=== PATIENT | female | born 1950 | race Two or more races ===

== ENCOUNTER 2020-08-21 05:56 | Outpatient (REF) | payer MEDICARE, SELFPAY ==
[2020-08-21 06:57] LABS: Basophils Absolute Auto 0.1 X10*3/uL (0.0-0.2); Basophils Percent Auto 1.1 % (0-2); Eosinophils Absolute Auto 0.6 X10*3/uL (0.0-0.4); Eosinophils Percent Auto 7.8 % (0-4); Hematocrit 40.3 % (37-47); Hemoglobin 12.8 g/dl (12.0-16.0); Imm Gran Abs Auto 0.04 X10*3/uL (0.00-0.03); Imm Gran Pct Auto 0.6 % (0.0-0.4); Lymphocytes Absolute Auto 2.5 X10*3/uL (1.2-4.9); Lymphocytes Percent Auto 35.7 % (20-40); MANUAL DIFF FLAG NO; Mean Corpuscular HGB Conc 31.8 g/dl (31.0-35.0); Mean Corpuscular Hemoglobin 27.4 pg (27.0-33.0); Mean Corpuscular Volume 86.1 fL (80-98); Mean Platelet Volume 9.9 fL (9.4-12.3); Monocytes Absolute Auto 0.7 X10*3/uL (0.1-1.2); Monocytes Percent Auto 9.9 % (2-11); Neutrophils Absolute Auto 3.2 X10*3/uL (2.0-8.3); Neutrophils Percent Auto 44.9 % (45-73); Platelet Count 268 X10*3/uL (160-400); Red Blood Count 4.68 X10*6/uL (4.20-5.50); Red Cell Distribution Width 13.3 % (11.0-16.0); White Blood Count 7.1 X10*3/uL (4.8-10.8)
[2020-08-21 07:36] LABS: Alanine Aminotransferase 11 U/L (0-31); Albumin Level 4.2 g/dL (3.5-5.0); Alkaline Phosphatase 67 U/L (39-117); Anion Gap 12 (12-20); Aspartate Amino Transferase 14 U/L (5-31); Bilirubin Total 0.5 mg/dL (0.0-1.0); Blood Urea Nitrogen 14 mg/dL (9-16); Calcium 8.9 mg/dL (8.4-10.2); Carbon Dioxide 28 mmol/L (22-29); Chloride 103 mmol/L (96-108); Cholesterol 170 mg/dL; Estimated Glomerular Filt Rate > 60; Glucose Random 110 mg/dL (60-115); HDL Cholesterol 49 mg/dL; LDL Cholesterol Calculated 103 mg/dl; Potassium 4.3 mmol/L (3.3-5.1); Sodium 139 mmol/L (135-145); Total Protein 6.5 g/dL (6.5-8.0); Triglycerides 93 mg/dL
[2020-08-21 07:59] LABS: Free T4 (Free Thyroxine) 0.98 ng/dL (0.71-1.85); Thyroid Stimulating Hormone 1.73 uIU/mL (0.32-4.0); Vitamin D 25-OH Total 12.2 ng/mL (>30)
[2020-08-21 08:05] LABS: Estimated Average Glucose 128 mg/dL; Hemoglobin A1c % 6.1 %
[2020-08-21 08:49] LABS: Folate 15.1 ng/mL (> or = 4.0); Vitamin B12 863 pg/mL (200-900)
[2020-08-21 08:50] LABS: Creatinine Urine 111.84 mg/dL; Microalbum/Creatinine Ratio Ur 4.4 ug/mg cr
== END 2020-08-21 05:57 | disposition home or self-care (01) ==
LOC: HO.LAB 05:56
PROVIDERS: PCP Internal Medicine; Visit Provider Internal Medicine
DX: E78.00 Pure hypercholesterolemia, unspecified (principal); E11.65 Type 2 diabetes mellitus with hyperglycemia; M85.80 Other specified disorders of bone density and structure, unspecified site
CPT/HCPCS: 36415; 80053; 80061; 82043; 82306; 82607; 82746; 83036; 84439; 84443; 85025

== ENCOUNTER 2020-08-24 08:36 | Outpatient (REF) | payer MEDICARE, SELFPAY ==
--- NOTE | ~2020-08-24 | MM_ITS ---
EXAMINATION: MM SCREENING DIGITAL BREAST TOMOSYNTHESIS, BILATERAL CLINICAL INFORMATION: Screening. Asymptomatic. The lifetime risk of breast cancer based on the Tyrer-Cuzick Model is 3%. COMPARISON: Mammography: 06/06/2019, 05/14/2018, 04/22/2017, 03/07/2016, 08/17/2014 TECHNIQUE: Digital breast tomosynthesis is performed in both the craniocaudal and mediolateral oblique views along with computer-aided detection (CAD). Synthesized 2D images are generated from the tomosynthesis. FINDINGS: The breasts are heterogeneously dense, which may obscure small masses (ACR BI-RADS breast composition Category c). Right breast parenchymal pattern is similar to prior exams. Neither breast shows abnormal calcifications. The bilateral axilla and skin contours are unremarkable. Left CC view has nodular asymmetric density mid outer quadrant, 6.7 cm from nipple. There is no correlate on MLO view. Finding may represent incompletely compressed glandular tissue or summation artifact. Remainder of the left breast is similar to prior studies. MM/MM tomosynthesis screening BI IMPRESSION: 1. Left: Nodular asymmetric density limited to CC view mid outer quadrant, possibly summation artifact or interval breast glandular tissue. 2. Right: No mammographic evidence of malignancy. ASSESSMENT: BI-RADS 0: Incomplete - Need Additional Imaging Evaluation RECOMMENDATION: 1. Additional views of the left breast (3-D spot CC, 3-D rolled CC). 2. Targeted ultrasound if warranted after review of the additional views. 3. Radiology department staff will contact the patient for additional imaging. This patient's information was entered into a reminder system with a target due date for their next mammogram.
== END 2020-08-24 08:37 | disposition home or self-care (01) ==
LOC: HO.MAMMO 08:36
PROVIDERS: PCP Internal Medicine; Visit Provider Internal Medicine
DX: Z12.31 Encounter for screening mammogram for malignant neoplasm of breast (principal)
CPT/HCPCS: 77063; 77067

== ENCOUNTER 2020-09-16 13:00 | Outpatient (REF) | payer MEDICARE, SELFPAY ==
--- NOTE | ~2020-09-16 | MM_ITS ---
EXAMINATION: MM DIAGNOSTIC DIGITAL BREAST TOMOSYNTHESIS, LEFT US DIAGNOSTIC ULTRASOUND BREAST, LEFT CLINICAL INFORMATION: Recall from screening for nodular asymmetric density mid outer breast on CC view, possibly summation artifact or incompletely compressed glandular tissue. The lifetime risk of breast cancer based on the Tyrer-Cuzick Model is 3%. TECHNIQUE: Digital breast tomosynthesis is performed. 2D images are generated from the tomosynthesis. The following views are obtained: Rolled CC x2, spot CC x2 Ultrasound left breast is targeted to the outer quadrant. Grayscale imaging and color Doppler are performed without and with harmonics. Patient is imaged with left arm down and left arm up. FINDINGS: The breasts are heterogeneously dense, which may obscure small masses (ACR BI-RADS breast composition Category c). The additional views show scattered shifting background parenchymal densities without focal mass or developing density or architectural abnormality. Ultrasound demonstrates no cystic or solid mass or architectural abnormality. No focal duct ectasia. Results are discussed with the patient at time of visit, using an accelerator technician. MM/MM tomosynthesis added views L IMPRESSION: Additional imaging shows no persistent asymmetric density. Unremarkable targeted left breast ultrasound. ASSESSMENT: BI-RADS 2: Benign RECOMMENDATION: Routine annual mammography screening. This patient's information was entered into a reminder system with a target due date for their next mammogram.
== END 2020-09-16 13:01 | disposition home or self-care (01) ==
LOC: HO.MAMMO 13:00
PROVIDERS: Visit Provider Internal Medicine
DX: R92.2 Inconclusive mammogram (principal)
CPT/HCPCS: 76642; 77061; 77065

== ENCOUNTER 2021-06-04 05:54 | Outpatient (REF) | payer MEDICARE, SELFPAY ==
[2021-06-04 06:09] LABS: MANUAL DIFF FLAG NO
[2021-06-04 07:28] LABS: Basophils Absolute Auto 0.1 X10*3/uL (0.0-0.2); Basophils Percent Auto 1.2 % (0-2); Eosinophils Absolute Auto 0.7 X10*3/uL (0.0-0.4); Eosinophils Percent Auto 9.8 % (0-4); Hematocrit 40.3 % (37.0-47.0); Hemoglobin 12.8 g/dl (12.0-16.0); Imm Gran Abs Auto 0.02 X10*3/uL (0.00-0.03); Imm Gran Pct Auto 0.3 % (0.0-0.4); Lymphocytes Percent Auto 41.2 % (20-40); Mean Corpuscular HGB Conc 31.8 g/dl (31.0-35.0); Mean Corpuscular Hemoglobin 27.5 pg (27.0-33.0); Mean Corpuscular Volume 86.5 fL (80.0-98.0); Mean Platelet Volume 10.1 fL (9.4-12.3); Monocytes Absolute Auto 0.7 X10*3/uL (0.1-1.2); Monocytes Percent Auto 9.1 % (2-11); Neutrophils Absolute Auto 2.8 x10*3/uL (2.0-8.3); Neutrophils Percent Auto 38.4 % (45-73); Platelet Count 294 X10*3/uL (160-400); Red Blood Count 4.66 X10*6/uL (4.20-5.50); Red Cell Distribution Width 13.2 % (11.0-16.0); White Blood Count 7.4 X10*3/uL (4.8-10.8)
[2021-06-04 07:55] LABS: Alanine Aminotransferase 9 U/L (0-31); Albumin Level 4.1 g/dL (3.5-5.0); Alkaline Phosphatase 64 U/L (39-117); Anion Gap 11 (12-20); Aspartate Amino Transferase 12 U/L (5-31); Bilirubin Total 0.7 mg/dL (0.0-1.0); Blood Urea Nitrogen 13 mg/dL (9-16); Calcium 9.6 mg/dL (8.4-10.2); Carbon Dioxide 30 mmol/L (22-29); Chloride 104 mmol/L (96-108); Cholesterol 208 mg/dL; Estimated Glomerular Filt Rate > 60; Glucose Random 110 mg/dL (60-115); HDL Cholesterol 57 mg/dL; LDL Cholesterol Calculated 132 mg/dl; Potassium 4.2 mmol/L (3.3-5.1); Sodium 141 mmol/L (135-145); Total Protein 6.5 g/dL (6.5-8.0); Triglycerides 97 mg/dL
[2021-06-04 08:08] LABS: Free T4 (Free Thyroxine) 0.97 ng/dL (0.71-1.85); Vitamin D 25-OH Total 13.3 ng/mL (>30)
[2021-06-04 08:18] LABS: Folate 13.6 ng/mL (> or = 4.0); Vitamin B12 783 pg/mL (200-900)
[2021-06-04 13:37] LABS: Creatinine Urine 36.18 mg/dL
== END 2021-06-04 05:55 | disposition home or self-care (01) ==
LOC: HO.LAB 05:54
PROVIDERS: PCP Internal Medicine; Visit Provider Internal Medicine
DX: E11.65 Type 2 diabetes mellitus with hyperglycemia (principal); E78.00 Pure hypercholesterolemia, unspecified
CPT/HCPCS: 36415; 80053; 80061; 82306; 82607; 82746; 84439; 84443; 85025

== ENCOUNTER 2021-09-20 07:59 | Outpatient (REF) | payer OTHER, SELFPAY ==
--- NOTE | ~2021-09-20 | MM_ITS ---
EXAMINATION: MM SCREENING DIGITAL BREAST TOMOSYNTHESIS, BILATERAL CLINICAL INFORMATION: Screening. Asymptomatic. The lifetime risk of breast cancer based on the Tyrer-Cuzick Model is 2%. COMPARISON: Mammography: 09/16/2020, 08/24/2020, 06/06/2019, 05/14/2018 TECHNIQUE: Digital breast tomosynthesis is performed in both the craniocaudal and mediolateral oblique views along with computer-aided detection (CAD). Synthesized 2D images are generated from the tomosynthesis. FINDINGS: The breasts are heterogeneously dense, which may obscure small masses (ACR BI-RADS breast composition Category c). Parenchymal pattern is similar to prior studies. No developing density or interval architectural abnormality. There is a stable circumscribed nodule posterior upper outer right breast, now with some associated peripheral coarse calcification suggesting degenerating fibroadenoma. There are bilateral vascular calcifications. The axilla are unremarkable. No significant changes. MM/MM tomosynthesis screening BI IMPRESSION: No mammographic evidence of malignancy. ASSESSMENT: BI-RADS 2: Benign RECOMMENDATION: Routine annual mammography screening. This patient's information was entered into a reminder system with a target due date for their next mammogram.
== END 2021-09-20 08:00 | disposition home or self-care (01) ==
LOC: HO.MAMMO 07:59
PROVIDERS: PCP Internal Medicine; Visit Provider Internal Medicine
DX: Z12.31 Encounter for screening mammogram for malignant neoplasm of breast (principal)
CPT/HCPCS: 77063; 77067

== ENCOUNTER 2022-01-16 08:20 | Outpatient (REF) | payer MEDICARE, MEDICAID, SELFPAY ==
--- NOTE | ~2022-01-16 | MM_ITS ---
EXAMINATION: BONE DENSITOMETRY CLINICAL INDICATION: Age-related osteoporosis without current pathological fracture. COMPARISON: Previous BD dated 12/20/2019 and baseline BD dated 10/16/2010. TECHNIQUE: Using a [employer] DXA System (software version: 13.1) manufactured by [employer], dual-energy x-ray absorptiometry was performed of the lumbar spine and left hip. The images are of good technical quality. Summary results are attached. FINDINGS: AP SPINE L1-L4: Current: BMD 1.204 g/cm2, Z-score 2.3, T-score 0.2, normal, 7.5% decrease from previous, 9.5% decrease from baseline (<5% change is not significant). Prior: BMD 1.301 g/cm2. Baseline: BMD 1.330 g/cm2. LEFT FEMUR, NECK: Current: BMD 0.875 g/cm2, Z-score 0.9, T-score -1.2, osteopenia. Prior: BMD 0.721 g/cm2. Baseline: BMD 0.840 g/cm2. LEFT FEMUR, TOTAL: Current: BMD 0.884 g/cm2, Z-score 0.9, T-score -1.0, normal, 10.9% increase from previous, 11.0% decrease from baseline (<5% change is not significant). Prior: BMD 0.797 g/cm2. Baseline: BMD 0.993 g/cm2. IDENTIFIED RISK FACTORS: Menopause, history of fracture (adult). HISTORY OF FRACTURE: Ankle. MEDICATIONS: None listed. MM/XR DEXA axial skeleton IMPRESSION: 1. DIAGNOSIS: Osteopenia based on the lowest T-score value of -1.2 in the femoral neck applying World Health Organization criteria. 2. 10-YEAR FRACTURE RISK PREDICTION, FRAX: Major osteoporotic fracture (clinical spine, forearm, hip or shoulder) 8.0%. Hip fracture 1.1%. 3. Treatment Recommendations: NOF guidelines recommend consideration for treatment in postmenopausal women and men age 50 and older presenting with the following: -A hip or vertebral (clinical or morphometric) fracture. -T-score less than or equal to -2.5 at the femoral neck or spine after appropriate evaluation to exclude secondary causes. -Low bone mass at the hip or spine and a 10-year fracture probability by FRAX of greater than or equal to 3% for hip fracture or greater than or equal to 20% for major osteoporotic fracture based on the [place] adapted WHO algorithm. 4. Other Recommendations: All treatment decisions require clinical judgment and consideration of individual patient factors, including patient preferences, comorbidities, previous drug use, risk factors not captured in the FRAX model (e.g. frailty, falls, vitamin D deficiency, increased bone turnover, interval significant decline in bone density) and possible under or overestimation of fracture risk by FRAX. Additional medical evaluation for secondary cause of low bone mineral density may be appropriate. FUTURE SCAN RECOMMENDATION: People with diagnosed cases of osteoporosis or at high risk for fracture should have regular bone mineral density tests. For patients eligible for Medicare, routine testing is allowed once every 2 years. The testing frequency can be increased to one year for patients who have rapidly progressing disease, those who are receiving or discontinuing medical therapy to restore bone mass, or have additional risk factors.
== END 2022-01-16 08:21 | disposition home or self-care (01) ==
LOC: HO.MAMMO 08:20
PROVIDERS: PCP Internal Medicine; Visit Provider Internal Medicine
DX: Z13.820 Encounter for screening for osteoporosis (principal); M85.89 Other specified disorders of bone density and structure, multiple sites; M81.0 Age-related osteoporosis without current pathological fracture; Z78.0 Asymptomatic menopausal state
CPT/HCPCS: 77080

== ENCOUNTER 2022-07-25 07:17 | Outpatient (REF) | payer OTHER, SELFPAY ==
[2022-07-25 07:30] LABS: MANUAL DIFF FLAG NO
[2022-07-25 08:21] LABS: Basophils Absolute Auto 0.1 X10*3/uL (0.0-0.2); Basophils Percent Auto 1.2 % (0-2); Eosinophils Absolute Auto 0.3 X10*3/uL (0.0-0.4); Eosinophils Percent Auto 4.4 % (0-4); Hemoglobin 13.1 g/dl (12.0-16.0); Imm Gran Abs Auto 0.01 X10*3/uL (0.00-0.03); Imm Gran Pct Auto 0.2 % (0.0-0.4); Lymphocytes Absolute Auto 2.9 X10*3/uL (1.2-4.9); Lymphocytes Percent Auto 50.3 % (20-40); Mean Corpuscular HGB Conc 32.8 g/dl (31.0-35.0); Mean Corpuscular Hemoglobin 27.6 pg (27.0-33.0); Mean Corpuscular Volume 84.2 fL (80.0-98.0); Mean Platelet Volume 9.3 fL (9.4-12.3); Monocytes Absolute Auto 0.5 X10*3/uL (0.1-1.2); Monocytes Percent Auto 8.9 % (2-11); Platelet Count 277 X10*3/uL (160-400); Red Blood Count 4.75 X10*6/uL (4.20-5.50); White Blood Count 5.7 X10*3/uL (4.8-10.8)
[2022-07-25 08:33] LABS: Estimated Average Glucose 134 mg/dL; Hemoglobin A1c % 6.3 %
[2022-07-25 08:57] LABS: Alanine Aminotransferase 8 U/L (0-31); Albumin Level 3.9 g/dL (3.5-5.0); Alkaline Phosphatase 74 U/L (39-117); Anion Gap 12 (12-20); Aspartate Amino Transferase 14 U/L (5-31); Bilirubin Total 0.6 mg/dL (0.0-1.0); Blood Urea Nitrogen 21 mg/dL (9-16); Calcium 9.2 mg/dL (8.4-10.2); Carbon Dioxide 27 mmol/L (22-29); Chloride 103 mmol/L (96-108); Cholesterol 229 mg/dL; Estimated Glomerular Filt Rate > 60; Glucose Random 99 mg/dL (60-115); HDL Cholesterol 53 mg/dL; LDL Cholesterol Calculated 167 mg/dl; Potassium 4.7 mmol/L (3.3-5.1); Sodium 137 mmol/L (135-145); Total Protein 6.1 g/dL (6.5-8.0); Triglycerides 49 mg/dL
[2022-07-25 09:10] LABS: Creatinine Urine 27.69 mg/dL; Microalbumin Urine < 5.0 mg/L
[2022-07-25 09:25] LABS: Folate 10.3 ng/mL (> or = 4.0); Thyroid Stimulating Hormone 1.02 uIU/mL (0.32-4.0); Vitamin B12 792 pg/mL (200-900); Vitamin D 25-OH Total 11.1 ng/mL (>30)
== END 2022-07-25 07:18 | disposition home or self-care (01) ==
LOC: HO.LAB 07:17
PROVIDERS: PCP Internal Medicine; Visit Provider Internal Medicine
DX: E78.00 Pure hypercholesterolemia, unspecified (principal); M85.89 Other specified disorders of bone density and structure, multiple sites; E11.65 Type 2 diabetes mellitus with hyperglycemia
CPT/HCPCS: 36415; 80053; 80061; 82043; 82306; 82607; 82746; 83036; 84439; 84443; 85025

== ENCOUNTER 2022-10-31 08:51 | Outpatient (REF) | payer OTHER, SELFPAY ==
--- NOTE | ~2022-10-31 | MM_ITS ---
EXAMINATION: MM SCREENING DIGITAL BREAST TOMOSYNTHESIS, BILATERAL CLINICAL INFORMATION: Screening. Asymptomatic. The lifetime risk of breast cancer based on the Tyrer-Cuzick Model is 4%. COMPARISON: Mammography: 09/20/2021, 09/16/2020, 08/24/2020, 06/06/2019 TECHNIQUE: Digital breast tomosynthesis is performed in both the craniocaudal and mediolateral oblique views along with computer-aided detection (CAD). Synthesized 2D images are generated from the tomosynthesis. FINDINGS: The breasts are heterogeneously dense, which may obscure small masses (ACR BI-RADS breast composition Category c). There are no significant masses, abnormal calcifications, or other abnormalities. Parenchymal pattern is similar to prior studies. There is no developing density or architectural abnormality. There is a chronic small nodule posterior upper outer right breast with bulky calcifications suggesting degenerating fibroadenoma. Bilateral vascular calcifications are again seen. The axilla and skin contours are unremarkable. No significant changes. MM/MM tomosynthesis screening BI IMPRESSION: No mammographic evidence of malignancy. ASSESSMENT: BI-RADS 2: Benign RECOMMENDATION: Routine annual mammography screening. This patient's information was entered into a reminder system with a target due date for their next mammogram.
== END 2022-10-31 08:52 | disposition home or self-care (01) ==
LOC: HO.MAMMO 08:51
PROVIDERS: PCP Internal Medicine; Visit Provider Internal Medicine
DX: Z12.31 Encounter for screening mammogram for malignant neoplasm of breast (principal)
CPT/HCPCS: 77063; 77067

== ENCOUNTER 2023-05-14 09:54 | Outpatient (AMB) | payer OTHER, SELFPAY ==
--- NOTE | 2023-05-14 09:55 | MHC.PC.OV ---
Vital Signs 05/14/23 10:00 Height 5 ft 2 in Weight 116 lb 0.8 oz BMI 21.2 BP 152/78 H Blood Pressure Location Lt brachial Position Sitting Pulse 66 Pulse Source Pulse Oximeter Pulse Oximetry (%) 100 Oxygen Delivery Method Room Air Intake Visit Reasons: F/Up DM Intake Note: Patient is here to follow up on DM Allergies pravastatin Allergy (Unknown, Verified 05/14/23 10:03) Unknown simvastatin Allergy (Unknown, Verified 05/14/23 10:03) Unknown metformin Adverse Reaction (Intermediate, Verified 05/14/23 10:03) Abdominal Pain Tobacco use date assessed: 05/14/23 Fall risk assessment: No Falls in past year Last assessed Fall Risk: 05/14/23 Dental Screening Dental Screen Date: 05/14/23 Did you have a dental visit in the last 12 months?: No Did you have a dental problem in the last 6 months where you did not have access to dental care?: No HPI F/Up DM HPI Details 72-year-old female with controlled diabetes mellitus hypercholesterolemia generalized anxiety disorder coming in for follow-up. Last seen in October 2022 patient had some concerns about blood pressure being elevated. Patient's mammogram is up-to-date declined colonoscopy COUNTS INCLUDE 234 BEDS AT THE [facility] Medical History (Updated 05/14/23 @ 10:28 by Lucia Curry MD) Anxiety Seizure disorder Vitamin D deficiency Osteopenia Hypercholesterolemia Type 2 diabetes mellitus with hyperglycemia Surgical History History of tubal ligation Family History (Updated 11/12/22 @ 10:02 by Nilda Best CMA) Father Hypertension Mother Cancer Brother Diabetes Social History Housing: Apartment Alcohol intake: never Patient Tobacco Use Status: Former Tobacco user Tobacco use type: Cigarette e-Cigarette/Vaping Use: Never Used Second Hand Smoke Exposure: No Current occupational status: retired Cognitive needs: No Hearing needs: No Vision needs: Yes Questionnaire Thrive Questionnaire Date Thrive assessed: 07/30/22 AUDIT C Alcohol Use Questionnaire (AUDIT-C) 1. How often do you have a drink containing alcohol?: Never 3. How often do you have six or more drinks on one occasion?: Never Total Score: 0 Score Reviewed/Action Taken: No LAZARUS-7 AMB Questionnaire LAZARUS-7 Date LAZARUS - 7 assessed: 07/30/22 Source: Developed by DrsVanessa Engel, Regine Lenz, Sharan Ervin and colleagues, with an educational armando from [employer]. Physical exam (Primary Care) Vital Signs: Last Vital Signs Pulse 66 05/14/23 10:00 BP 152/78 H 05/14/23 10:00 Pulse Ox 100 05/14/23 10:00 Oxygen Delivery Method Room Air 05/14/23 10:00 BMI result Body Mass Index 21.2 Tobacco/Smoking Status: Tobacco use Status Tobacco use date assessed 05/14/23 05/14/23 10:05 Patient Tobacco Use Status Former Tobacco user 05/14/23 09:56 Tobacco use type Cigarette 05/14/23 09:56 e-Cigarette/Vaping Use Never Used 05/14/23 09:56 Thrive Assessment: Date of Thrive Assessment Date Thrive assessed 07/30/22 05/14/23 09:56 Const General: alert; No acute distress Eyes Conjunctivae: conjunctivae normal Resp Auscultation: clear to auscultation bilaterally Cardio Rate: regular rate Rhythm: regular rhythm GI Inspection: Yes normal to inspection Extrem General: Yes normal to inspection and No edema Results AMB Hemoglobin A1c AMB Hemoglobin A1c 6.1 % Last Edit by AURE Roth on 05/14/23 10:10 Results Reviewed Results Reviewed: Laboratory Last Values Hgb A1c (Clinic) 6.1 % (4.0-6.0) H 05/14/23 09:05 Assessment and Plan Assessment & Plan (1) Type 2 diabetes mellitus with hyperglycemia: Comment: EYE and lasik Code(s): E11.65 - Type 2 diabetes mellitus with hyperglycemia Qualifiers: Diabetes mellitus salvage determiner insulin use: without nursing home use Qualified Code(s): E11.65 - Type 2 diabetes mellitus with hyperglycemia Plan: Decrease the amount of carbohydrate intake, pasta, bread, rice and potatoes are all sugar and that is aside from all the sweet stuff, remember that fruits are good but they are Sweet also. Hemoglobin A1c goal of less than 7.0. Patient is at goal diet controlled (2) Hypercholesterolemia: Code(s): E78.00 - Pure hypercholesterolemia, unspecified Plan: Avoid fried foods, chicken skin, eggs, butter margarine, pastries and meat. Be it pork or beef they have a lot of cholesterol LDL goal of less than 100 and triglyceride of less than 150 statin intolerant and on Zetia 10 mg once a day (3) Hypertension: Code(s): I10 - Essential (primary) hypertension Plan: Continue with blood pressure medication. Decrease salt intake and exercise presently on lisinopril 1.25 mg once a day Orders: Orders Free T4 (Free Thyroxine) 3 Months . - Type 2 diabetes mellitus with hyperglycemia Microalbumin, Random (w Creat) 3 Months . - Type 2 diabetes mellitus with hyperglycemia Vitamin D 25-OH Total 3 Months . - Type 2 diabetes mellitus with hyperglycemia AMB Hemoglobin A1c Today . - Type 2 diabetes mellitus with hyperglycemia Complete Blood Count Auto Diff 3 Months . - Type 2 diabetes mellitus with hyperglycemia Comprehensive Met. Panel 3 Months - Type 2 diabetes mellitus with hyperglycemia Thyroid Stimulating Hormone 3 Months . - Type 2 diabetes mellitus with hyperglycemia Vitamin B12 and Folate 3 Months . - Type 2 diabetes mellitus with hyperglycemia Lipid Panel 3 Months - Type 2 diabetes mellitus with hyperglycemia, E78.00 - Pure hypercholesterolemia, unspecified Creatinine Urine 3 Months . - Type 2 diabetes mellitus with hyperglycemia Hemoglobin A1c 3 Months . - Type 2 diabetes mellitus with hyperglycemia Medications: New rosuvastatin 5 mg PO DAILY 30 tabs 4RF E78.00 - Pure hypercholesterolemia, unspecified Changed From lisinopril 1.25 mg (1/2 x 2.5 mg) PO DAILY 90 days 45 tabs 3RF . - Type 2 diabetes mellitus with hyperglycemia To lisinopril 5 mg PO DAILY 90 tabs 3RF 90 days - Type 2 diabetes mellitus with hyperglycemia Coding Level of Care Code Est Pt Level 4 (33332) Diagnoses Type 2 diabetes mellitus with hyperglycemia, without long-term current use of insulin Diabetes mellitus nursing home insulin use: without salvage determiner use Hypercholesterolemia E78.00 Hypertension I10
[2023-05-14 10:00] VITALS: BP 152/78; PULSE 66; O2SAT 100; BMI 21.2
== END 2023-05-14 10:43 | disposition home or self-care (01) ==
PROVIDERS: PCP Internal Medicine; Visit Provider Internal Medicine
DX: E11.65 Type 2 diabetes mellitus with hyperglycemia (principal); E78.00 Pure hypercholesterolemia, unspecified; I10 Essential (primary) hypertension
CPT/HCPCS: 83036; 99214

== ENCOUNTER 2023-08-07 09:11 | Outpatient (AMB) | payer OTHER, SELFPAY ==
[2023-08-07 09:18] VITALS: BP 122/72; PULSE 82; TEMP 36.7; O2SAT 98; BMI 21.2
--- NOTE | 2023-08-07 09:18 | AM.OFFWIN_ITS ---
Intake Vital Signs 08/07/23 09:18 Height 5 ft 2 in Weight 116 lb BMI 21.2 BP 122/72 Blood Pressure Location Rt brachial Position Sitting Pulse 82 Pulse Source Pulse Oximeter Temp 98.1 F Temp Source Oral Pulse Oximetry (%) 98 Intake Visit Reasons: EP Unbalanced while walking/unable to explain Intake Note: pt is here for c/o unbalanced feelng when walking since yesterday Patient Tobacco Use Status: Former Tobacco user Allergies pravastatin Allergy (Unknown, Verified 08/07/23 09:20) Unknown simvastatin Allergy (Unknown, Verified 08/07/23 09:20) Unknown metformin Adverse Reaction (Intermediate, Verified 08/07/23 09:20) Abdominal Pain Do you need a note to return to daycare/school/sports/work: No HPI HPI Comments History of Present Illness Details 73-year-old female history of hypertensi on that presents for balance instability. She feels unstable on her feet x1 day. Does not use any walking assistance or 8 at home. This has never happened before in addition she endorses a slight headache and pressure in her head. She denies any trauma not on any blood thinners denies chest pain shortness for breath abdominal pain nausea or vomiting. Denies any dizziness or room spinning or feel like she might pass out. [facility] Medical History (Updated 08/07/23 @ 09:52 by NATTY Ferreira) Anxiety Seizure disorder Vitamin D deficiency Osteopenia Hypercholesterolemia Type 2 diabetes mellitus with hyperglycemia Surgical History History of tubal ligation Family History (Updated 11/12/22 @ 10:02 by Nilda Best CMA) Father Hypertension Mother Cancer Brother Diabetes Social History Housing: Apartment Alcohol intake: never Patient Tobacco Use Status: Former Tobacco user Tobacco use type: Cigarette e-Cigarette/Vaping Use: Never Used Second Hand Smoke Exposure: No Current occupational status: retired Cognitive needs: No Hearing needs: No Vision needs: Yes Physical Exam Vital Signs: Last Vital Signs Temp 98.1 F 08/07/23 09:18 Pulse 82 08/07/23 09:18 BP 122/72 08/07/23 09:18 Pulse Ox 98 08/07/23 09:18 BMI result Body Mass Index 21.2 Const General: cooperative, no acute distress and alert Orientation/consciousness: patient oriented x3 Limitations: no limitations HEENT Head: Yes normal to inspection Ears: hearing grossly normal bilaterally and external ears normal General nose exam: Normal external nose present Eyes General: appearance normal, both eyes and all related structures Neck Neck: Yes normal visual inspection Chest Chest palpation & inspection: normal inspection of the chest Resp Effort & Inspection: normal respiratory effort, able to speak in complete sentences and no audible wheezes Auscultation: clear to auscultation bilaterally Cardio Rate: regular rate Rhythm: regular rhythm GI Inspection: Yes normal to inspection Palpation (GI): Soft to palpation and nontender Skin General skin exam: no rashes or lesions noted Neuro Other: NEURO PHYSCIAL EXAM Alert and oriented to person, place, time speech: clear, fluent CN II: visual acuity grossly intact b/l, PERRLA CN III, IV, : EOMI CN V: facial sensation grossly intact to light touch b/l CN VII: symmetric facial movement b/l, no facial droop CN VIII: hearing intact to finger rub b/l, no nystagmus CN IX, X: uvula midline CN XI: 5/5 strength with SCM and trapezius b/l CN XII: midline tongue protrusion, no atrophy or fasciculations motor: 5/5 muscle strength of UE/LE b/l, no pronator drift sensory: grossly intact b/l to light touch coordination: No dysmetria or dysdiadochokinesia with rapid alternating movement and finger to nose testing General: patient oriented x3 Psych Appearance: grossly normal Mental Status: mental status grossly normal Speech and movement: Normal speech and movement present Affect: normal affect Attitude: cooperative Thought process: Normal thought process present Thought content: Normal thought content present Assessment & Plan Assessment & Plan (1) Balance disorder: Code(s): R26.89 - Other abnormalities of gait and mobility Plan: VSS. On exam patient presents alert and oriented no acute distress exam was largely unremarkable. Neuro exam unremarkable. Gait with slight instability when ambulating. No other concerning findings on examination. Unclear etiology of patient's cause of instability. Low suspicion for infectious etiology given no urinary symptoms chest pain shortness for breath productive cough fever or chills. Exam however given the acuteness in the balance instability did explain to patient that it was somewhat limited due to lack of imaging in the walk-in setting. Recommend given patient's age and risk factors that she proceed to the emergency department for further evaluation. Coding Level of Care Code Est Pt Level 2 (27913) Diagnoses Balance disorder R26.89
== END 2023-08-07 09:54 | disposition home or self-care (01) ==
PROVIDERS: PCP Internal Medicine; Visit Provider Physician Assistant
DX: R26.89 Other abnormalities of gait and mobility (principal)
CPT/HCPCS: 99212

== ENCOUNTER 2023-08-07 10:08 | Inpatient (IN) | payer OTHER, SELFPAY ==
[2023-08-07] VITALS (7 sets, daily range): BP systolic 88–157; BP diastolic 42–68; PULSE 74–89; RESP 16–20; TEMP 36.1–36.8; O2SAT 97–100; BMI 20.1
--- NOTE | ~2023-08-07 | MR_ITS ---
EXAMINATION: MR BRAIN WITH CONTRAST CLINICAL INFORMATION: Dizziness, concern for demyelinating disease COMPARISON: MRI brain 08/07/2023 TECHNIQUE: MRI of the brain was obtained using on the postcontrast spin echo sequences following administration of intravenous contrast. A total of 5 mL of Gadavist was administered intravenously. FINDINGS: No pathologic intracranial enhancement associated with the supratentorial white matter lesions. However, there is enhancement associated with a single infratentorial lesion along the dorsal roel suggestive of active demyelination (image 9, series 4). Please refer to prior brain MRI for discussion of additional findings. MR/MR head/brain w con IMPRESSION: Enhancement associated with a single infratentorial lesion along the dorsal roel suggestive of active demyelination. No pathologic intracranial enhancement associated with the supratentorial white matter lesions. Consider contrast enhanced MRI of the cervical and thoracic spine to assess for possibility of demyelinating plaques in the cervicothoracic cord.
--- NOTE | ~2023-08-07 | MR_ITS ---
EXAMINATION: MR BRAIN WITHOUT CONTRAST CLINICAL INFORMATION: Dizziness COMPARISON: CT head from earlier same day TECHNIQUE: MRI of the brain was obtained using routine sequences without contrast. FINDINGS: There are a few (less than 5) and T2 FLAIR hyperintense lesions in the supratentorial brain parenchyma, one of which is somewhat ovoid in the left hernandez radiata demonstrating corresponding T2 shine through on diffusion weighted imaging. There is an additional lesion in the right centrum semiovale/hernandez radiata radiating from the upper margin of the right lateral ventricle and additional lesion in the right temporal lobe periventricular white matter. The lesions demonstrate corresponding T1 hypointense signal. Constellation of findings raises suspicion of underlying demyelinating disease. Consider further evaluation with postcontrast sequences there is concern for acute demyelination and correlation with CSF fluid sampling. There is a T2 FLAIR hyperintense lesion within the right paramidline dorsal roel. No acute infarct. No acute intracranial hemorrhage or extra-axial fluid collection. Mild global cerebral volume loss. No mass lesion, mass effect, or herniation pattern. Normal intracranial arterial and dural venous sinus flow voids. Borderline low-lying left cerebellar tonsil terminating above to 4 mm below the foramen magnum with crowding and partial effacement of the cervicomedullary CSF. Better appreciated on CT is focal ossification at the right posterolateral foramen magnum interposed between somewhat dysmorphic/hypertrophic appearing skull base and C1 posterior arch, presumably congenital or posttraumatic in etiology. Ossification/hypertrophic bone projects into the posterior fossa/foramen magnum and causing slight mass effect/uplifting of the inferior right cerebellum and inward displacement of the dura with encroachment upon the right aspect of the cervicomedullary junction. . Expanded partially empty sella. The orbits are grossly unremarkable. Trace ethmoid air cell mucosal thickening. No mastoid effusion. Normal marrow signal. MR/MR head/brain wo con IMPRESSION: 1. There are a few (less than 5) supratentorial and single infratentorial white matter lesions with imaging findings raising suspicion for underlying demyelinating disease. Consider further evaluation with postcontrast sequences there is concern for acute demyelination and correlation with CSF fluid sampling. 2. No acute infarct. 3. Better appreciated on CT is focal ossification at the right posterolateral foramen magnum interposed between and articulating with dysmorphic and hypertrophic appearing skull base and C1 posterior arch, presumably congenital or posttraumatic in etiology. Ossification/hypertrophic bone projects into the posterior fossa/foramen magnum, causing slight mass effect/uplifting of the inferior right cerebellum and inward displacement of the dura with encroachment upon the right aspect of the cervicomedullary junction. 4. Expanded partially empty sella.
--- NOTE | ~2023-08-07 | FL_ITS ---
FLUOROSCOPIC GUIDED LUMBAR PUNCTURE INDICATION: Demyelinating disease an MRI Risks and benefits and possible complications were discussed with the patient and the consent form was signed. Patient was placed prone on the fluoroscopy table. The back was prepped and draped in routine sterile fashion. Betadine was used as a skin antiseptic. Utilizing fluoroscopic guidance, the L4-5 interlaminar space was accessed with a 22 gauge Ruthy spinal needle and clear CSF fluid obtained. 8 cc of fluid was sent for analysis. The needle was removed without immediate complications. Total fluoroscopy time: 0.8 min FL/FL guided lumbar puncture LP IMPRESSION: Successful fluoroscopic lumbar puncture This procedure was performed by Kenneth Michael PA-C and supervised by Dr. Neal.
--- NOTE | ~2023-08-07 | CT_ITS ---
EXAMINATION: CT HEAD WITHOUT CONTRAST CLINICAL INFORMATION: Dizziness. COMPARISON: None available. TECHNIQUE: Contiguous axial imaging was performed from the skull base to vertex without intravenous administration of contrast. This CT examination was performed using dose optimization techniques as appropriate, variously including the following: *Automated exposure control *Adjustment of mA and/or kV according to patient size (this includes techniques or standardized protocols for targeted exams where dose is matched to indication/reason for exam; i.e. extremities or head) *Use of iterative reconstruction technique DLP: 590.45 mGy-cm FINDINGS: There is no evidence of acute intracranial hemorrhage or territorial infarction. No abnormal mass-effect or midline shift is seen. Cartwright to white matter differentiation is well preserved. No extra-axial fluid collections are identified. The ventricles are normal in size. There is no abnormal attenuation within the brain parenchyma. The osseous structures and soft tissues are normal. The mastoid air cells and visualized portions of the paranasal sinuses are well-aerated. CT/CT head/brain wo IV con IMPRESSION: No acute intracranial pathology.
--- NOTE | 2023-08-07 10:19 | ECG_ITS ---
Test Reason : DIZZY Blood Pressure : / mmHG Vent. Rate : 072 BPM Atrial Rate : 072 BPM P-R Int : 172 ms QRS Dur : 072 ms QT Int : 374 ms P-R-T Axes : 059 032 043 degrees QTc Int : 409 ms Normal sinus rhythm Normal ECG When compared with ECG of 25-JUN-2007 09:06, No significant change was found Referred By: Generic ED Physician Electronically Signed By:CLIFTON KAUR MD
[2023-08-07 10:36] LABS: MANUAL DIFF FLAG NO
[2023-08-07 10:38] LABS: Basophils Absolute Auto 0.1 X10*3/uL (0.0-0.2); Basophils Percent Auto 1.2 % (0-2); Eosinophils Absolute Auto 0.1 X10*3/uL (0.0-0.4); Hematocrit 40.6 % (37.0-47.0); Hemoglobin 13.7 g/dl (12.0-16.0); Imm Gran Abs Auto 0.01 X10*3/uL (0.00-0.03); Imm Gran Pct Auto 0.2 % (0.0-0.4); Lymphocytes Absolute Auto 1.6 X10*3/uL (1.2-4.9); Mean Corpuscular HGB Conc 33.7 g/dl (31.0-35.0); Mean Corpuscular Hemoglobin 28.4 pg (27.0-33.0); Mean Corpuscular Volume 84.1 fL (80.0-98.0); Mean Platelet Volume 8.7 fL (9.4-12.3); Monocytes Absolute Auto 0.4 X10*3/uL (0.1-1.2); Monocytes Percent Auto 7.3 % (2-11); Neutrophils Absolute Auto 3.7 x10*3/uL (2.0-8.3); Neutrophils Percent Auto 62.3 % (45-73); Platelet Count 268 X10*3/uL (160-400); Red Blood Count 4.83 X10*6/uL (4.20-5.50); Red Cell Distribution Width 12.9 % (11.0-16.0); White Blood Count 5.9 X10*3/uL (4.8-10.8)
[2023-08-07 10:53] LABS: Alanine Aminotransferase 10 U/L (0-31); Albumin Level 4.1 g/dL (3.5-5.0); Alkaline Phosphatase 79 U/L (39-117); Anion Gap 11 (12-20); Aspartate Amino Transferase 14 U/L (5-31); Bilirubin Total 0.6 mg/dL (0.0-1.0); Blood Urea Nitrogen 9 mg/dL (9-16); Calcium 9.5 mg/dL (8.4-10.2); Carbon Dioxide 27 mmol/L (22-29); Chloride 105 mmol/L (96-108); Creatinine Clr Calc Pharmacy 45.6; Estimated Glomerular Filt Rate > 60; Glucose Random 141 mg/dL (60-115); Potassium 4.4 mmol/L (3.3-5.1); Sodium 139 mmol/L (135-145); Total Protein 6.9 g/dL (6.5-8.0)
--- NOTE | 2023-08-07 13:27 | ED.DIZZY ---
HPI - Dizziness General Chief Complaint: Dizziness Stated Complaint: unbalanced Time Seen by Provider: 08/07/23 11:11 Source: patient, family (Daughter) and crew leader/control room operator Mode of arrival: ambulatory Limitations: no limitations History of Present Illness HPI Narrative: 73-year-old female came in with her daughter for evaluation of unbalanced gait since last night patient has to hold into things to walk straight, feels spacey and unfocused, pressure in the head, otherwise no slurred speech, no weakness, no numbness, no nausea, no vomiting, no fever, no chills Related Data Home Medications Medication Instructions Recorded Confirmed omega-3 fatty acids 1,000 mg 1,000 mg PO DAILY 05/20/20 04/20/22 capsule (Fish Oil Concentrate) Previous Rx's Medication Instructions Recorded blood-glucose meter (OneTouch #1 ea 11/20/21 Ultra2 Meter kit) blood pressure monitor (Blood #1 ea 04/20/22 Pressure Kit) ezetimibe 10 mg tablet (Zetia) 10 mg PO DAILY 30 days #30 tabs 07/30/22 lancets 33 gauge (OneTouch Delica #100 ea 07/30/22 Lancets) blood sugar diagnostic #100 ea 11/03/22 lisinopril 5 mg tablet 5 mg PO DAILY 90 days #90 tabs 05/14/23 rosuvastatin 5 mg tablet 5 mg PO DAILY #30 tabs 05/14/23 Allergies Allergy/AdvReac Type Severity Reaction Status Date / Time pravastatin Allergy Unknown Unknown Verified 08/07/23 09:20 simvastatin Allergy Unknown Unknown Verified 08/07/23 09:20 metformin AdvReac Intermediate Abdominal Verified 08/07/23 09:20 Pain Penicillins AdvReac Weakness Verified 08/07/23 10:19 Review of Systems Review of Systems: All other systems are reviewed and are negative Constitutional: Reports as per HPI and Reports no additional constitutional complaints Eyes: Reports as per HPI and Reports no additional eye complaints Reports system reviewed and no additional complaints, except as documented Cardiovascular: Reports as per HPI and Reports no additional cardiovascular complaints Respiratory: Reports as per HPI and Reports no additional respiratory complaints Gastrointestinal: Reports as per HPI and Reports no additional gastrointestinal complaints Genitourinary: Reports no additional female genitourinary complaints Musculoskeletal: Reports no additional musculoskeletal complaints Skin/Breast: Reports system reviewed and no additional complaints, except as docu Psychiatric: Reports no additional psychiatric complaints Endocrine: Reports no additional endocrine complaints Hematologic/Lymphatic: Reports no additional hematologic/lymphatic complaints Allergic/Immunologic: Reports no additional allergic/immunologic complaints Reports system reviewed and no additional complaints, except as documented and Reports Abnormal speech present [facility] Past Medical History Medical History Anxiety Seizure disorder Vitamin D deficiency Osteopenia Hypercholesterolemia Type 2 diabetes mellitus with hyperglycemia Surgical History History of tubal ligation Family History Family History Father Hypertension Mother Cancer Brother Diabetes Social History Social History Housing: Apartment Alcohol intake: never Patient Tobacco Use Status: Former Tobacco user Tobacco use type: Cigarette Smoked in Last 30 Days: No e-Cigarette/Vaping Use: Never Used Second Hand Smoke Exposure: No Use of substances other than those prescribed or required for medical reasons: No Advance Directives: No Advance Directives Information Provided: No Current occupational status: retired Cognitive needs: No Hearing needs: No Vision needs: Yes Physical Exam Vital Signs: Vital Signs: Last Vital Signs Temp 97.6 F 08/07/23 15:05 Pulse 83 08/07/23 15:05 Resp 18 08/07/23 15:05 BP 130/63 08/07/23 15:05 Pulse Ox 97 08/07/23 15:05 O2 Del Method Room Air 08/07/23 15:05 BMI result Body Mass Index 20.1 Vital signs have been reviewed and appear to be correct. Blood pressure elevated. Heart rate normal. Respiratory rate normal. Temperature normal. Oxygen saturation normal. Appearance: Alert. Oriented X3. No acute distress. Head: Normal external exam. Normocephalic. Atraumatic. No Wiggins signs noted. No raccoon eyes noted Eyes: PERRLA. EOMI. Conjunctiva and sclera normal. Eyelids normal. ENT: TM's Normal. Pharynx normal. Uvula midline. Moist mucous membranes. No trismus noted. No drooling noted. No muffled voice noted. Neck: Normal inspection. Neck supple. FROM. No adenopathy. Thyroid Normal. No meningeal signs. No neck mass noted. CVS: Normal heart rate and rhythm. Heart sound normal. No murmurs noted. Pulses normal throughout. Respiratory: No respiratory distress. Painless inspiration. Breath sounds normal. No wheezes/rales/rhonchi noted. Chest nontender. No accessory muscle usage noted or decreased air movement noted. Abdomen: Soft and nontender. Bowel sounds normal in all 4 quadrants. No distention noted. No organomegaly noted. No visible injury noted. Back: No CVA tenderness. Full range of motion noted. Skin: Skin warm and dry. Normal skin color. Normal skin turgor. No rashes/lesions/lacerations noted. Extremities: No lower extremity edema. Extremities exhibit normal range of motion. Extremities nontender. Neuro: Oriented X 3. Cranial nerve exam: II-XII are grossly intact No motor deficit. No sensory deficit. Reflexes normal. NIH Stroke Scale Internal: Initial- Upon Arrival Level of Consciousness: Alert Level of Consciousness Questions: Answers both questions correctly Level of Consciousness Commands: Performs both tasks correctly Best Gaze: Normal Visual: No visual loss Facial Palsy: Normal Motor Arm (Right): No drift Motor Arm (Left): No drift Motor Leg (Right): No drift Motor Leg (Left): No drift Limb Ataxia: Absent Sensory: Normal Best Language: No aphasia Dysarthia: Normal Extinction and Inattention: No abnormality Score: 0 Course Reevaluation(s) Reevaluation #1: Patient is AAO x4, complaining of unsteadiness and lightheadedness with head pressure, head CT/MRI of the brain was order patient adamantly refuse to get the MRI, I explained to the patient at length 3 using the crew leader/control room operator service in the presence of her daughter in the room that her symptoms can be due to stroke and MRI is an important test to get done today, patient fully understood my instruction and still adamantly refusing the MRI and wanted to go home, patient did not want to wait for the official head CT reading, patient understands that she could have brain stroke that can lead to or major deficit in her body and patient still wanted to leave against medical advice, patient was instructed to return if need medical attention. Time: 13:31 Reevaluation #2: After another conversation at lengthy with the patient and daughter in the waiting room using the crew leader/control room operator service patient agreed to do the MRI after given her a sedative medication, will reschedule MRI. Time: 14:07 Reevaluation #3: Fortunately the MRI was done after sedating the patient, result was discussed with the patient and family, will admit the patient for further neurological consultation. Patient now agreed on the plan. Time: 15:29 Medications Administered Discontinued Medications Generic Name Dose Route Start Last Admin Trade Name Brandonq PRN Reason Stop Dose Admin Lorazepam 2 mg 08/07/23 13:52 08/07/23 14:07 Lorazepam 1 Mg Tablet PO 08/07/23 13:53 2 mg ONCE ONE Administration Medical Decision Making Differential Diagnosis Differential Diagnoses: The differential diagnosis associated with the presentation includes (Ischemic CVA, hemorrhagic CVA, demyelinating disease, electrolyte derangement, severe anemia, UTI.) Admission/Observation Consideration of admission/observation: Escalation of care including admission/observation considered Consult Healthcare Provider Management of the patient was discussed with: Hospitalist (Magda Drake) Lab Data MDM Lab Attestation statement: I reviewed the patient's lab results. 08/07/23 10:31 08/07/23 10:31 Labs: Lab Results 08/07/23 08/07/23 Range/Units 10:31 15:19 WBC 5.9 (4.8-10.8) X10*3/uL RBC 4.83 (4.20-5.50) X10*6/uL Hgb 13.7 (12.0-16.0) g/dl Hct 40.6 (37.0-47.0) % MCV 84.1 (80.0-98.0) fL MCH 28.4 (27.0-33.0) pg MCHC 33.7 (31.0-35.0) g/dl RDW 12.9 (11.0-16.0) % Plt Count 268 (160-400) X10*3/uL MPV 8.7 L (9.4-12.3) fL Immature Gran % (Auto) 0.2 (0.0-0.4) % Neut % (Auto) 62.3 (45-73) % Lymph % (Auto) 27.0 (20-40) % [place] % (Auto) 7.3 (2-11) % Eos % (Auto) 2.0 (0-4) % Baso % (Auto) 1.2 (0-2) % Lymph # (Auto) 1.6 (1.2-4.9) X10*3/uL [place] # (Auto) 0.4 (0.1-1.2) X10*3/uL Eos # (Auto) 0.1 (0.0-0.4) X10*3/uL Baso # (Auto) 0.1 (0.0-0.2) X10*3/uL Abs Immat Gran (auto) 0.01 (0.00-0.03) X10*3/uL Absolute Neuts (auto) 3.7 (2.0-8.3) x10*3/uL Absolute Nucleated RBC 0.000 (0.0-0.012) X10*3/uL Nucleated RBC % (auto) 0.0 (0.0-0.2) /100WBC Sodium 139 (135-145) mmol/L Potassium 4.4 (3.3-5.1) mmol/L Chloride 105 (96-108) mmol/L Carbon Dioxide 27 (22-29) mmol/L Anion Gap 11 L (12-20) BUN 9 (9-16) mg/dL Creatinine 0.85 (0.5-1.4) mg/dL Estim Creat Clear Calc 45.6 Estimated GFR > 60 POC Glucose 108 (60-115) mg/dL Random Glucose 141 H (60-115) mg/dL Calcium 9.5 (8.4-10.2) mg/dL Magnesium 2.0 (1.6-2.6) mg/dL Total Bilirubin 0.6 (0.0-1.0) mg/dL AST 14 (5-31) U/L ALT 10 (0-31) U/L Alkaline Phosphatase 79 (39-117) U/L Total Protein 6.9 (6.5-8.0) g/dL Albumin 4.1 (3.5-5.0) g/dL Independent Interpretation I performed an independent interpretation of an: CT Scan (Head CT: No acute intracranial pathology.) Radiology Impression Discussion of test interpretation with radiology: I have reviewed the radiologist's reading. (No acute intracranial pathology.) Radiologist Impression: MRI of the brain:1. There are a few (less than 5) supratentorial and single infratentorial white matter lesions with imaging findings raising suspicion for underlying demyelinating disease. Consider further evaluation with postcontrast sequences there is concern for acute demyelination and correlation with CSF fluid sampling. 2. No acute infarct. 3. Better appreciated on CT is focal ossification at the right posterolateral foramen magnum interposed between and articulating with dysmorphic and hypertrophic appearing skull base and C1 posterior arch, presumably congenital or posttraumatic in etiology. Ossification/hypertrophic bone projects into the posterior fossa/foramen magnum, causing slight mass effect/uplifting of the inferior right cerebellum and inward displacement of the dura with encroachment upon the right aspect of the cervicomedullary junction. 4. Expanded partially empty sella. 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 Patient Disposition: Admitted As Inpatient Instructions: Dizziness (ED) Prescriptions: No Action (DME) blood-glucose meter [OneecoATMuch Ultra2 Meter] Kit See Rx Instructions .ROUTE .MEDSUPPLY Qty: 1 0RF Rx Instructions: As directed check the blood sugar once a day (DME) blood sugar diagnostic Strip See Rx Instructions .ROUTE .MEDSUPPLY Qty: 100 3RF Rx Instructions: As directed check the blood sugar once a day ONE TOUCH omega-3 fatty acids [Fish Oil Concentrate] 1,000 mg capsule 1,000 mg PO DAILY (DME) lancets [OneTouch Delica Lancets] 33 gauge misc See Rx Instructions .ROUTE .MEDSUPPLY Qty: 100 3RF Rx Instructions: As directed check the blood sugar q.day ezetimibe [Zetia] 10 mg tablet 10 mg PO DAILY 30 Days Qty: 30 3RF (DME) blood pressure monitor [Blood Pressure Kit] Kit See Rx Instructions .ROUTE .MEDSUPPLY Qty: 1 0RF Rx Instructions: As directed lisinopril 5 mg tablet 5 mg PO DAILY 90 Days Qty: 90 3RF rosuvastatin 5 mg tablet 5 mg PO DAILY Qty: 30 4RF Referrals: Po,Lucia Frausto MD [Primary Care Provider] - Stand Alone Forms: Against Medical Advice
[2023-08-07] MEDS: LORazepam 1 MG TABLET 2 MG PO (14:07)
--- NOTE | 2023-08-07 14:11 | PC.NURSE ---
pt seen here earlier today, left due to not wanting to get MRI. pt decided to come back and get MRI. pt medicated with ativan per mar for MRI. pt calm and cooperative, a&o x4. resting quietly on stretcher in no apparent distress. rr even/unlabored. call peguero within reach. plan of care ongoing.
--- NOTE | 2023-08-07 14:19 | PC.NURSE ---
pt to MRI
[2023-08-07 15:26] LABS: Glucose, Whole Blood 108 mg/dL (60-115)
--- NOTE | 2023-08-07 16:19 | PHA.MEDREC ---
Addendum entered by [facility] 08/07/23 18:35: Spoke to daughter Monik, she said that pt hasn't not taken rosuvastatin 5 mg at all due to side effects of upset stomach and weight loss. Information was communicated to Dr. Tavares. Original Note: Pharmacy Consult ? Medication Reconciliation Pharmacy has completed the medication reconciliation. Spoke with patient's family member at bedside to confirm medications. She reports that patient is not very compliant with rosuvastatin.
--- NOTE | 2023-08-07 16:37 | P.HPHOSP_ITS ---
History of Present Illness Date of Service: 08/07/23 Attending physician on admission: [facility] Chief Complaint: dizziness 73-year-old female with history of diet-controlled type 2 diabetes, hyperlipidemia, hx of unspecified seizure disorder not on antiepileptics (seizure free since age 37), anxiety, hypertension, glaucoma, osteopenia presented to the ED earlier today for evaluation of dizziness that started this morning. She reports she woke up and felt unbalanced. Went to pressure teeth and wash her face and still felt dizzy and not quite right. Reports feeling generally unwell. Dizziness persisted so she requested to come to the ED. Her granddaughter, Korina is at bedside who is also an RN. States she noticed her grandmother right pupil was dilated with lateral palsy. The patient denies any vision changes or ocular pain. No fevers, chills, recent illness. Denies any focal weakness, paresthesias. Denies any pain. No urinary or bladder changes. On arrival, VSS. Hematology studies unremarkable. Renal function baseline, electrolyte levels normal. Hepatic function normal. Head CT negative for any acute intracranial abnormality. Patient was administered 2 mg Ativan and underwent MRI of the brain without contrast which showed few supra tentorial and a single infratentorial white matter lesions with imaging findings raising suspicion for underlying demyelinating disease, MRI with contrast in correlation with CSF sampling recommended. No acute infarction. There is also focal ossification at the right posterolateral foramen magnum interposed between and articulating with dysmorphic and hypertrophic appearing skull base and C1 posterior arch, presumably congenital or posttraumatic. There is also ossification/hypertrophic bone projecting into the posterior fossa/foramen magnum causing slight mass effect/uplifting of the right inferior cerebellum and inward displacement of the dura with encroachment upon the right aspect of the cervicomedullary junction. Expanded partially empty sella also noted. Pt to be admitted for further management of active demyelinating disease. Review of Systems 2 Review of Systems: General: No fevers, unintentional weight loss. +malaise HEENT: No blurred vision, diplopia. No sore throat, nasal congestion, rhinorrhea, sinus pain, ear pain Cardiovascular: No chest pain, palpitations, or leg edema Respiratory: No shortness of breath, wheezing, cough GI: No abdominal pain, nausea, vomiting, diarrhea, constipation, melena, hematochezia : No dysuria, hematuria, increased urinary frequency, decreased urinary output, incontinence MSK: No myalgia, back pain Neuro: No headaches, weakness, paresthesias. +dizziness Skin: No rashes or lesions [facility] Medical History Anxiety Seizure disorder Vitamin D deficiency Osteopenia Hypercholesterolemia Type 2 diabetes mellitus with hyperglycemia Family History Father Hypertension Mother Cancer Brother Diabetes Surgical History History of tubal ligation Social History Household Members: Children Household Members Other:: Daughter: Monik Housing: Apartment Do you presently have visiting nurse or other home services: No Alcohol intake: never Patient Tobacco Use Status: Former Tobacco user Tobacco use type: Cigarette Cigarettes Per Day: 1 Years Smoked: 5 Smoked in Last 30 Days: No e-Cigarette/Vaping Use: Never Used Patient Interested in Nicotine Replacement: No Patient Given Instructions on How to Stop Smoking: No Second Hand Smoke Exposure: No Use of substances other than those prescribed or required for medical reasons: No Currently Displaying Signs/Symptoms of Drug Intoxication Withdrawal: No Any prior treatment program specific to substance use: No Have you been hit, kicked, punched, or otherwise hurt by someone within the past year? If so, by whom?: No Do you feel safe in your current relationship?: No Is there a partner from a previous relationship who is making you feel unsafe now?: No Are you made to feel afraid or neglected: No Advance Directives: No Advance Directives Information Provided: No Do you have thoughts of harming others: None Do you have a plan to hurt others: No Plan Recently lost weight without trying: Yes How much weight loss: 2-13 pounds Eating poorly because of decreased appetite: No Nutrition screen score: 3 Nutrition Risks: No Nutritional Risk Patient : No : No Poor oral hygiene: No service: No Current occupational status: retired Cognitive needs: No Hearing needs: No Vision needs: Yes Meds Allergies Allergy/AdvReac Type Severity Reaction Status Date / Time pravastatin Allergy Unknown Unknown Verified 08/07/23 09:20 simvastatin Allergy Unknown Unknown Verified 08/07/23 09:20 metformin AdvReac Intermediate Abdominal Verified 08/07/23 09:20 Pain Penicillins AdvReac Weakness Verified 08/07/23 10:19 Home Medications Medication Instructions Recorded Confirmed Last Taken Type omega-3 fatty acids 1,000 mg 1,000 mg PO DAILY 05/20/20 08/07/23 Unknown History capsule (Fish Oil Concentrate) Physical Exam 2 Vital Signs and Narrative: Vital Signs: Last Vital Signs Temp 97.6 F 08/07/23 15:05 Pulse 83 08/07/23 15:05 Resp 18 08/07/23 15:05 BP 130/63 08/07/23 15:05 Pulse Ox 97 08/07/23 15:05 O2 Del Method Room Air 08/07/23 15:05 BMI result Body Mass Index 20.1 Results Labs 08/08/23 06:26 08/08/23 06:26 Labs: Laboratory Results - last 24 hr 08/07/23 08/07/23 10:31 15:19 MCV 84.1 MCH 28.4 MCHC 33.7 RDW 12.9 Plt Count 268 MPV 8.7 L Immature Gran % (Auto) 0.2 Neut % (Auto) 62.3 Lymph % (Auto) 27.0 [place] % (Auto) 7.3 Eos % (Auto) 2.0 Baso % (Auto) 1.2 Lymph # (Auto) 1.6 [place] # (Auto) 0.4 Eos # (Auto) 0.1 Baso # (Auto) 0.1 Abs Immat Gran (auto) 0.01 Absolute Neuts (auto) 3.7 Absolute Nucleated RBC 0.000 Nucleated RBC % (auto) 0.0 Anion Gap 11 L Estim Creat Clear Calc 45.6 Estimated GFR > 60 POC Glucose 108 Random Glucose 141 H Calcium 9.5 Magnesium 2.0 Total Bilirubin 0.6 AST 14 ALT 10 Alkaline Phosphatase 79 Total Protein 6.9 Albumin 4.1 Imaging Radiologist's Impressions: Impressions Head CT 08/07/23 12:25 IMPRESSION: No acute intracranial pathology. Brain MRI 08/07/23 14:47 IMPRESSION: 1. There are a few (less than 5) supratentorial and single infratentorial white matter lesions with imaging findings raising suspicion for underlying demyelinating disease. Consider further evaluation with postcontrast sequences there is concern for acute demyelination and correlation with CSF fluid sampling. 2. No acute infarct. 3. Better appreciated on CT is focal ossification at the right posterolateral foramen magnum interposed between and articulating with dysmorphic and hypertrophic appearing skull base and C1 posterior arch, presumably congenital or posttraumatic in etiology. Ossification/hypertrophic bone projects into the posterior fossa/foramen magnum, causing slight mass effect/uplifting of the inferior right cerebellum and inward displacement of the dura with encroachment upon the right aspect of the cervicomedullary junction. 4. Expanded partially empty sella. 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 #Active demyelinating disease -MRI of the brain without contrast which showed few supra tentorial and a single infratentorial white matter lesions with imaging findings raising suspicion for underlying demyelinating disease -MR brain w/ contrast ordered for further characterization -LP ordered- should be added on 08/08. Hold heparin night before and keep NPO prior -Check CSF glucose, total protein, oligocloncal bands -1g IV Solu-Medrol x3 days -neurology consult #Ossification/hypertrophy skull base- unclear significance -focal ossification at the right posterolateral foramen magnum interposed between and articulating with dysmorphic and hypertrophic appearing skull base and C1 posterior arch, presumably congenital or posttraumatic. There is also ossification/hypertrophic bone projecting into the posterior fossa/foramen magnum causing slight mass effect/uplifting of the right inferior cerebellum and inward displacement of the dura with encroachment upon the right aspect of the cervicomedullary junction. Expanded partially empty sella also noted -neurology consult # [id number] type 2 diabetes without hyperglycemia -POC glucose, diabetic diet -Humalog on sliding scale # HLD -statin # history of seizure disorder, unspecified -last seizure H 37, no longer on antiepileptics DVT prophylaxis-heparin DNR/DNI Patient requires inpatient stay at least 2 midnights for management of active demyelinating disease on pulse dose steroids requiring further investigation with MRI and lumbar puncture as well as expert consultation Quality Stroke Does the patient have a stroke diagnosis?: No VTE Prior VTE?: No VTE Risk Level:: Medical - moderate - high VTE Device Contraindication: Treatment Not Indicated VTE Drug Contraindication: N/A - Med Ordered
[2023-08-07] MEDS: Heparin Sodium,Porcine 5,000 UNIT/ML VIAL 5000 UNIT SUBCUT (18:05)
[2023-08-07] MEDS: methylPREDNISolone Sod Succ 1,000 MG in 0.9 % Sodium Chloride 50 ML 66 MG IV (18:43)
--- NOTE | 2023-08-07 18:51 | PC.NURSE ---
20G IV placed to RAC. pt medicated per jul. rr even/unlabored. inpatient report complete. awaiting transport to room.
[2023-08-07 20:45] LABS: Glucose, Whole Blood 278 mg/dL (60-115)
[2023-08-07] MEDS: Insulin Lispro 100 UNIT/ML 3 ML VIAL SUBCUT (22:01)
[2023-08-07] MEDS: 0.9 % Sodium Chloride Flush 3 ML SYRINGE IVFLUSH (22:02)
[2023-08-08 02:29] VITALS: BMI 20.6
[2023-08-08 04:00] VITALS: BP 97/55; PULSE 74; RESP 20; TEMP 36.4; O2SAT 96
[2023-08-08] MEDS: Heparin Sodium,Porcine 5,000 UNIT/ML VIAL 5000 UNIT SUBCUT (04:32)
[2023-08-08 06:47] LABS: MANUAL DIFF FLAG NO
[2023-08-08 07:04] LABS: Basophils Percent Auto 0.2 % (0-2); Hematocrit 39.9 % (37.0-47.0); Hemoglobin 13.4 g/dl (12.0-16.0); Imm Gran Abs Auto 0.03 X10*3/uL (0.00-0.03); Imm Gran Pct Auto 0.5 % (0.0-0.4); Lymphocytes Absolute Auto 0.7 X10*3/uL (1.2-4.9); Lymphocytes Percent Auto 12.1 % (20-40); Mean Corpuscular HGB Conc 33.6 g/dl (31.0-35.0); Mean Corpuscular Hemoglobin 28.2 pg (27.0-33.0); Mean Corpuscular Volume 83.8 fL (80.0-98.0); Mean Platelet Volume 9.7 fL (9.4-12.3); Monocytes Absolute Auto 0.1 X10*3/uL (0.1-1.2); Neutrophils Absolute Auto 5.3 x10*3/uL (2.0-8.3); Neutrophils Percent Auto 86.2 % (45-73); Platelet Count 271 X10*3/uL (160-400); Red Blood Count 4.76 X10*6/uL (4.20-5.50); Red Cell Distribution Width 12.8 % (11.0-16.0); White Blood Count 6.1 X10*3/uL (4.8-10.8)
[2023-08-08 07:12] LABS: Anion Gap 11 (12-20); Blood Urea Nitrogen 18 mg/dL (9-16); Carbon Dioxide 23 mmol/L (22-29); Chloride 106 mmol/L (96-108); Creatinine Clr Calc Pharmacy 34.9; Estimated Glomerular Filt Rate 48; Glucose Random 332 mg/dL (60-115); Potassium 4.3 mmol/L (3.3-5.1); Sodium 136 mmol/L (135-145)
[2023-08-08 07:30] VITALS: BP 112/58; PULSE 70; RESP 20; TEMP 36.4; O2SAT 99
[2023-08-08 07:32] LABS: Glucose, Whole Blood 259 mg/dL (60-115)
[2023-08-08 08:15] LABS: Estimated Average Glucose 126 mg/dL
[2023-08-08 08:33] LABS: INTERNATIONAL NORM RATIO 0.9 (0.9-1.1); Prothrombin Time 10.8 SEC (11.1-13.3)
--- NOTE | 2023-08-08 08:56 | MHC.CM.PN ---
IMM 08/08/23, CM MET W/PT AND DTR JESSE AT BEDSIDE, PT REPORTS SHE LIVES W/JESSE, IS FULLY INDEP W/ALL CARE, DENIES USE OF DME OTHER THAN DIABETIC SUPPLIES AND HAS A [facility] NURSE CM THAT VISITS Q6MOS OR Q12MOS, PT AND DTR NOT SURE WHICH, PT IS OPEN TO [facility] SERVICES AND GOAL FOR DC IS HOME. PT VERIFIES PCP IS LIAM EDWARDS AND PT EDUCTAED ON AND COMPLETED A HCP NAMING HER DTR JESSE MARTIN [phone] AND HER GDTR ANGUS PRIMO [phone] HER ALTERNATE, PT PROVIDED W/EDUCATIONAL HANDOUT IN IRISH, ORIGINAL AND 2 COPIES, COPY UPLOADED TO [facility] AND PLACED IN PHYSICAL CHART.
[2023-08-08] MEDS: Insulin Lispro 100 UNIT/ML 3 ML VIAL SUBCUT ×4 (09:03→21:12)
[2023-08-08] MEDS: lisinopriL 5 MG TABLET PO (09:03)
[2023-08-08] MEDS: methylPREDNISolone Sod Succ 1,000 MG in 0.9 % Sodium Chloride 50 ML 66 MG IV (09:04)
[2023-08-08] MEDS: 0.9 % Sodium Chloride Flush 3 ML SYRINGE IVFLUSH ×2 (09:09→21:13)
[2023-08-08] MEDS: LORazepam 1 MG TABLET PO (09:41)
--- NOTE | 2023-08-08 09:59 | P.DS_ITS ---
DS: Providers Provider Date of Service: 08/09/23 Date of admission: 08/07/23 16:24 Primary care physician: Lucia Curry MD Consults: 08/07/23 16:29 Consult to Neurology Routine Consulting Provider: [facility] Reason for consultation: acute demyelinating disease DS: Diagnosis Discharge Diagnosis (1) GUARD CAPTAIN demyelination: Status: Acute (2) Dizziness: Status: Acute DS: Summary Hospital Course Hospital Course: admission hpi Chief Complaint: dizziness 73-year-old female with history of diet-controlled type 2 diabetes, hyperlipidemia, hx of unspecified seizure disorder not on antiepileptics (seizure free since age 37), anxiety, hypertension, glaucoma, osteopenia presented to the ED earlier today for evaluation of dizziness that started this morning. She reports she woke up and felt unbalanced. Went to pressure teeth and wash her face and still felt dizzy and not quite right. Reports feeling generally unwell. Dizziness persisted so she requested to come to the ED. Her granddaughter, Korina is at bedside who is also an RN. States she noticed her grandmother right pupil was dilated with lateral palsy. The patient denies any vision changes or ocular pain. No fevers, chills, recent illness. Denies any focal weakness, paresthesias. Denies any pain. No urinary or bladder changes. On arrival, VSS. Hematology studies unremarkable. Renal function baseline, electrolyte levels normal. Hepatic function normal. Head CT negative for any acute intracranial abnormality. Patient was administered 2 mg Ativan and un derwent MRI of the brain without contrast which showed few supra tentorial and a single infratentorial white matter lesions with imaging findings raising suspicion for underlying demyelinating disease, MRI with contrast in correlation with CSF sampling recommended. No acute infarction. There is also focal ossification at the right posterolateral foramen magnum interposed between and articulating with dysmorphic and hypertrophic appearing skull base and C1 posterior arch, presumably congenital or posttraumatic. There is also ossification/hypertrophic bone projecting into the posterior fossa/foramen magnum causing slight mass effect/uplifting of the right inferior cerebellum and inward displacement of the dura with encroachment upon the right aspect of the cervicomedullary junction. Expanded partially empty sella also noted. Pt to be admitted for further management of active demyelinating disease. Hospital course: 73-year-old female with history of diet-controlled type 2 diabetes, hyperlipidemia, hx of unspecified seizure disorder not on antiepileptics (seizure free since age 37), anxiety, hypertension, glaucoma, osteopenia who presented with Dizziness and CT showing no acute finding, MRI raising concern for demylinating diseas. MRI with contrast ....Her symptoms are better after IV solumedrol per neurology recommendation. She is ambulating without assistance. Neurology saw her and recommended LP which is done. Neurology further recommends Cervical spine MRI..MRI may not get to it today and daughter prefers getting it done on outpatient basis and to follow up with Neurologist # [id number]-[id number] type 2 diabetes without hyperglycemia -resume home medicaon # HLD -statin # history of seizure disorder, unspecified -last seizure H 37, no longer on antiepileptics Time Attestation Discharge Coordination Time (in mins): 35 Quality: Safe Use of Opioids Does Pt have an Active Cancer Diagnosis on the Problem List?: No Quality: Stroke Does the patient have a stroke diagnosis?: No Physical Exam Vital Signs: Vital Signs: Selected Entries 08/09/23 12:00 Temperature 98.0 F Pulse Rate 70 Respiratory Rate 20 Blood Pressure 116/53 L Pulse Oximetry 98 Oxygen Delivery Me thod Room Air General: AO X 3, no acute distress Resp: CTA bilateral CVS: S1,S2,RRR GI: +BS, NT, no distention Skin: No rash Neuro: motor grossly intact Psych: appropriate affect DS: Data Data Completed and Pending Labs on day of discharge: Laboratory Results - last 24 hr 08/07/23 08/07/23 08/07/23 10:31 15:19 20:39 WBC 5.9 RBC 4.83 Hgb 13.7 Hct 40.6 MCV 84.1 MCH 28.4 MCHC 33.7 RDW 12.9 Plt Count 268 MPV 8.7 L Immature Gran % (Auto) 0.2 Neut % (Auto) 62.3 Lymph % (Auto) 27.0 Rutherford % (Auto) 7.3 Eos % (Auto) 2.0 Baso % (Auto) 1.2 Lymph # (Auto) 1.6 Rutherford # (Auto) 0.4 Eos # (Auto) 0.1 Baso # (Auto) 0.1 Abs Immat Gran (auto) 0.01 Absolute Neuts (auto) 3.7 Absolute Nucleated RBC 0.000 Nucleated RBC % (auto) 0.0 PT INR Sodium 139 Potassium 4.4 Chloride 105 Carbon Dioxide 27 Anion Gap 11 L BUN 9 Creatinine 0.85 Estim Creat Clear Calc 45.6 Estimated GFR > 60 POC Glucose 108 278 H Random Glucose 141 H Estimat Average Glucose Hemoglobin A1c % Calcium 9.5 Magnesium 2.0 Total Bilirubin 0.6 AST 14 ALT 10 Alkaline Phosphatase 79 Total Protein 6.9 Albumin 4.1 08/08/23 08/08/23 08/08/23 06:26 07:25 08:00 WBC 6.1 RBC 4.76 Hgb 13.4 Hct 39.9 MCV 83.8 MCH 28.2 MCHC 33.6 RDW 12.8 Plt Count 271 MPV 9.7 Immature Gran % (Auto) 0.5 H Neut % (Auto) 86.2 H Lymph % (Auto) 12.1 L Rutherford % (Auto) 1.0 L Eos % (Auto) 0.0 Baso % (Auto) 0.2 Lymph # (Auto) 0.7 L Rutherford # (Auto) 0.1 Eos # (Auto) 0.0 Baso # (Auto) 0.0 Abs Immat Gran (auto) 0.03 Absolute Neuts (auto) 5.3 Absolute Nucleated RBC 0.000 Nucleated RBC % (auto) 0.0 PT 10.8 L INR 0.9 Sodium 136 Potassium 4.3 Chloride 106 Carbon Dioxide 23 Anion Gap 11 L BUN 18 H Creatinine 1.12 Estim Creat Clear Calc 34.9 Estimated GFR 48 POC Glucose 259 H Random Glucose 332 H Estimat Average Glucose 126 Hemoglobin A1c % 6.0 Calcium 9.0 Magnesium Total Bilirubin AST ALT Alkaline Phosphatase Total Protein Albumin Discharge Plan Discharge Anticipated Discharge Date/Time: 08/09/23 12:52 Patient Disposition: Home, Self-Care Discharge Diagnosis: Dizziness, dimyelenation on CT Referrals: Monica Varghese MD [Physician] - 1 Week Po,Lucia Frausto MD [Primary Care Provider] - Discharge Medications: Continued (DME) blood-glucose meter [OneTouch Ultra2 Meter] Kit See Rx Instructions .ROUTE .MEDSUPPLY Qty: 1 0RF Rx Instructions: As directed check the blood sugar once a day (DME) blood sugar diagnostic Strip See Rx Instructions .ROUTE .MEDSUPPLY Qty: 100 3RF Rx Instructions: As directed check the blood sugar once a day ONE TOUCH omega-3 fatty acids [Fish Oil Concentrate] 1,000 mg capsule 1,000 mg PO DAILY (DME) lancets [OneTouch Delica Lancets] 33 gauge misc See Rx Instructions .ROUTE .MEDSUPPLY Qty: 100 3RF Rx Instructions: As directed check the blood sugar q.day (DME) blood pressure monitor [Blood Pressure Kit] Kit See Rx Instructions .ROUTE .MEDSUPPLY Qty: 1 0RF Rx Instructions: As directed lisinopril 5 mg tablet 5 mg PO DAILY 90 Days Qty: 90 3RF rosuvastatin 5 mg tablet 5 mg PO DAILY Qty: 30 4RF Discharge Orders: Discharge Order (Routine); Ordered 08/09/23 Ordered By: Narayan Tavares Diet: Advance to usual diet Activity on Discharge: As tolerated Stand Alone Forms: Patient Portal Discharge page, Against Medical Advice Other Ambulatory Orders: MR cervical spine w con (Routine) Timeframe: 1 Week Facility: [facility] - Location: MRI Ordered By: Narayan Tavares Care Plan Goals: Full work up for demyelination disease, dizziness Health Concerns: Demyelination disease Plan of Treatment: You will have an outpatient MRI done for your cervical spine, and then he will follow-up with Dr. Varghese, the neurologist for resolved and further treatment plan.. Also follow up with your primary care doctor within a week call for appointment. Assessment: see above Patient Instructions: Dizziness (ED)
[2023-08-08] MEDS: gadobutroL 7.5 ML VIAL IVPUSH (10:56)
[2023-08-08 11:15] LABS: Glucose, Whole Blood 277 mg/dL (60-115)
[2023-08-08 11:20] VITALS: BP 123/62; PULSE 91; RESP 20; TEMP 36.6; O2SAT 99
--- NOTE | 2023-08-08 13:04 | PM.NEUROCN ---
History of Present Illness Data of Consult Service Date: 08/08/23 Primary Care Provider: Lucia Curry MD [facility] Reason for consult: Dizziness 73 years old woman with underlying history of diabetes remote history of seizure disorder and anxiety disorder came to hospital with dizziness. When I saw her she was asymptomatic reporting that there was no complaint. Her imaging has revealed abnormalities prompting this consultation. There was no history of any recent cold or flu-like illness or trauma. Other than remote history of seizure disorder, she was not known to have any neurological problem. There was no pertinent family history. Review of Systems Review of Systems: No recent cold or flu-like illness PMFSH Past Medical History Medical History Anxiety Seizure disorder Vitamin D deficiency Osteopenia Hypercholesterolemia Type 2 diabetes mellitus with hyperglycemia Family History Family History Father Hypertension Mother Cancer Brother Diabetes Surgical History Surgical History History of tubal ligation Social History Social History Household Members: Children Household Members Other:: Daughter: Monik Housing: Apartment Do you presently have visiting nurse or other home services: No Alcohol intake: never Patient Tobacco Use Status: Former Tobacco user Tobacco use type: Cigarette Cigarettes Per Day: 1 Years Smoked: 5 Smoked in Last 30 Days: No e-Cigarette/Vaping Use: Never Used Patient Interested in Nicotine Replacement: No Patient Given Instructions on How to Stop Smoking: No Second Hand Smoke Exposure: No Use of substances other than those prescribed or required for medical reasons: No Currently Displaying Signs/Symptoms of Drug Intoxication Withdrawal: No Any prior treatment program specific to substance use: No Have you been hit, kicked, punched, or otherwise hurt by someone within the past year? If so, by whom?: No Do you feel safe in your current relationship?: No Is there a partner from a previous relationship who is making you feel unsafe now?: No Are you made to feel afraid or neglected: No Advance Directives: No Advance Directives Information Provided: No Do you have thoughts of harming others: None Do you have a plan to hurt others: No Plan Recently lost weight without trying: Yes How much weight loss: 2-13 pounds Eating poorly because of decreased appetite: No Nutrition screen score: 3 Nutrition Risks: No Nutritional Risk Patient : No : No Poor oral hygiene: No service: No Current occupational status: retired Cognitive needs: No Hearing needs: No Vision needs: Yes Meds Allergies Allergy/AdvReac Type Severity Reaction Status Date / Time pravastatin Allergy Unknown Unknown Verified 08/07/23 09:20 simvastatin Allergy Unknown Unknown Verified 08/07/23 09:20 metformin AdvReac Intermediate Abdominal Verified 08/07/23 09:20 Pain Penicillins AdvReac Weakness Verified 08/07/23 10:19 Active Medications: Current Medications Acetaminophen (Acetaminophen 325 Mg Tablet) 650 mg PO Q6H PRN PRN Reason: Pain, Mild (Pain Scale 1-3) Dextrose (Dextrose 50 % 25 Gm/50 Ml Syringe) 25 gm IVPUSH Q15M PRN; Protocol PRN Reason: per Hypoglycemia Standing Ord. Glucose (Glucose Gel 15 Gm Gel..Gram.) 15 gm PO Q15M PRN; Protocol PRN Reason: per Hypoglycemia Standing Ord. Heparin Sodium (Porcine) (Heparin Sodium,Porcine 5,000 Unit/Ml Vial) 5,000 unit SUBCUT Q12H [facility] Last Admin: 08/08/23 04:32 Dose: 5,000 unit Methylprednisolone Sodium Succinate 1,000 mg/ Sodium Chloride 66 mls @ 66 mls/hr IV DAILY [facility] Stop: 08/09/23 09:59 Last Infusion: 08/08/23 10:14 Dose: Infused Insulin Human Lispro (Insulin Lispro 100 Unit/Ml 3 Ml Vial) 0 unit SUBCUT QIDACHS [facility]; Protocol Last Admin: 08/08/23 12:27 Dose: 6 unit Lisinopril (Lisinopril 5 Mg Tablet) 5 mg PO DAILY [facility]; Protocol Last Admin: 08/08/23 09:03 Dose: 5 mg Ondansetron HCl (Ondansetron Hcl 4 Mg/2 Ml Vial) 4 mg IVPUSH Q8H PRN PRN Reason: Nausea and Vomiting Senna (Sennosides 8.6 Mg Tablet) 17.2 mg PO BEDTIME PRN PRN Reason: Constipation Sodium Chloride (0.9 % Sodium Chloride Flush 3 Ml Syringe) 3 ml IVFLUSH QSHIFT [facility] Last Admin: 08/08/23 09:09 Dose: 3 ml Home Medications Medication Instructions Recorded Confirmed Last Taken Type omega-3 fatty acids 1,000 mg 1,000 mg PO DAILY 05/20/20 08/07/23 Unknown History capsule (Fish Oil Concentrate) Physical Exam Vital Signs: Vital Signs: Last Vital Signs Temp 97.9 F 08/08/23 11:20 Pulse 91 08/08/23 11:20 Resp 20 08/08/23 11:20 BP 123/62 08/08/23 11:20 Pulse Ox 99 08/08/23 11:20 O2 Del Method Room Air 08/08/23 11:20 BMI result Body Mass Index 20.6 Neuro: Other: She is alert and awake with normal spontaneity of speech fluency comprehension and affect. Face is symmetrical. Visual [place] are full. Pupils are round reactive. Itmjnr-[id number] testing is normal. Deep tendon reflexes are trace to 1+ with flexor plantars. There is slight limitation of gaze with rightward gaze. Results Labs 08/08/23 06:26 08/08/23 06:26 Labs: Short CBC 08/08/23 Range/Units 06:26 WBC 6.1 (4.8-10.8) X10*3/uL Hgb 13.4 (12.0-16.0) g/dl Hct 39.9 (37.0-47.0) % Plt Count 271 (160-400) X10*3/uL BMP 08/08/23 06:26 Sodium 136 Potassium 4.3 Chloride 106 Carbon Dioxide 23 BUN 18 H Creatinine 1.12 Calcium 9.0 Her CTA of brain MRI of brain with and without contrast were reviewed. There were couple of chronic lesions and then a tiny area of pontine hyperintensity on FLAIR and with contrast suggestive of possible demyelinating lesion. 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 My recommendation at this time is to treat her with Solu-Medrol for 3 days, obtain MRI of cervical and thoracic spine, obtain lumbar puncture to check for CSF glucose protein cells differential and oligoclonal bands, and also complete routine cancer screening. Procedures Date of Service Date of Service: 08/08/23
--- NOTE | 2023-08-08 14:07 | HO.PM.IMPN ---
Subjective Subjective Date of Service: 08/09/23 Interval History: Patient symptoms are better with IV steroid, less dizziness and balance is better Physical Exam Vital Signs: Vital Signs: Last Vital Signs Temp 97.9 F 08/08/23 11:20 Pulse 91 08/08/23 11:20 Resp 20 08/08/23 11:20 BP 123/62 08/08/23 11:20 Pulse Ox 99 08/08/23 11:20 O2 Del Method Room Air 08/08/23 11:20 BMI result Body Mass Index 20.6 General: AO X 3, no acute distress Resp: CTA bilateral CVS: S1,S2,RRR GI: +BS, NT, no distention Skin: No rash Neuro: motor grossly intact Psych: appropriate affect Objective Data Active Medications Acetaminophen (Acetaminophen 325 Mg Tablet) 650 mg PO Q6H PRN PRN Reason: Pain, Mild (Pain Scale 1-3) Dextrose (Dextrose 50 % 25 Gm/50 Ml Syringe) 25 gm IVPUSH Q15M PRN; Protocol PRN Reason: per Hypoglycemia Standing Ord. Glucose (Glucose Gel 15 Gm Gel..Gram.) 15 gm PO Q15M PRN; Protocol PRN Reason: per Hypoglycemia Standing Ord. Heparin Sodium (Porcine) (Heparin Sodium,Porcine 5,000 Unit/Ml Vial) 5,000 unit SUBCUT Q12H [facility] Last Admin: 08/08/23 04:32 Dose: 5,000 unit Documented By: JANINE Methylprednisolone Sodium Succinate 1,000 mg/ Sodium Chloride 66 mls @ 66 mls/hr IV DAILY [facility] Stop: 08/09/23 09:59 Last Infusion: 08/08/23 10:14 Dose: Infused Documented By: ADAM Insulin Human Lispro (Insulin Lispro 100 Unit/Ml 3 Ml Vial) 0 unit SUBCUT QIDACHS [facility]; Protocol Last Admin: 08/08/23 12:27 Dose: 6 unit Documented By: ADAM Lisinopril (Lisinopril 5 Mg Tablet) 5 mg PO DAILY [facility]; Protocol Last Admin: 08/08/23 09:03 Dose: 5 mg Documented By: ADAM Ondansetron HCl (Ondansetron Hcl 4 Mg/2 Ml Vial) 4 mg IVPUSH Q8H PRN PRN Reason: Nausea and Vomiting Senna (Sennosides 8.6 Mg Tablet) 17.2 mg PO BEDTIME PRN PRN Reason: Constipation Sodium Chloride (0.9 % Sodium Chloride Flush 3 Ml Syringe) 3 ml IVFLUSH QSHIFT [facility] Last Admin: 08/08/23 09:09 Dose: 3 ml Documented By: ADAM Labs 08/08/23 06:26 08/08/23 06:26 Labs: Laboratory Results - last 24 hr 08/07/23 08/07/23 08/08/23 15:19 20:39 06:26 MCV 83.8 MCH 28.2 MCHC 33.6 RDW 12.8 Plt Count 271 MPV 9.7 Immature Gran % (Auto) 0.5 H Neut % (Auto) 86.2 H Lymph % (Auto) 12.1 L Call[place] % (Auto) 1.0 L Eos % (Auto) 0.0 Baso % (Auto) 0.2 Lymph # (Auto) 0.7 L [place] # (Auto) 0.1 Eos # (Auto) 0.0 Baso # (Auto) 0.0 Abs Immat Gran (auto) 0.03 Absolute Neuts (auto) 5.3 Absolute Nucleated RBC 0.000 Nucleated RBC % (auto) 0.0 PT INR Anion Gap 11 L Estim Creat Clear Calc 34.9 Estimated GFR 48 POC Glucose 108 278 H Random Glucose 332 H Estimat Average Glucose 126 Hemoglobin A1c % 6.0 Calcium 9.0 08/08/23 08/08/23 08/08/23 07:25 08:00 11:12 MCV MCH MCHC RDW Plt Count MPV Immature Gran % (Auto) Neut % (Auto) Lymph % (Auto) Call[place] % (Auto) Eos % (Auto) Baso % (Auto) Lymph # (Auto) [place] # (Auto) Eos # (Auto) Baso # (Auto) Abs Immat Gran (auto) Absolute Neuts (auto) Absolute Nucleated RBC Nucleated RBC % (auto) PT 10.8 L INR 0.9 Anion Gap Estim Creat Clear Calc Estimated GFR POC Glucose 259 H 277 H Random Glucose Estimat Average Glucose Hemoglobin A1c % Calcium Assessment and Plan (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 #Active demyelinating disease -MRI of the brain without contrast which showed few supra tentorial and a single infratentorial white matter lesions with imaging findings raising suspicion for underlying demyelinating disease -MR brain w/ confirms finding -Neuro recommends IV solumedrol 1gm daily x 3 days, -LP ordered- for further diagnois -Check CSF glucose, total protein, oligocloncal bands -Neurology recommend additional MRI #Ossification/hypertrophy skull base- unclear significance -focal ossification at the right posterolateral foramen magnum interposed between and articulating with dysmorphic and hypertrophic appearing skull base and C1 posterior arch, presumably congenital or posttraumatic. There is also ossification/hypertrophic bone projecting into the posterior fossa/foramen magnum causing slight mass effect/uplifting of the right inferior cerebellum and inward displacement of the dura with encroachment upon the right aspect of the cervicomedullary junction. Expanded partially empty sella also noted-neurology consult # [id number] type 2 diabetes with hyperglycemia d/t steroid -close monitoring of sugar if not controlled, add Lantus -POC glucose, diabetic diet -Humalog on sliding scale # HLD -statin # history of seizure disorder, unspecified -last seizure H 37, no longer on antiepileptics DVT prophylaxis-heparin DNR/DNI Patient requires inpatient stay at least 2 midnights for management of active demyelinating disease on pulse dose steroids requiring further investigation with MRI and lumbar puncture as well as expert consultation Quality Stroke Does the patient have a stroke diagnosis?: No VTE Prior VTE?: No VTE Risk Level:: Medical - moderate - high VTE Device Contraindication: Treatment Not Indicated VTE Drug Contraindication: N/A - Med Ordered
[2023-08-08 15:59] VITALS: BP 117/54; PULSE 90; RESP 20; TEMP 36.7; O2SAT 98
[2023-08-08 16:24] LABS: Glucose, Whole Blood 282 mg/dL (60-115)
[2023-08-08 19:08] VITALS: BP 118/59; PULSE 88; RESP 20; TEMP 36.5; O2SAT 97
[2023-08-08 19:58] LABS: Glucose, Whole Blood 231 mg/dL (60-115)
[2023-08-08 23:45] VITALS: BP 108/55; PULSE 86; RESP 18; TEMP 36.8; O2SAT 96
[2023-08-09 03:54] VITALS: BP 111/56; PULSE 70; RESP 18; TEMP 36.6; O2SAT 96
[2023-08-09 06:56] LABS: Glucose, Whole Blood 147 mg/dL (60-115)
[2023-08-09 07:04] VITALS: BP 106/57; PULSE 75; RESP 18; TEMP 36.6; O2SAT 99
[2023-08-09] MEDS: methylPREDNISolone Sod Succ 1,000 MG in 0.9 % Sodium Chloride 50 ML 66 MG IV (08:15)
[2023-08-09] MEDS: lisinopriL 5 MG TABLET PO (08:15)
[2023-08-09] MEDS: 0.9 % Sodium Chloride Flush 3 ML SYRINGE IVFLUSH (08:16)
--- NOTE | 2023-08-09 11:41 | PM.EVENT ---
Event Note Date of Service: 08/09/23 Event Note: Procedure Note: Lumbar puncture Indication: demyelenating disease L4-5, 8 cc clear csf removed and sent for requested studies. No immediate comlications Kenneth LUZ Interventional Radiology Time Spent With Patient Time: Total time managing care of this patient today ____ minutes.
[2023-08-09 12:00] VITALS: BP 116/53; PULSE 70; RESP 20; TEMP 36.7; O2SAT 98
[2023-08-09 12:10] LABS: Glucose, Whole Blood 201 mg/dL (60-115)
[2023-08-09 12:16] LABS: CSF Appearance Clear, Colorless; CSF Tube # 1
[2023-08-09 12:19] LABS: Glucose CSF 102 mg/dL; Total Protein CSF 39.6 mg/dL (15-45)
[2023-08-09] MEDS: Insulin Lispro 100 UNIT/ML 3 ML VIAL SUBCUT (13:21)
[2023-08-09 15:12] LABS: Oligoclonal Serum Yes
[2023-08-09 15:41] VITALS: BP 124/98; PULSE 97; RESP 20; TEMP 37.1; O2SAT 97
[2023-08-09 16:18] LABS: Glucose, Whole Blood 316 mg/dL (60-115)
[2023-08-14 17:53] LABS: Oligoclonal Banding Absent (Absent)
== END 2023-08-09 16:41 | disposition home or self-care (01) | DRG 60 ==
LOC: HO.ED 15:34 → HO.EDOVER 16:58 → HO.IMC 17:59
PROVIDERS: Admitting Provider Physician Assistant; Emergency Provider Emergency Medicine; PCP Internal Medicine; Visit Provider Internal Medicine
DX: G37.9 Demyelinating disease of central nervous system, unspecified (principal); E78.5 Hyperlipidemia, unspecified; Z66 Do not resuscitate; E11.65 Type 2 diabetes mellitus with hyperglycemia; G40.909 Epilepsy, unspecified, not intractable, without status epilepticus; Z87.891 Personal history of nicotine dependence; Z79.899 Other long term (current) drug therapy
CPT/HCPCS: 36415; 62328; 70450; 70551; 70552; 80048; 80053; 82945; 82947; 83036; 83735; 83916; 84157; 85025; 85610; 93005; 99285; A9585; J1644; J2930

== ENCOUNTER → 2023-08-07 10:19 | Outpatient (BNV) | payer OTHER, SELFPAY | PROVIDERS: Admitting Provider Physician Assistant; Emergency Provider Emergency Medicine; PCP Internal Medicine; Visit Provider Internal Medicine Cardiovascular Disease | DX: R42 Dizziness and giddiness (principal) | CPT/HCPCS: 93010 ==

== ENCOUNTER 2023-08-07 16:24 | Outpatient (BNV) | payer OTHER, SELFPAY | END 2023-08-09 11:00 | PROVIDERS: Admitting Provider Physician Assistant; Emergency Provider Emergency Medicine; PCP Internal Medicine; Visit Provider Physician Assistant Surgical | DX: G37.9 Demyelinating disease of central nervous system, unspecified (principal) | CPT/HCPCS: 62328 ==

== ENCOUNTER → 2023-08-07 16:24 | Outpatient (BNV) | payer OTHER, SELFPAY | PROVIDERS: Admitting Provider Physician Assistant; Emergency Provider Emergency Medicine; PCP Internal Medicine; Visit Provider Psychiatry & Neurology Neurology | DX: G37.9 Demyelinating disease of central nervous system, unspecified (principal) | CPT/HCPCS: 99223 ==

== ENCOUNTER → 2023-08-07 16:24 | Outpatient (BNV) | payer OTHER, SELFPAY | PROVIDERS: Admitting Provider Physician Assistant; Emergency Provider Emergency Medicine; PCP Internal Medicine; Visit Provider Physician Assistant | DX: G37.9 Demyelinating disease of central nervous system, unspecified (principal); R42 Dizziness and giddiness | CPT/HCPCS: 99223; 99232; 99239 ==

== ENCOUNTER 2023-08-17 15:43 | Outpatient (AMB) | payer OTHER, SELFPAY ==
[2023-08-17 15:45] VITALS: BP 130/68; PULSE 83; O2SAT 98; BMI 19.6
--- NOTE | 2023-08-17 15:45 | MHC.PC.OV ---
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 Patient is up-to-date with mammogram declined colonoscopy up-to-date with bone density. Review of the notes in July 2023 patient was in the emergency room for dizziness ER visit noted right pupil dilated with lateral palsy patient underwent MRI showing few supratentorial and a single infratentorial white matter lesions with image findings raising suspicion for demyelinating disease also noted hypertrophic bone projecting due to the posterior fossa/foramen magnum causing slight mass effect up lifting of the right inferior cerebellum and inward displacement of the dura with encroachment upon the right aspect of the cervicomedullary junction. Noted also empty sella patient has history of seizures patient was given steroids IV Solu-Medrol advised cervical spine [facility] Medical History Anxiety Seizure disorder Vitamin D deficiency Osteopenia Hypercholesterolemia Type 2 diabetes mellitus with hyperglycemia Surgical History History of tubal ligation Family History Father Hypertension Mother Cancer Brother Diabetes Social History Household Members: Children Household Members Other:: Daughter: Monik Housing: Apartment Do you presently have visiting nurse or other home services: No Alcohol intake: never Patient Tobacco Use Status: Former Tobacco user Tobacco use type: Cigarette Cigarettes Per Day: 1 Years Smoked: 5 e-Cigarette/Vaping Use: Never Used Second Hand Smoke Exposure: No service: No Current occupational status: retired Cognitive needs: No Hearing needs: No Vision needs: Yes Questionnaire Thrive Questionnaire Date Thrive assessed: 08/08/23 AUDIT C Alcohol Use Questionnaire (AUDIT-C) 1. How often do you have a drink containing alcohol?: Never 3. How often do you have six or more drinks on one occasion?: Never Total Score: 0 Score Reviewed/Action Taken: No LAZARUS-7 AMB Questionnaire LAZARUS-7 Date LAZARUS - 7 assessed: 08/17/23 Source: Developed by Drs. Roque Engel, Regine Lenz, Sharan Ervin and colleagues, with an educational armando from [id number]. Physical exam (Primary Care) Vital Signs: Last Vital Signs Pulse 83 08/17/23 15:45 BP 130/68 08/17/23 15:45 Pulse Ox 98 08/17/23 15:45 Oxygen Delivery Method Room Air 08/17/23 15:45 BMI result Body Mass Index 19.6 Tobacco/Smoking Status: Tobacco use Status Tobacco use date assessed 08/17/23 08/17/23 16:00 Patient Tobacco Use Status Former Tobacco user 08/17/23 16:00 Tobacco use type Cigarette 08/17/23 16:00 e-Cigarette/Vaping Use Never Used 08/17/23 16:00 Thrive Assessment: Date of Thrive Assessment Date Thrive assessed 08/08/23 08/17/23 16:00 Const General: alert; No acute distress Eyes Conjunctivae: conjunctivae normal Resp Auscultation: clear to auscultation bilaterally Cardio Rate: regular rate Rhythm: regular rhythm GI Inspection: Yes normal to inspection Extrem General: Yes normal to inspection and No edema Assessment and Plan Assessment & Plan (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 Code(s): G37.9 - Demyelinating disease of central nervous system, unspecified Plan: With the dizziness workup showed demyelination patient was advised to get cervical CT and to follow-up with Neurology (2) Hypertension: Code(s): I10 - Essential (primary) hypertension Plan: Continue with blood pressure medication. 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 Diet controlled (4) Hypercholesterolemia: Code(s): E78.00 - Pure hypercholesterolemia, unspecified Plan: Avoid fried foods, chicken skin, eggs, butter margarine, pastries and meat. 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
== END 2023-08-17 16:40 | disposition home or self-care (01) ==
PROVIDERS: PCP Internal Medicine; Visit Provider Internal Medicine
DX: G37.9 Demyelinating disease of central nervous system, unspecified (principal); I10 Essential (primary) hypertension; E11.65 Type 2 diabetes mellitus with hyperglycemia; E78.00 Pure hypercholesterolemia, unspecified; F41.1 Generalized anxiety disorder
CPT/HCPCS: 99214

== ENCOUNTER 2023-11-01 10:22 | Outpatient (REF) | payer OTHER, SELFPAY ==
--- NOTE | ~2023-11-01 | MR_ITS ---
EXAMINATION: MR CERVICAL SPINE WITHOUT AND WITH CONTRAST CLINICAL INFORMATION: Demyelinating disease. COMPARISON: Brain MRI from 08/07/2023. TECHNIQUE: MRI of the cervical spine was obtained using routine sequences without and following the administration of 5 mL of Gadavist intravenous contrast. FINDINGS: Mild degenerative retrolistheses C3 on C4 and C5 on C6. Minimal degenerative stepwise anterolistheses of C6-T1. Advanced degenerative disc disease at C5-C6. Moderate degenerative disc disease at C3-C4 and C6-C7. Mild degenerative disc disease at all additional levels. Associated mixed Modic type discogenic and plate changes including mild Modic type I discogenic edema from C3-C6. No additional suspicious marrow edema. The vertebral body heights are well-maintained. No demonstrated spinal cord signal abnormalities. No abnormal contrast enhancement. There is a 2 cm heterogeneous lesion in the left thyroid lobe. Otherwise, limited evaluation of the soft tissues of the neck without demonstrated abnormalities. The flow voids of the major cervical vessels are maintained. Normal appearance of the cervicomedullary junction and visualized posterior fossa. SPINAL LEVELS: C2-C3: Minimal disc-osteophyte complex. There is no uncovertebral joint arthropathy. There is moderate left and mild right facet joint arthropathy. There is mild left and no right neural foraminal stenosis. There is no spinal canal stenosis. C3-C4: Moderate disc-osteophyte complex. There is moderate left and mild right uncovertebral joint arthropathy. There is severe bilateral facet joint arthropathy. There is mild bilateral neural foraminal stenosis. There is mild to moderate spinal canal stenosis. C4-C5: Moderate disc-osteophyte complex. There is moderate left and mild right uncovertebral joint arthropathy. There is severe bilateral facet joint arthropathy. There is mild right and no left neural foraminal stenosis. There is moderate spinal canal stenosis. C5-C6: Moderate disc-osteophyte complex. There is severe left and moderate right uncovertebral joint arthropathy. There is moderate bilateral facet joint arthropathy. There is severe left and moderate right neural foraminal stenosis. There is moderate spinal canal stenosis. C6-C7: Mild disc-osteophyte complex. There is moderate left and mild right uncovertebral joint arthropathy. There is severe left and moderate right facet joint arthropathy. There is moderate left and mild right neural foraminal stenosis. There is mild spinal canal stenosis. C7-T1: Mild disc-osteophyte complex. There is moderate left and no right uncovertebral joint arthropathy. There is moderate bilateral facet joint arthropathy. There is mild left and no right neural foraminal stenosis. There is no spinal canal stenosis. MR/MR cervical spine wo/w con IMPRESSION: 1. Moderate to advanced multilevel degenerative spondyloarthropathy of the cervical spine as described in detail above. Most notably, there are moderate spinal canal stenoses at C4-C5 and C5-C6. Mild spinal canal stenosis at C3-C4 and C6-C7. Moderate to severe neural foraminal stenoses at C5-C6 and C6-C7. 2. No demonstrated spinal cord signal abnormalities. No abnormal enhancement. 3. There is a 2 cm heterogeneous lesion in the left thyroid lobe. Recommend further characterization with thyroid ultrasound.
[2023-11-01] MEDS: gadobutroL 7.5 ML VIAL IVPUSH (11:43)
== END 2023-11-01 10:23 | disposition home or self-care (01) ==
LOC: HO.MRI 10:22
PROVIDERS: PCP Internal Medicine; Visit Provider Internal Medicine
DX: G37.9 Demyelinating disease of central nervous system, unspecified (principal)
CPT/HCPCS: 72156; A9585

== ENCOUNTER 2023-11-03 09:36 | Outpatient (REF) | payer OTHER, SELFPAY ==
--- NOTE | ~2023-11-03 | MM_ITS ---
EXAMINATION: MM SCREENING DIGITAL BREAST TOMOSYNTHESIS, BILATERAL CLINICAL INFORMATION: Screening. Asymptomatic. COMPARISON: Mammography: This study is compared with prior exams dating back to 2019. TECHNIQUE: Digital breast tomosynthesis is performed in both the craniocaudal and mediolateral oblique views along with computer-aided detection (CAD). Synthesized 2D images are generated from the tomosynthesis. FINDINGS: The breasts are heterogeneously dense, which may obscure small masses (ACR BI-RADS breast composition Category c). There are no significant masses, abnormal calcifications, or other abnormalities. MM/MM tomosynthesis screening BI IMPRESSION: No mammographic evidence of malignancy. ASSESSMENT: BI-RADS BI-RADS 2 - Benign Findings RECOMMENDATION: Routine annual mammography screening. 1 year F/U This examination should not preclude the clinical evaluation of a suspicious palpable abnormality. This patient's information was entered into a reminder system with a target due date for their next mammogram.
== END 2023-11-03 09:37 | disposition home or self-care (01) ==
LOC: HO.MAMMO 09:36
PROVIDERS: PCP Internal Medicine; Visit Provider Internal Medicine
DX: Z12.31 Encounter for screening mammogram for malignant neoplasm of breast (principal)
CPT/HCPCS: 77063; 77067

== ENCOUNTER → 2023-11-03 10:00 | Outpatient (BNV) | payer OTHER, SELFPAY | PROVIDERS: PCP Internal Medicine; Visit Provider Radiology Diagnostic Radiology | DX: Z12.31 Encounter for screening mammogram for malignant neoplasm of breast (principal) | CPT/HCPCS: 77063; 77067 ==

== ENCOUNTER 2023-11-24 11:25 | Outpatient (REF) | payer OTHER, SELFPAY ==
--- NOTE | ~2023-11-24 | US_ITS ---
EXAMINATION: US THYROID CLINICAL INFORMATION: Nontoxic single thyroid nodule. COMPARISON: None available. TECHNIQUE: Linear transducer grayscale and color Doppler examination with attention to the region of the thyroid. FINDINGS: SIZE: Measurements of the thyroid lobes and nodules are given in sagittal, anteroposterior and transverse dimensions respectively. Right Thyroid Lobe: 6.4 x 2.5 x 2.8 cm, volume 23.2 mL. Parenchyma: The gland echotexture is heterogeneous. Thyroid vascularity is normal. Left Thyroid Lobe: 5.9 x 2.7 x 3.0 cm, volume 25.5 mL. Parenchyma: The gland echotexture is heterogeneous. Thyroid vascularity is normal. Isthmus: 0.3 cm in maximum AP dimension. Estimated total number of nodules greater than or equal to 1 cm: 3. 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 Location: Right superior. Size: 1.1 x 1.0 x 0.6 cm, volume 0.337 mL. Nodule characteristics: Composition: Solid (2). Echogenicity: Isoechoic (1). Shape: Not taller than wide (0). Margins: Smooth (0). Echogenic Foci: None (0). ACR TI-RADS total points: 3 ACR TI-RADS category: 3 2. Location: Right mid. Size: 0.8 x 0.4 x 0.5 cm, volume 0.082 mL. Nodule characteristics: Composition: Spongiform (0). Echogenicity: Anechoic (0). Shape: Not taller than wide (0). Margins: Smooth (0). Echogenic Foci: None (0). ACR TI-RADS total points: 0 ACR TI-RADS category: 1 3. Location: Right inferior. Size: 1.2 x 1.0 x 1.0 cm, volume 0.656 mL. Nodule characteristics: Composition: Solid (2). Echogenicity: Hyperechoic (1). Shape: Not taller than wide (0). Margins: Smooth (0). Echogenic Foci: None (0). ACR TI-RADS total points: 3 ACR TI-RADS category: 3 4. Location: Left inferior. Size: 2.7 x 2.9 x 2.1 cm, volume 8.4 mL. Nodule characteristics: Composition: Solid (2). Echogenicity: Hypoechoic (2). Shape: Not taller than wide (0). Margins: Lobulated (2). Echogenic Foci: None (0). ACR TI-RADS total points: 6 ACR TI-RADS category: 4 5. Location: Left mid. Size: 0.8 x 0.8 x 0.5 cm, volume 0.173 mL. Nodule characteristics: Composition: Solid/almost completely solid (2). Echogenicity: Hypoechoic (2). Shape: Not taller than wide (0). Margins: Smooth (0). Echogenic Foci: None (0). ACR TI-RADS total points: 4 ACR TI-RADS category: 4 NODES: No lymphadenopathy is seen in the tissue surrounding the thyroid gland. US/US thyroid IMPRESSION: Enlarged, heterogeneous multinodular thyroid gland. 2.7 cm left lower thyroid nodule TR4 thyroid nodule (less likely pseudonodule) meets criteria for biopsy. Fine-needle aspiration recommended. This study was presented to nd November for interpretation. PSA staff will provide results to referring provider at this time. ACR TI-RADS RECOMMENDATION REFERENCE: Ultrasound-guided fine-needle aspiration, followup ultrasound, no further follow up. * TR1 (0 point) and TR2 (2 points): No FNA or follow up. * TR3 (3 points): FNA if more than or equal to 2.5 cm in maximum dimension, followup ultrasound in 1, 3 and 5 years if 1.5 to 2.4 cm in maximum dimension. * TR4 (4-6 points): FNA if more than or equal to 1.5 cm in maximum dimension, followup ultrasound in 1, 2, 3 and 5 years if 1 to 1.4 cm in maximum dimension. * TR5 (more than or equal to 7 points): FNA if more than or equal to 1 cm in maximum dimension, followup ultrasound every year for 5 years if 0.5 to 0.9 cm in maximum dimension. * TR3, TR4 or TR5 nodules that are below the size threshold for followup receive no follow up.
== END 2023-11-24 11:26 | disposition home or self-care (01) ==
LOC: HO.US 11:25
PROVIDERS: PCP Internal Medicine; Visit Provider Internal Medicine
DX: E04.1 Nontoxic single thyroid nodule (principal)
CPT/HCPCS: 76536

== ENCOUNTER 2023-12-16 10:59 | Outpatient (AMB) | payer OTHER, SELFPAY ==
--- NOTE | 2023-12-16 11:02 | MHC.PC.OV ---
Vital Signs 12/16/23 11:03 Height 5 ft 2 in Weight 110 lb BMI 20.1 BP 118/62 Blood Pressure Location Lt brachial Position Sitting Pulse 83 Pulse Source Pulse Oximeter Pulse Oximetry (%) 97 Oxygen Delivery Method Room Air Intake Visit Reasons: demyelinating disease, DM Allergies pravastatin Allergy (Unknown, Verified 12/16/23 11:03) Unknown simvastatin Allergy (Unknown, Verified 12/16/23 11:03) Unknown metformin Adverse Reaction (Intermediate, Verified 12/16/23 11:03) Abdominal Pain Penicillins Adverse Reaction (Verified 12/16/23 11:03) Weakness Medication List - Last Reconciled 12/16/23 by Lucia Curry MD blood pressure monitor (Blood Pressure Kit) As directed blood sugar diagnostic As directed check the blood sugar once a day ONE TOUCH blood-glucose meter (OneTouch Ultra2 Meter kit) As directed check the blood sugar once a day diclofenac sodium 1% (Voltaren Arthritis Pain) 4 grams topical QID lancets As directed check the blood sugar q.day lisinopril 5 mg PO DAILY 90 days lorazepam 1-2 tab orally 1 hour before the procedure PRN; omega-3 fatty acids (Fish Oil Concentrate) 1,000 mg PO DAILY [One touch Ultra test strips As directed] rosuvastatin 5 mg PO DAILY Tobacco use date assessed: 08/17/23 Fall risk assessment: No Falls in past year Last assessed Fall Risk: 12/16/23 Dental Screening Dental Screen Date: 08/17/23 HPI demyelinating disease, DM HPI Details 73-year-old female with a history of controlled diabetes mellitus hypertension hypercholesterolemia generalized anxiety disorder 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 Mammogram is up-to-date declined colonoscopy up-to-date with bone density. This has stemmed from an hospital visit for evaluation of dizziness noted right pupillary dilation with lateral palsy head CT negative MRI done noted to have supratentorial and single infratentorial white matter lesions suspicion of demyelinating disease. MRI done 08/08/2023Enhancement associated with a single infratentorial lesion along the dorsal roel suggestive of active demyelination. No pathologic intracranial enhancement associated with the supratentorial white matter lesions. Consider contrast enhanced MRI of the cervical and thoracic spine to assess for possibility of demyelinating plaques in the cervicothoracic cord. MRI done in October Moderate to advanced multilevel degenerative spondyloarthropathy of the cervical spine as described in detail above. Most notably, there are moderate spinal canal stenoses at C4-C5 and C5-C6. Mild spinal canal stenosis at C3-C4 and C6-C7. Moderate to severe neural foraminal stenoses at C5-C6 and C6-C7. 2. No demonstrated spinal cord signal abnormalities. No abnormal enhancement. 3. There is a 2 cm heterogeneous lesion in the left thyroid lobe. Recommend further characterization with thyroid ultrasound. Thyroid ultrasound done 11/24/2023Enlarged, heterogeneous multinodular thyroid gland. 2.7 cm left lower thyroid nodule TR4 thyroid nodule (less likely pseudonodule) meets criteria for biopsy. Fine-needle aspiration recommended. Has been referred to endocrinology. As for Neurology for the demyelinating problem has a schedule in January. Otherwise patient feels that there is a pushing force from the chest to the lower extremity in which patient feels that she is walking on rocks. Discussed with the patient diabetes will cause neuropathy pulses of the lower extremity is fine. Advised to get blood work done and await for referral to Neurology. [facility] Medical History Anxiety Seizure disorder Vitamin D deficiency Osteopenia Hypercholesterolemia Type 2 diabetes mellitus with hyperglycemia Surgical History History of tubal ligation Family History Father Hypertension Mother Cancer Brother Diabetes Social History Household Members: Children Household Members Other:: Daughter: Monik Housing: Apartment Do you presently have visiting nurse or other home services: No Alcohol intake: never Patient Tobacco Use Status: Former Tobacco user Tobacco use type: Cigarette Cigarettes Per Day: 1 Years Smoked: 5 e-Cigarette/Vaping Use: Never Used Second Hand Smoke Exposure: No service: No Current occupational status: retired Cognitive needs: No Hearing needs: No Vision needs: Yes Questionnaire PHQ-9 Over the last 2 weeks, how often have you been bothered by any of the following problems? 1. Little interest or pleasure in doing things: not at all (Son two months ago) 2. Feeling down, depressed, or hopeless: not at all 3. Trouble falling or staying asleep, or sleeping too much: not at all 4. Feeling tired or having little energy: not at all 5. Poor appetite or overeating: not at all 6. Feeling bad about yourself - or that you are a failure or have let yourself or your family down: not at all 7. Trouble concentrating on things, such as reading the newspaper or watching television: not at all 8. Moving or speaking so slowly that other people could have noticed. Or the opposite - being so fidgety or restless that you have been moving around a lot more than usual: not at all 9. Thoughts that you would be better off or of hurting yourself in some way: not at all Total score: 0 Depression Screening Interpretation: Negative Depression Screening Done: Yes 27856 - PHQ-9 Billing: Yes Source: Developed by Drs. Roque Engel, Regine Lenz, Sharan Ervin and colleagues, with an educational armando from [employer]. Thrive Questionnaire Date Thrive assessed: 08/08/23 AUDIT C Alcohol Use Questionnaire (AUDIT-C) 1. How often do you have a drink containing alcohol?: Never 3. How often do you have six or more drinks on one occasion?: Never Total Score: 0 Score Reviewed/Action Taken: No LAZARUS-7 AMB Questionnaire LAZARUS-7 Date LAZARUS - 7 assessed: 08/17/23 Source: Developed by Drs. Roque Engel, Regine Lenz, Sharan Ervin and colleagues, with an educational armando from [employer]. Physical exam (Primary Care) Vital Signs: Last Vital Signs Pulse 83 12/16/23 11:03 BP 118/62 12/16/23 11:03 Pulse Ox 97 12/16/23 11:03 Oxygen Delivery Method Room Air 12/16/23 11:03 BMI result Body Mass Index 20.1 Tobacco/Smoking Status: Tobacco use Status Tobacco use date assessed 08/17/23 12/16/23 11:04 Patient Tobacco Use Status Former Tobacco user 12/16/23 11:04 Tobacco use type Cigarette 12/16/23 11:04 e-Cigarette/Vaping Use Never Used 12/16/23 11:04 PHQ-9: PHQ-9 Score PHQ-9: Total score 0 12/16/23 11:22 Depression Screening Interpretation: Negative Thrive Assessment: Date of Thrive Assessment Date Thrive assessed 08/08/23 12/16/23 11:04 Const General: alert; No acute distress Eyes Conjunctivae: conjunctivae normal Resp Auscultation: clear to auscultation bilaterally Cardio Rate: regular rate Rhythm: regular rhythm GI Inspection: Yes normal to inspection Extrem General: Yes normal to inspection and No edema Results AMB Hemoglobin A1c AMB Hemoglobin A1c 6.1 % Last Edit by Nilda Best CMA on 12/16/23 11:26 Assessment and Plan Assessment & Plan (1) SUPER[employer] demyelination: Comment: MRI July 2023Enhancement associated with a single infratentorial lesion along the dorsal roel suggestive of active demyelination. Code(s): G37.9 - Demyelinating disease of central nervous system, unspecified Plan: Cervical spine MRI, except for degenerative disc problems no enhancements. NEurology January 2024 (2) Thyroid nodule: Comment: November 2023Enlarged, heterogeneous multinodular thyroid gland. 2.7 cm left lower thyroid nodule TR4 thyroid nodule (less likely pseudonodule) meets criteria for biopsy. Fine-needle aspiration recommended. 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 Hemoglobin A1c goal of less than 7.0. Patient has diabetes under control. . Discussed complications of neuropathy and this may be what she is feeling but on the other hand the problem of demyelinating disease. Blood work requested (4) Hypercholesterolemia: Code(s): E78.00 - Pure hypercholesterolemia, unspecified Plan: Avoid fried foods, chicken skin, eggs, butter margarine, pastries and meat. Be it pork or beef they have a lot of cholesterol LDL goal of less than 130 and triglyceride of less than 150 on rosuvastatin 5 mg once a day patient will need repeat blood work (5) Generalized anxiety disorder: Code(s): F41.1 - Generalized anxiety disorder Plan: Continue with lorazepam as needed (6) Hypertension: Code(s): I10 - Essential (primary) hypertension Plan: Continue with blood pressure medication. Decrease salt intake and exercise takes lisinopril 5 mg once a day (7) Bilateral hand pain: Code(s): M79.641 - Pain in right hand; M79.642 - Pain in left hand Orders: Orders AMB Hemoglobin A1c Today Z13.9 - Encounter for screening, unspecified XR hand LT 2V Today M79.641 - Pain in right hand, M79.642 - Pain in left hand XR hand RT 2V Today M79.641 - Pain in right hand, M79.642 - Pain in left hand Medications: New diclofenac sodium 1% (Voltaren Arthritis Pain) apply to single knee, ankle, foot; for foot includes sole/toes/top of foot 4 grams topical QID 400 grams 3RF M79.641 - Pain in right hand, M79.642 - Pain in left hand Refilled [One touch Ultra test strips] As directed 100 ea 3RF M79.641 - Pain in right hand, M79.642 - Pain in left hand Coding Level of Care Code Est Pt Level 4 (88748) Diagnoses [employer] demyelination G37.9 Thyroid nodule E04.1 Type 2 diabetes mellitus with hyperglycemia, without long-term current use of insulin E11.65 Diabetes mellitus 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
[2023-12-16 11:03] VITALS: BP 118/62; PULSE 83; O2SAT 97; BMI 20.1
== END 2023-12-16 11:50 | disposition home or self-care (01) ==
PROVIDERS: PCP Internal Medicine; Visit Provider Internal Medicine
DX: G37.9 Demyelinating disease of central nervous system, unspecified (principal); E04.1 Nontoxic single thyroid nodule; E11.65 Type 2 diabetes mellitus with hyperglycemia; E78.00 Pure hypercholesterolemia, unspecified; F41.1 Generalized anxiety disorder; I10 Essential (primary) hypertension; M79.641 Pain in right hand; M79.642 Pain in left hand; Z13.9 Encounter for screening, unspecified
CPT/HCPCS: 83036; 99214

== ENCOUNTER 2023-12-16 11:58 | Outpatient (REF) | payer OTHER, SELFPAY ==
--- NOTE | ~2023-12-16 | XR_ITS ---
EXAMINATION: XR HAND, RIGHT XR HAND, LEFT CLINICAL INFORMATION: Pain in both hands. COMPARISON: None available. TECHNIQUE: PA, lateral, and oblique views of each hand. FINDINGS: Bones are osteopenic. No acute fractures. Alignment is appropriate. No soft tissue calcifications or periostitis. RIGHT HAND: Old healed fifth metacarpal fracture at the shaft. Mlqe-hr-dwemtanr osteoarthritis in the triscaphe and first CMC joints as well as multiple interphalangeal joints, most notably the thumb IP joint and the DIP joints of the index and long fingers. More mild osteoarthritis at multiple MCP joints. No erosions. LEFT HAND: Stpy-so-rcugfakw multifocal osteoarthritis is most notable at the first CMC joint and long finger DIP joint. More mild multifocal osteoarthritis in other joints including the MCP joints and other IP joints. No erosions. 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 No acute osseous findings.
--- NOTE | ~2023-12-16 | XR_ITS ---
EXAMINATION: XR HAND, RIGHT XR HAND, LEFT CLINICAL INFORMATION: Pain in both hands. COMPARISON: None available. TECHNIQUE: PA, lateral, and oblique views of each hand. FINDINGS: Bones are osteopenic. No acute fractures. Alignment is appropriate. No soft tissue calcifications or periostitis. RIGHT HAND: Old healed fifth metacarpal fracture at the shaft. Mcny-wi-aqruwcqy osteoarthritis in the triscaphe and first CMC joints as well as multiple interphalangeal joints, most notably the thumb IP joint and the DIP joints of the index and long fingers. More mild osteoarthritis at multiple MCP joints. No erosions. LEFT HAND: Nfta-nf-tyfvhxen multifocal osteoarthritis is most notable at the first CMC joint and long finger DIP joint. More mild multifocal osteoarthritis in other joints including the MCP joints and other IP joints. No erosions. 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 No acute osseous findings.
== END 2023-12-16 11:59 | disposition home or self-care (01) ==
LOC: HO.XRAY 11:58
PROVIDERS: PCP Internal Medicine; Visit Provider Internal Medicine
DX: M79.641 Pain in right hand (principal); M79.642 Pain in left hand
CPT/HCPCS: 73120

== ENCOUNTER 2023-12-17 06:21 | Outpatient (REF) | payer OTHER, SELFPAY ==
[2023-12-17 06:41] LABS: MANUAL DIFF FLAG NO
[2023-12-17 07:26] LABS: Basophils Absolute Auto 0.1 X10*3/uL (0.0-0.2); Basophils Percent Auto 1.5 % (0-2); Eosinophils Absolute Auto 0.5 X10*3/uL (0.0-0.4); Eosinophils Percent Auto 8.4 % (0-4); Imm Gran Abs Auto 0.01 X10*3/uL (0.00-0.03); Imm Gran Pct Auto 0.2 % (0.0-0.4); Lymphocytes Percent Auto 48.7 % (20-40); Mean Corpuscular HGB Conc 32.5 g/dl (31.0-35.0); Mean Corpuscular Hemoglobin 28.2 pg (27.0-33.0); Mean Corpuscular Volume 86.8 fL (80.0-98.0); Mean Platelet Volume 9.7 fL (9.4-12.3); Monocytes Absolute Auto 0.6 X10*3/uL (0.1-1.2); Monocytes Percent Auto 8.9 % (2-11); Neutrophils Percent Auto 32.3 % (45-73); Platelet Count 263 X10*3/uL (160-400); Red Blood Count 4.61 X10*6/uL (4.20-5.50); Red Cell Distribution Width 12.9 % (11.0-16.0); White Blood Count 6.2 X10*3/uL (4.8-10.8)
[2023-12-17 07:44] LABS: Estimated Average Glucose 128 mg/dL; Hemoglobin A1c % 6.1 % (<6.0)
[2023-12-17 08:02] LABS: Alanine Aminotransferase 9 U/L (0-31); Albumin Level 3.9 g/dL (3.5-5.0); Alkaline Phosphatase 70 U/L (39-117); Anion Gap 10 (12-20); Aspartate Amino Transferase 13 U/L (5-31); Bilirubin Total 0.5 mg/dL (0.0-1.0); Blood Urea Nitrogen 15 mg/dL (9-16); Calcium 9.3 mg/dL (8.4-10.2); Carbon Dioxide 30 mmol/L (22-29); Chloride 105 mmol/L (96-108); Cholesterol 126 mg/dL (<200); Estimated Glomerular Filt Rate > 60; Glucose Random 102 mg/dL (60-115); HDL Cholesterol 57 mg/dL (>40); LDL Cholesterol Calculated 59 mg/dL (<100); Potassium 4.4 mmol/L (3.3-5.1); Sodium 141 mmol/L (135-145); Total Protein 6.3 g/dL (6.5-8.0); Triglycerides 52 mg/dL (<150)
[2023-12-17 08:05] LABS: Creatinine Urine 109.07 mg/dL; Microalbumin Urine < 5.0 mg/L
[2023-12-17 08:24] LABS: Free T4 (Free Thyroxine) 0.95 ng/dL (0.71-1.85); Thyroid Stimulating Hormone 1.47 uIU/mL (0.32-4.0); Vitamin D 25-OH Total 23.9 ng/mL (>30)
[2023-12-17 08:34] LABS: Folate 8.9 ng/mL (> or = 4.0); Vitamin B12 1198 pg/mL (200-900)
== END 2023-12-17 06:22 | disposition home or self-care (01) ==
LOC: HO.LAB 06:21
PROVIDERS: PCP Internal Medicine; Visit Provider Internal Medicine
DX: E11.65 Type 2 diabetes mellitus with hyperglycemia (principal); E78.00 Pure hypercholesterolemia, unspecified
CPT/HCPCS: 36415; 80053; 80061; 82043; 82306; 82570; 82607; 82746; 83036; 84439; 84443; 85025

== ENCOUNTER 2024-01-05 09:17 | Outpatient (AMB) | payer OTHER, SELFPAY ==
--- NOTE | 2024-01-05 09:20 | MHC.OFFVIS ---
Vital Signs 01/05/24 09:27 Height 5 ft 2 in Weight 111 lb 12.39 oz BMI 20.4 BP 124/54 L Blood Pressure Location Lt brachial Position Sitting Pulse 87 Pulse Source Pulse Oximeter Intake Visit Reasons: Nontoxic single thyroid nodule-confirmed Intake Note: New patient present today for Nontoxic single thyroid nodule office visit. 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 Accompanied by: Daughter Allergies pravastatin Allergy (Unknown, Verified 01/05/24 09:32) Unknown simvastatin Allergy (Unknown, Verified 01/05/24 09:32) Unknown metformin Adverse Reaction (Intermediate, Verified 01/05/24 09:32) Abdominal Pain Penicillins Adverse Reaction (Verified 01/05/24 09:32) Weakness Medication List - Last Reconciled 01/05/24 by Roque Rivera MD acetaminophen (Tylenol Extra Strength) 500 mg PO Q6H PRN blood pressure monitor (Blood Pressure Kit) As directed blood sugar diagnostic As directed check the blood sugar once a day ONE TOUCH blood-glucose meter (OneTouch Ultra2 Meter kit) As directed check the blood sugar once a day diclofenac sodium 1% (Voltaren Arthritis Pain) 4 grams topical QID lancets As directed check the blood sugar q.day lisinopril 5 mg PO DAILY 90 days lorazepam 1-2 tab orally 1 hour before the procedure PRN; omega-3 fatty acids (Fish Oil Concentrate) 1,000 mg PO DAILY [One touch Ultra test strips Use 1 test strip once a day] rosuvastatin 5 mg PO DAILY HPI Comments Details: 73 YO F who is seen in consultation for multinodular thyroid at the request of PCP. Was initially diagnosed with multinodular thyroid in just discovered with thyroid US revealing see below . Currently denies any dysphagia or hoarseness of voice. Denies sensation of swelling in the neck or difficulty breathing while lying flat. Denies any tenderness in the neck. Denies any palpitations, tremors, weight loss, frequent bowel movements. Denies any ocular complaints, blurred or double vision. Denies hair loss, dry skin, heat or cold intolerance, weight gain, confusion. Denies any history of head or neck irradiation. Denies any family history of thyroid cancer. Daughter has hyperthyroidism No biopsy of nodules in the past. Thyroid US: 11/24/2023 FINDINGS: SIZE: Measurements of the thyroid lobes and nodules are given in sagittal, anteroposterior and transverse dimensions respectively. Right Thyroid Lobe: 6.4 x 2.5 x 2.8 cm, volume 23.2 mL. Parenchyma: The gland echotexture is heterogeneous. Thyroid vascularity is normal. Left Thyroid Lobe: 5.9 x 2.7 x 3.0 cm, volume 25.5 mL. Parenchyma: The gland echotexture is heterogeneous. Thyroid vascularity is normal. Isthmus: 0.3 cm in maximum AP dimension. Estimated total number of nodules greater than or equal to 1 cm: 3. Drafting Layout Worker nodules are described as follows: 1. Location: Right superior. Size: 1.1 x 1.0 x 0.6 cm, volume 0.337 mL. Nodule characteristics: Composition: Solid (2). Echogenicity: Isoechoic (1). Shape: Not taller than wide (0). Margins: Smooth (0). Echogenic Foci: None (0). ACR TI-RADS total points: 3 ACR TI-RADS category: 3 2. Location: Right mid. Size: 0.8 x 0.4 x 0.5 cm, volume 0.082 mL. Nodule characteristics: Composition: Spongiform (0). Echogenicity: Anechoic (0). Shape: Not taller than wide (0). Margins: Smooth (0). Echogenic Foci: None (0). ACR TI-RADS total points: 0 ACR TI-RADS category: 1 3. Location: Right inferior. Size: 1.2 x 1.0 x 1.0 cm, volume 0.656 mL. Nodule characteristics: Composition: Solid (2). Echogenicity: Hyperechoic (1). Shape: Not taller than wide (0). Margins: Smooth (0). Echogenic Foci: None (0). ACR TI-RADS total points: 3 ACR TI-RADS category: 3 4. Location: Left inferior. Size: 2.7 x 2.9 x 2.1 cm, volume 8.4 mL. Nodule characteristics: Composition: Solid (2). Echogenicity: Hypoechoic (2). Shape: Not taller than wide (0). Margins: Lobulated (2). Echogenic Foci: None (0). ACR TI-RADS total points: 6 ACR TI-RADS category: 4 5. Location: Left mid. Size: 0.8 x 0.8 x 0.5 cm, volume 0.173 mL. Nodule characteristics: Composition: Solid/almost completely solid (2). Echogenicity: Hypoechoic (2). Shape: Not taller than wide (0). Margins: Smooth (0). Echogenic Foci: None (0). ACR TI-RADS total points: 4 ACR TI-RADS category: 4 NODES: No lymphadenopathy is seen in the tissue surrounding the thyroid gland. US/US thyroid IMPRESSION: Enlarged, heterogeneous multinodular thyroid gland. 2.7 cm left lower thyroid nodule TR4 thyroid nodule (less likely pseudonodule) meets criteria for biopsy. Fine-needle aspiration recommended. Labs: TSH was 1.47 PFSH Medical History Anxiety Seizure disorder Vitamin D deficiency Osteopenia Hypercholesterolemia Type 2 diabetes mellitus with hyperglycemia Surgical History History of tubal ligation Family History Father Hypertension Mother Cancer Brother Diabetes Social History Household Members: Children Household Members Other:: Daughter: Monik Housing: Apartment Do you presently have visiting nurse or other home services: No Alcohol intake: never Patient Tobacco Use Status: Former Tobacco user Tobacco use type: Cigarette Cigarettes Per Day: 1 Years Smoked: 5 e-Cigarette/Vaping Use: Never Used Second Hand Smoke Exposure: No service: No Current occupational status: retired Cognitive needs: No Hearing needs: No Vision needs: Yes Physical Exam Vital Signs: Last Vital Signs Pulse 87 01/05/24 09:27 BP 124/54 L 01/05/24 09:27 BMI result Body Mass Index 20.4 HEENT reveals absence of lid lag , stare or proptosis or eyebrow loss. Thyroid gland measure 15 gms . No nodules or tenderness palpated. There is no cervical adenopathy palpated. Lungs CTA. Heart S1, S2 Reg R/R -M/R/G. Abdominal exam benign. Skin exam reveals absence of dryness or thyroid dermopathy or vitiligo. Nail exam reveals absence of thyroid acropachy or oncholysis. Neurologic exam reveals 2+ reflexes . Muscle Strength is 5/5 proximally. There are no tremors in upper extremities. Assessment & Plan Assessment & Plan (1) Thyroid nodule: Comment: November 2023Enlarged, heterogeneous multinodular thyroid gland. 2.7 cm left lower thyroid nodule TR4 thyroid nodule (less likely pseudonodule) meets criteria for biopsy. Fine-needle aspiration recommended. Code(s): E04.1 - Nontoxic single thyroid nodule Category: Medical Plan: This is a 73-year-old female with a history of multinodular goiter with a dominant 2.7 cm left thyroid nodule. She appears to be clinically and biochemically euthyroid Plan is to send the patient to Dr. Lorenzo a new adaptive physical education specialist starting the practice with expertise in thyroid biopsy for fine-needle aspiration of the left lower thyroid nodule Coding Level of Care Code New Pt Level 4 (75940) Diagnoses Thyroid nodule E04.1
[2024-01-05 09:27] VITALS: BP 124/54; PULSE 87; BMI 20.4
== END 2024-01-05 09:49 | disposition home or self-care (01) ==
PROVIDERS: PCP Internal Medicine; Visit Provider Internal Medicine Endocrinology, Diabetes & Metabolism
DX: E04.1 Nontoxic single thyroid nodule (principal)
CPT/HCPCS: 99204

== ENCOUNTER → 2024-01-05 09:17 | Outpatient (BNVA) | payer OTHER, SELFPAY | PROVIDERS: PCP Internal Medicine; Visit Provider Internal Medicine Endocrinology, Diabetes & Metabolism | DX: E04.1 Nontoxic single thyroid nodule (principal) | CPT/HCPCS: 99202 ==

== ENCOUNTER 2024-01-31 07:33 | Outpatient (AMB) | payer OTHER, SELFPAY ==
--- NOTE | 2024-01-31 07:44 | MHC.OFFVIS ---
Vital Signs 01/31/24 07:47 Height 5 ft 2 in Weight 114 lb 2 oz BMI 20.9 BP 128/64 Blood Pressure Location Rt brachial Position Sitting Respiration 16 Pulse 71 Pulse Source Pulse Oximeter Pulse Oximetry (%) 97 Oxygen Delivery Method Room Air Intake Visit Reasons: INP-Demyelinating disease of - CONF Intake Note: Pt presents for new pt consultation for demyelinating disease. Personnel Analyst Required: Yes Personnel Analyst Services: Personnel Analyst Present Personnel Analyst Name: Tran Gillis CMA Allergies pravastatin Allergy (Unknown, Verified 01/31/24 07:46) Unknown simvastatin Allergy (Unknown, Verified 01/31/24 07:46) Unknown metformin Adverse Reaction (Intermediate, Verified 01/31/24 07:46) Abdominal Pain Penicillins Adverse Reaction (Verified 01/31/24 07:46) Weakness Medication List - Last Reconciled 01/31/24 by Giulia Newton MD acetaminophen (Tylenol Extra Strength) 500 mg PO Q6H PRN blood pressure monitor (Blood Pressure Kit) As directed blood sugar diagnostic As directed check the blood sugar once a day ONE TOUCH blood-glucose meter (OneTouch Ultra2 Meter kit) As directed check the blood sugar once a day diclofenac sodium 1% (Voltaren Arthritis Pain) 4 grams topical QID lancets As directed check the blood sugar q.day lisinopril 5 mg PO DAILY 90 days lorazepam 1-2 tab orally 1 hour before the procedure PRN; omega-3 fatty acids (Fish Oil Concentrate) 1,000 mg PO DAILY [One touch Ultra test strips Use 1 test strip once a day] rosuvastatin 5 mg PO DAILY HPI Comments Details: 73y/o female comes for further management of Multiple sclerosis. she started having balance issues in July of 2023- she was taken to ER . Her MRI showed an active demyelinating lesion in the Right dorsal Roel. she was treated with steroids but she still has gait and balance issues.s he denies any falls. she denies double vision , denies vertigo. she has weakness in her hands and electric shock like sensation in her back. she also has paretshesias in skye feet.Everytime she bends her neck down she has paresthesias in her hwole body she has chronic neck pain and has cervicogenic headaches.Her MRI C spine showed spinal stenosis and multilevel deg changes. she denies urinary or bowel issues. [facility] Medical History (Updated 01/31/24 @ 08:19 by Giulia Newton MD) Cervical spinal stenosis Multiple sclerosis involving brain stem Anxiety Seizure disorder Vitamin D deficiency Osteopenia Hypercholesterolemia Type 2 diabetes mellitus with hyperglycemia Surgical History History of tubal ligation Family History Father Hypertension Mother Cancer Brother Diabetes Social History Household Members: Children Household Members Other:: Daughter: Monik Housing: Apartment Do you presently have visiting nurse or other home services: No Alcohol intake: never Patient Tobacco Use Status: Former Tobacco user Tobacco use type: Cigarette Cigarettes Per Day: 1 Years Smoked: 5 e-Cigarette/Vaping Use: Never Used Second Hand Smoke Exposure: No service: No Current occupational status: retired Cognitive needs: No Hearing needs: No Vision needs: Yes Physical Exam Vital Signs: Last Vital Signs Pulse 71 01/31/24 07:47 Resp 16 01/31/24 07:47 BP 128/64 01/31/24 07:47 Pulse Ox 97 01/31/24 07:47 Oxygen Delivery Method Room Air 01/31/24 07:47 BMI result Body Mass Index 20.9 Const General: cooperative and comfortable Nutritional Appearance: average body habitus Orientation/consciousness: patient oriented x3 Eyes Pupils: Equal, round and reactive pupils present Neuro Other: gait- with cane slow and off balance EOM- saccadic General: patient oriented x3, tone normal, moves all extremities and no focal motor deficits Cranial nerves: Yes Facial sensation intact/muscles of mastication intact, Yes Equal, round and reactive pupils present, Yes Nystagmus not present, Yes Normal facial strength present and Yes Symmetric palate elevation present Cognition (Neuro): normal cognition Gait exam (Neuro): Antalgic gait present Motor exam (neuro): 5/5 motor strength present throughout and Normal motor muscle tone present throughout Deep tendon reflexes (DTR's): Right triceps reflex intensity grade: 2+, Left triceps reflex intensity grade: 2+, Rt Biceps (C5, C6): 2+, Left biceps reflex intensity grade: 2+, Right brachioradialis reflex intensity grade: 2+, Left brachioradialis reflex intensity grade: 2+, Right patellar reflex intensity grade: 2+ and Left patellar reflex intensity grade: 2+ Coordination: [id number] test normal Results Reviewed Results Reviewed: MRI brain 08/14 - Enhancement associated with a single infratentorial lesion along the dorsal roel suggestive of active demyelination. No pathologic intracranial enhancement associated with the supratentorial white matter lesions. Consider contrast enhanced MRI of the cervical and thoracic spine to assess for possibility of demyelinating plaques in the cervicothoracic cord. 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 Most notably, there are moderate spinal canal stenoses at C4-C5 and C5-C6. Mild spinal canal stenosis at C3-C4 and C6-C7. Moderate to severe neural foraminal stenoses at C5-C6 and C6-C7. 2. No demonstrated spinal cord signal abnormalities. No abnormal enhancement. 3. There is a 2 cm heterogeneous lesion in the left thyroid lobe. Recommend further characterization with thyroid ultrasound. Assessment & Plan Assessment & Plan (1) Cervical spinal stenosis: Comment: multilevel moderate Code(s): M48.02 - Spinal stenosis, cervical region Category: Medical (2) MORTGAGE CLERK demyelination: Comment: MRI July 2023Enhancement associated with a single infratentorial lesion along the dorsal roel suggestive of active demyelination. CSF negative for oligoclonal bands Code(s): G37.9 - Demyelinating disease of central nervous system, unspecified Category: Medical Plan Her gait and balance issues are related to her roel lesion and her spinal stenosis. MRI LS spine to further revaluate Repeat MRI Brain with shyanne - to check on her pontine lesion Though her CSF was negative for oligoclonal bands - an enhancing infratentorial lesion is highly suggestive of MS> will consider starting patient on Aubagio and her repeat MRI refer to Neurospine for spinal stenosis PT for and balance Baclofen 10mg qhs Orders: Orders MR lumbar spine w con Today G37.9 - Demyelinating disease of central nervous system, unspecified PT Evaluation and Treatment Today M48.02 - Spinal stenosis, cervical region MR head/brain wo/w con Today G37.9 - Demyelinating disease of central nervous system, unspecified Referrals Neuro Spine Referral M48.02 - Spinal stenosis, cervical region Medications: New baclofen 10 mg PO BEDTIME 30 tabs 1RF Coding Level of Care Code New Pt Level 4 (23256) Complex EM visit Add On G2211 Diagnoses Cervical spinal stenosis M48.02 MORTGAGE CLERK demyelination G37.9
[2024-01-31 07:47] VITALS: BP 128/64; PULSE 71; RESP 16; O2SAT 97; BMI 20.9
== END 2024-01-31 08:27 | disposition home or self-care (01) ==
PROVIDERS: PCP Internal Medicine; Visit Provider Psychiatry & Neurology Neurology
DX: M48.02 Spinal stenosis, cervical region (principal); G37.9 Demyelinating disease of central nervous system, unspecified
CPT/HCPCS: 99204; G2211

== ENCOUNTER → 2024-01-31 07:33 | Outpatient (BNVA) | payer OTHER, SELFPAY | PROVIDERS: PCP Internal Medicine; Visit Provider Psychiatry & Neurology Neurology | DX: M48.02 Spinal stenosis, cervical region (principal); G37.9 Demyelinating disease of central nervous system, unspecified | CPT/HCPCS: 99202 ==

== ENCOUNTER 2024-02-07 09:43 | Outpatient (AMB) | payer OTHER, SELFPAY ==
--- NOTE | 2024-02-07 09:46 | A.SPINEOV_ITS ---
Intake Visit Reasons: cervical stenosis Intake Note: Ms. Linda is here today to go over her MRI of Cervical Stenosis. Credit Controller Required: Yes Credit Controller Services: Credit Controller Present Allergies pravastatin Allergy (Unknown, Verified 02/07/24 09:52) Unknown simvastatin Allergy (Unknown, Verified 02/07/24 09:52) Unknown metformin Adverse Reaction (Intermediate, Verified 02/07/24 09:52) Abdominal Pain Penicillins Adverse Reaction (Verified 02/07/24 09:52) Weakness Assessment & Plan Assessment & Plan (1) Cervical spinal stenosis: Comment: multilevel moderate Code(s): M48.02 - Spinal stenosis, cervical region Category: Medical Plan Dear Dr. Giulia Grya, Thank you for referring Gerardo to our office today. She is a pleasant 73-year-old female who comes in today with a chief complaint of neck pain and balance issues. She states that she gets ?pain everywhere? when she attempts to engage in basic ADLs such as cooking/cleaning. She reports this has been ongoing since July and began acutely without any known inciting incident. In addition to her diffuse pain, she has some difficulties with dexterity, hand obstetrics scrub nurse, and balance. She ambulates with the assistance of a cane. She has been utilizing Tylenol for pain control. She has not been to physical therapy, attempted direct care professional, done any cortisone injections, or had acupuncture in the past. She denies any aggravating/alleviating factors. She denies any shooting radicular pains. She denies any numbness/tingling/weakness/burning. She denies any bowel/bladder incontinence. PMH: Type 2 diabetes, hypertension, hyperlipidemia, multiple sclerosis, thyroid nodule, osteoarthritis. History of tubal ligation. Social hx: Patient does not smoke, reports no substance use. Medications: Lisinopril, rosuvastatin Tylenol, baclofen, lorazepam, fish oil. Allergies: Penicillins. Physical exam: The patient has 4/5 strength with bilateral iliopsoas testing, and knee flexion / knee extension. She has 5/5 strength with dorsiflexion/plantar flexion. Her hand obstetrics scrub nurse, interossei testing, and wrist flexion/extension is all 3-4/5. Her biceps/triceps strength is actually a bit better than her hand obstetrics scrub nurse but I would still rate it as a 4+/5. She reports she has too much pain when attempting to raise her shoulders, and can not engage in deltoid/shoulder shrug testing. She ambulates with the assistance of a cane. (-) Alvarenga's, (-) clonus, (-) bilateral straight leg raise, (-) Lhermitte's. Imaging review: Diffuse spondylosis of the cervical spine. There is moderate central canal stenosis at C4-5, C5-6. There also appears to be anterior osteophyte bridging from C3-6. In addition to this there is moderate-severe bilateral foraminal stenosis at C5-6. There is no evidence of T2 signal change or myelomalacia. Impression: Gerardo is a pleasant 73-year-old female who comes in today with a chief complaint of neck pain, diffuse body pain, balance issues, and some problems with dexterity. She reports all of the symptoms began acutely back in July. She is being worked up by our colleagues in Neurology who diagnosed her with multiple sclerosis. I do not see any evidence of demyelinating lesions in the cervical spinal cord. In addition to this she does have varying levels of stenosis throughout the cervical spine, however she has no myelopathic reflexes on exam and no evidence of T2 signal change / myelomalacia on imaging. She has not yet exhausted conservative treatments, and her daughter who helps translate states that she does not want to have surgery at this time. I would like to send the patient for physical therapy, and have her follow up with our colleagues in Neurology. I do not believe that her current constellation of symptoms is solely related to an acute process in the cervical spine acquiring an immediate surgical intervention. The changes seen on her cervical imaging are likely chronic in nature. If the patients symptoms do continue to progress, and she develops additional numbness/tingling, worsening balance issues, or radicular pains down either arm I would recommend a repeat cervical MRI and we may re-evaluate the patient. Thank you for allowing us to care for your patient. The total time spent with this visit with this patient was 45 minutes reviewing history, physical exam, MRI imaging review, and implementation of treatment plan or further diagnostic testing John Olmstead MD,PhD [facility] Coding Level of Care Code New Pt Level 4 (91585) Diagnoses Cervical spinal stenosis M48.02
== END 2024-02-07 11:07 | disposition home or self-care (01) ==
PROVIDERS: PCP Internal Medicine; Referring Provider Psychiatry & Neurology Neurology; Visit Provider Physician Assistant
DX: M48.02 Spinal stenosis, cervical region (principal)
CPT/HCPCS: 99204

== ENCOUNTER → 2024-02-07 09:43 | Outpatient (BNVA) | payer OTHER, SELFPAY | PROVIDERS: PCP Internal Medicine; Visit Provider Physician Assistant | DX: M48.02 Spinal stenosis, cervical region (principal) | CPT/HCPCS: 99202 ==

== ENCOUNTER 2024-02-15 08:39 | Outpatient (AMB) | payer OTHER, SELFPAY ==
[2024-02-15 08:58] VITALS: BP 142/68; PULSE 71; BMI 20.8
--- NOTE | 2024-02-15 08:58 | MHC.OFFVIS ---
Vital Signs 02/15/24 08:58 Height 5 ft 2 in Weight 113 lb 8.609 oz BMI 20.8 BP 142/68 H Blood Pressure Location Lt brachial Position Sitting Pulse 71 Pulse Source Pulse Oximeter Intake Visit Reasons: Nontoxic single thyroid nodule/CONFIRMED Intake Note: Patient present today for [facility] follow up visit. Recreation Manager Required: Yes Recreation Manager Language: Real Estate Director Services: Recreation Manager Offered & Declined Accompanied by: Daughter Allergies pravastatin Allergy (Unknown, Verified 02/15/24 09:06) Unknown simvastatin Allergy (Unknown, Verified 02/15/24 09:06) Unknown metformin Adverse Reaction (Intermediate, Verified 02/15/24 09:06) Abdominal Pain Penicillins Adverse Reaction (Verified 02/15/24 09:06) Weakness Medication List - Last Reconciled 02/15/24 by Yakelin Lorenzo MD acetaminophen (Tylenol Extra Strength) 500 mg PO Q6H PRN blood pressure monitor (Blood Pressure Kit) As directed blood sugar diagnostic As directed check the blood sugar once a day ONE TOUCH blood-glucose meter (OneTouch Ultra2 Meter kit) As directed check the blood sugar once a day diclofenac sodium 1% (Voltaren Arthritis Pain) 4 grams topical QID lancets As directed check the blood sugar q.day lisinopril 5 mg PO DAILY 90 days lorazepam 1-2 tab orally 1 hour before the procedure PRN; omega-3 fatty acids (Fish Oil Concentrate) 1,000 mg PO DAILY [One touch Ultra test strips Use 1 test strip once a day] rosuvastatin 5 mg PO DAILY HPI Comments Details: 73 YO F who is seen for follow up of multinodular thyroid . Here with daughter Monik. Saw Dr. Rivera December 2023. HPI fro prior visit Was found to have thyroid nodules on cervical MRI incidentally in October 2023, then underwent thyroid ultrasound 12/14 showed multiple bilateral nodules, i reviewed the images myself which showed the right dominant 1.2 cm TIRADS 3 nodule and the dominant left inferior 2.9 cm which is TR5 with echogenic foci. Currently denies any dysphagia or hoarseness of voice. Denies sensation of swelling in the neck or difficulty breathing while lying flat. Denies any tenderness in the neck. Some intermittent choking when she eats. with big bites. Sometimes a forceful swallowing is required. Denies any palpitations, tremors, weight loss, frequent bowel movements. Denies any ocular complaints, blurred or double vision. Denies hair loss, dry skin, heat or cold intolerance, weight gain, confusion. She has chronic constipation. Denies any history of head or neck irradiation. Denies any family history of thyroid cancer. Daughter has hyperthyroidism No biopsy of nodules in the past. TSH normal from November 2023. Denies having ever used lithium, amiodarone or biotin supplements. Review of systems Constitutional: no fevers, chills HEENT: no changes in vision Cardiac: No chest pain, discomfort or palpitations. Pulmonary: No SOB Physical exam General: sitting comfortably in no acute distress HEENT: normocephalic/atraumatic, , moist oral mucosa Neck: supple, symmetrical,palapable 3 cm left lobe nodule , no dorsocervical or supraclavicular fat pads Cardiac: normal heart sounds Pulm: normal breath sounds B/L, no added breath sounds Abd: not distended, no tenderness Extremities: no edema, no signs of myxedema Thyroid US: 11/24/2023 FINDINGS: SIZE: Measurements of the thyroid lobes and nodules are given in sagittal, anteroposterior and transverse dimensions respectively. Right Thyroid Lobe: 6.4 x 2.5 x 2.8 cm, volume 23.2 mL. Parenchyma: The gland echotexture is heterogeneous. Thyroid vascularity is normal. Left Thyroid Lobe: 5.9 x 2.7 x 3.0 cm, volume 25.5 mL. Parenchyma: The gland echotexture is heterogeneous. Thyroid vascularity is normal. Isthmus: 0.3 cm in maximum AP dimension. Estimated total number of nodules greater than or equal to 1 cm: 3. Electrical Project Manager nodules are described as follows: 1. Location: Right superior. Size: 1.1 x 1.0 x 0.6 cm, volume 0.337 mL. Nodule characteristics: Composition: Solid (2). Echogenicity: Isoechoic (1). Shape: Not taller than wide (0). Margins: Smooth (0). Echogenic Foci: None (0). ACR TI-RADS total points: 3 ACR TI-RADS category: 3 2. Location: Right mid. Size: 0.8 x 0.4 x 0.5 cm, volume 0.082 mL. Nodule characteristics: Composition: Spongiform (0). Echogenicity: Anechoic (0). Shape: Not taller than wide (0). Margins: Smooth (0). Echogenic Foci: None (0). ACR TI-RADS total points: 0 ACR TI-RADS category: 1 3. Location: Right inferior. Size: 1.2 x 1.0 x 1.0 cm, volume 0.656 mL. Nodule characteristics: Composition: Solid (2). Echogenicity: Hyperechoic (1). Shape: Not taller than wide (0). Margins: Smooth (0). Echogenic Foci: None (0). ACR TI-RADS total points: 3 ACR TI-RADS category: 3 4. Location: Left inferior. Size: 2.7 x 2.9 x 2.1 cm, volume 8.4 mL. Nodule characteristics: Composition: Solid (2). Echogenicity: Hypoechoic (2). Shape: Not taller than wide (0). Margins: Lobulated (2). Echogenic Foci: None (0). ACR TI-RADS total points: 6 ACR TI-RADS category: 4 5. Location: Left mid. Size: 0.8 x 0.8 x 0.5 cm, volume 0.173 mL. Nodule characteristics: Composition: Solid/almost completely solid (2). Echogenicity: Hypoechoic (2). Shape: Not taller than wide (0). Margins: Smooth (0). Echogenic Foci: None (0). ACR TI-RADS total points: 4 ACR TI-RADS category: 4 NODES: No lymphadenopathy is seen in the tissue surrounding the thyroid gland. US/US thyroid IMPRESSION: Enlarged, heterogeneous multinodular thyroid gland. 2.7 cm left lower thyroid nodule TR4 thyroid nodule (less likely pseudonodule) meets criteria for biopsy. Fine-needle aspiration recommended. [facility] Medical History (Updated 02/15/24 @ 09:37 by Yakelin Lorenzo MD) Cervical spinal stenosis Multiple sclerosis involving brain stem Anxiety Seizure disorder Vitamin D deficiency Osteopenia Hypercholesterolemia Type 2 diabetes mellitus with hyperglycemia Surgical History History of tubal ligation Family History Father Hypertension Mother Cancer Brother Diabetes Social History Household Members: Children Household Members Other:: Daughter: Monik Housing: Apartment Do you presently have visiting nurse or other home services: No Alcohol intake: never Patient Tobacco Use Status: Former Tobacco user Tobacco use type: Cigarette Cigarettes Per Day: 1 Years Smoked: 5 e-Cigarette/Vaping Use: Never Used Second Hand Smoke Exposure: No service: No Current occupational status: retired Cognitive needs: No Hearing needs: No Vision needs: Yes Physical Exam Vital Signs: Last Vital Signs Pulse 71 02/15/24 08:58 BP 142/68 H 02/15/24 08:58 BMI result Body Mass Index 20.8 Results Reviewed Results Reviewed: Laboratory Tests 12/17/23 06:40 TSH 1.47 Free T4 0.95 US THYROID 12/14 i reviewed the images myself which showed the right dominant 1.2 cm TIRADS 3 nodule and the dominant left inferior 2.9 cm which is TR5 with echogenic foci. CLINICAL INFORMATION: Nontoxic single thyroid nodule. COMPARISON: None available. TECHNIQUE: Linear transducer grayscale and color Doppler examination with attention to the region of the thyroid. FINDINGS: SIZE: Measurements of the thyroid lobes and nodules are given in sagittal, anteroposterior and transverse dimensions respectively. Right Thyroid Lobe: 6.4 x 2.5 x 2.8 cm, volume 23.2 mL. Parenchyma: The gland echotexture is heterogeneous. Thyroid vascularity is normal. Left Thyroid Lobe: 5.9 x 2.7 x 3.0 cm, volume 25.5 mL. Parenchyma: The gland echotexture is heterogeneous. Thyroid vascularity is normal. Isthmus: 0.3 cm in maximum AP dimension. Estimated total number of nodules greater than or equal to 1 cm: 3. Electrical Project Manager nodules are described as follows: 1. Location: Right superior. Size: 1.1 x 1.0 x 0.6 cm, volume 0.337 mL. Nodule characteristics: Composition: Solid (2). Echogenicity: Isoechoic (1). Shape: Not taller than wide (0). Margins: Smooth (0). Echogenic Foci: None (0). ACR TI-RADS total points: 3 ACR TI-RADS category: 3 2. Location: Right mid. Size: 0.8 x 0.4 x 0.5 cm, volume 0.082 mL. Nodule characteristics: Composition: Spongiform (0). Echogenicity: Anechoic (0). Shape: Not taller than wide (0). Margins: Smooth (0). Echogenic Foci: None (0). ACR TI-RADS total points: 0 ACR TI-RADS category: 1 3. Location: Right inferior. Size: 1.2 x 1.0 x 1.0 cm, volume 0.656 mL. Nodule characteristics: Composition: Solid (2). Echogenicity: Hyperechoic (1). Shape: Not taller than wide (0). Margins: Smooth (0). Echogenic Foci: None (0). ACR TI-RADS total points: 3 ACR TI-RADS category: 3 4. Location: Left inferior. Size: 2.7 x 2.9 x 2.1 cm, volume 8.4 mL. Nodule characteristics: Composition: Solid (2). Echogenicity: Hypoechoic (2). Shape: Not taller than wide (0). Margins: Lobulated (2). Echogenic Foci: None (0). ACR TI-RADS total points: 6 ACR TI-RADS category: 4 5. Location: Left mid. Size: 0.8 x 0.8 x 0.5 cm, volume 0.173 mL. Nodule characteristics: Composition: Solid/almost completely solid (2). Echogenicity: Hypoechoic (2). Shape: Not taller than wide (0). Margins: Smooth (0). Echogenic Foci: None (0). ACR TI-RADS total points: 4 ACR TI-RADS category: 4 NODES: No lymphadenopathy is seen in the tissue surrounding the thyroid gland. US/US thyroid IMPRESSION: Enlarged, heterogeneous multinodular thyroid gland. 2.7 cm left lower thyroid nodule TR4 thyroid nodule (less likely pseudonodule) meets criteria for biopsy. Fine-needle aspiration recommended. This study was presented to [facility] November for interpretation. PSA staff will provide results to referring provider at this time. Assessment & Plan Assessment & Plan (1) Thyroid nodule: Code(s): E04.1 - Nontoxic single thyroid nodule Category: Medical Plan: Patient with no family history of thyroid cancer, with no personal history of head or neck radiation coming in today for follow up of multinodular thyroid. She does not have any significant compressive symptoms. Ultrasound of the thyroid November 2023 showed bilateral nodules with a right inferior dominant 1.2 cm nodule which is solid, hypoechoic, TR 3 category in the left inferior dominant 2.9 cm nodule which is solid, hypoechoic, has somewhat lobulated margins, punctate echogenic foci, TR 5 category. This nodule meets criteria for FNA and per DIANA this is high suspicion nodule with greater than 50% chance of malignancy. She is biochemically euthyroid. I explained that it is common to have thyroid nodules. About 95% of the time these nodules are benign. However if the nodule is > 1 cm in size or suspicious on ultrasound then a fine need aspiration biopsy is recommended. We discussed that a FNAB involves 4-5 passes with a small gauge needle and material obtained is sent off for cytology.If the cytopathology is benign then the nodule will be followed annually with repeat ultrasounds. However if it is suspicious or malignant, we will need to discuss further management. Indeterminate cytology can be further investigated with repeat FNA, genetic testing or empiric lobectomy. Malignant cytology is managed with either lobectomy or total thyroidectomy. We discussed briefly that thyroid cancer is, in most patients, an indolent disease that does not affect mortality. We will arrange for FNA at next available opening of the left inferior 2.9 cm nodule and patient will follow up with me in clinic thereafter for results and further decision making. Plan: -ordered FNA of the left inferior 2.9 cm nodule and follow up 1-2 weeks after biopsy to discuss results Plan I spent 30 minutes in reviewing the record, seeing the patient and documenting in the medical record. Orders: Orders US biopsy thyroid Today E04.1 - Nontoxic single thyroid nodule Coding Level of Care Code Est Pt Level 4 (86104) Diagnoses Thyroid nodule E04.1 Time Spent (min) 30
== END 2024-02-15 09:44 | disposition home or self-care (01) ==
PROVIDERS: PCP Internal Medicine; Visit Provider Student in an Organized Health Care Education/Training Program
DX: E04.1 Nontoxic single thyroid nodule (principal)
CPT/HCPCS: 99214

== ENCOUNTER → 2024-02-15 08:39 | Outpatient (BNVA) | payer OTHER, SELFPAY | PROVIDERS: PCP Internal Medicine; Visit Provider Student in an Organized Health Care Education/Training Program | DX: E04.1 Nontoxic single thyroid nodule (principal) | CPT/HCPCS: 99212 ==

== ENCOUNTER → 2024-03-15 10:24 | Outpatient (BNV) | payer OTHER, SELFPAY | PROVIDERS: PCP Internal Medicine; Visit Provider Student in an Organized Health Care Education/Training Program | DX: E04.1 Nontoxic single thyroid nodule (principal) | CPT/HCPCS: 10005 ==

== ENCOUNTER 2024-03-27 08:08 | Outpatient (AMB) | payer OTHER, SELFPAY ==
[2024-03-27 08:21] VITALS: BMI 21.2
--- NOTE | 2024-03-27 08:21 | A.OFFVIS_ITS ---
Vital Signs 03/27/24 08:21 Height 5 ft 2 in Weight 116 lb BMI 21.2 Intake Visit Reasons: Follow up Demyelinating disease Intake Note: patient presents for follow up Allergies pravastatin Allergy (Unknown, Verified 03/27/24 08:24) Unknown simvastatin Allergy (Unknown, Verified 03/27/24 08:24) Unknown metformin Adverse Reaction (Intermediate, Verified 03/27/24 08:24) Abdominal Pain Penicillins Adverse Reaction (Verified 03/27/24 08:24) Weakness Medication List - Last Reconciled 03/27/24 by Giulia Newton MD acetaminophen (Tylenol Extra Strength) 500 mg PO Q6H PRN blood pressure monitor (Blood Pressure Kit) As directed blood sugar diagnostic As directed check the blood sugar once a day ONE TOUCH blood-glucose meter (OneTouch Ultra2 Meter kit) As directed check the blood sugar once a day diclofenac sodium 1% (Voltaren Arthritis Pain) 4 grams topical QID lancets As directed check the blood sugar q.day lisinopril 5 mg PO DAILY 90 days lorazepam 1-2 tab orally 1 hour before the procedure PRN; omega-3 fatty acids (Fish Oil Concentrate) 1,000 mg PO DAILY [One touch Ultra test strips Use 1 test strip once a day] rosuvastatin 5 mg PO DAILY HPI Comments Details: 73 year old female, T2DM, managed with diet. She was prescribed Baclofen and symptoms worsened. She still has electrical shock like sensations through out the day. She still has weakness in her hands and parasthesias, can not carry anything due to cramping in hands. L. Leg muscles spasm, however better without the medication when she straightens and lifts her legs up. Cervicogenic headaches have lessened to once a week. Neuro-surgery recommended PT completed one session, has 3 more to finish, not a good candidate for surgery. Denies Vision changes, dizziness, she has cataracts. She feels unbalanced and cant perform extension, flexion or lateral movements of the neck. [facility] Medical History (Updated 03/20/24 @ 18:20 by Lucia Curry MD) Cervical spinal stenosis Multiple sclerosis involving brain stem Anxiety Seizure disorder Vitamin D deficiency Osteopenia Hypercholesterolemia Type 2 diabetes mellitus with hyperglycemia Surgical History (Updated 03/27/24 @ 08:24 by AURE Maya) S/P thyroid biopsy History of tubal ligation Family History Father Hypertension Mother Cancer Brother Diabetes Social History Household Members: Children Household Members Other:: Daughter: Monik Housing: Apartment Do you presently have visiting nurse or other home services: No Alcohol intake: never Patient Tobacco Use Status: Former Tobacco user Tobacco use type: Cigarette Cigarettes Per Day: 1 Years Smoked: 5 e-Cigarette/Vaping Use: Never Used Second Hand Smoke Exposure: No service: No Current occupational status: retired Cognitive needs: No Hearing needs: No Vision needs: Yes Review of Systems Const Reports as per HPI Physical Exam Vital Signs: BMI result Body Mass Index 21.2 Const General: cooperative and comfortable Nutritional Appearance: thin Orientation/consciousness: patient oriented x3 Eyes Pupils: Equal, round and reactive pupils present and Pupils normal by confrontation Neck Neck: Yes other (limited ROM/ flexion and extension) Resp Effort & Inspection: normal respiratory effort and able to speak in complete sentences Neuro General: patient oriented x3, deep tendon reflexes 2+ bilaterally and other Cranial nerves: Yes Equal, round and reactive pupils present Cognition (Neuro): normal cognition Gait exam (Neuro): Assisted gait required (uses the wall with right hand to walk, cane in left hand small steps) Gait assisted method: other and Assistive device used Motor exam (neuro): 5/5 motor strength present throughout Deep tendon reflexes (DTR's): Right triceps reflex intensity grade: 2+, Left triceps reflex intensity grade: 2+, Rt Biceps (C5, C6): 2+, Left biceps reflex intensity grade: 2+, Right brachioradialis reflex intensity grade: 2+, Left brachioradialis reflex intensity grade: 2+, Right patellar reflex intensity grade: 2+, Left patellar reflex intensity grade: 2+, Right ankle reflex intensity grade: 2+ and Left ankle reflex intensity grade: 2+ Coordination: [id number] test normal Psych Appearance: grossly normal Speech and movement: Slowed movement present (Neuro) Affect: normal affect Attitude: cooperative Insight: Good insight present (Psych) Assessment & Plan Assessment & Plan (1) Cervical spinal stenosis: Comment: multilevel moderate Code(s): M48.02 - Spinal stenosis, cervical region Category: Medical Plan: Continue working with PT, to improve gait balance and strength. Gabapentin 100mg at bedtime for sensation of electrical shock like sensations, take your time rising from the bed at night time. (2) Multiple sclerosis involving brain stem: Comment: lesion in right dorsal roel Code(s): G35 - Multiple sclerosis Category: Medical Plan: MRI Lesion in the R. Dorsal Roel area. Medications: New gabapentin 100 mg PO BEDTIME 30 caps 2RF Coding Level of Care Code Est Pt Level 4 (04002) Complex EM visit Add On G2211 Diagnoses Cervical spinal stenosis M48.02 Multiple sclerosis involving brain stem G35
== END 2024-03-27 08:55 | disposition home or self-care (01) ==
LOC: HO.HSMS 08:08
PROVIDERS: PCP Internal Medicine; Visit Provider Psychiatry & Neurology Neurology
DX: M48.02 Spinal stenosis, cervical region (principal); G35 Multiple sclerosis
CPT/HCPCS: 99214; G2211

== ENCOUNTER → 2024-03-27 08:08 | Outpatient (BNVA) | payer OTHER, SELFPAY | PROVIDERS: PCP Internal Medicine; Visit Provider Psychiatry & Neurology Neurology | DX: G37.9 Demyelinating disease of central nervous system, unspecified (principal); M48.02 Spinal stenosis, cervical region; G35 Multiple sclerosis | CPT/HCPCS: 99212 ==

== ENCOUNTER 2024-03-30 08:29 | Outpatient (AMB) | payer OTHER, SELFPAY ==
[2024-03-30 08:51] VITALS: BP 124/64; PULSE 84; BMI 21.2
--- NOTE | 2024-03-30 08:51 | MHC.OFFVIS ---
Vital Signs 03/30/24 08:51 Height 5 ft 2 in Weight 116 lb 2.938 oz BMI 21.2 BP 124/64 Blood Pressure Location Lt brachial Position Sitting Pulse 84 Pulse Source Pulse Oximeter Intake Visit Reasons: Biopsy follow up Intake Note: Patient present today for biopsy results. Technical Staff Assistant Required: Yes Technical Staff Assistant Language: Pattern Mechanic Services: Technical Staff Assistant Offered & Declined Accompanied by: Daughter Allergies pravastatin Allergy (Unknown, Verified 03/30/24 09:00) Unknown simvastatin Allergy (Unknown, Verified 03/30/24 09:00) Unknown metformin Adverse Reaction (Intermediate, Verified 03/30/24 09:00) Abdominal Pain Penicillins Adverse Reaction (Verified 03/30/24 09:00) Weakness HPI Comments Details: 73 YO F who is seen for follow up of multinodular thyroid . Underwent biopsy of the left inferior 2.9 cm nodule on 03/15/24, here today to discuss results. Here with daughter Monik. HPI from prior visit Was found to have thyroid nodules on cervical MRI incidentally in October 2023, then underwent thyroid ultrasound 12/14 showed multiple bilateral nodules, i reviewed the images myself which showed the right dominant 1.2 cm TIRADS 3 nodule and the dominant left inferior 2.9 cm which is TR5 with echogenic foci. Underwent biopsy of the left inferior 2.9 cm nodule on 03/15/2024, which came back as AUS ([place] category 3), with nuclear irregularities, Afirma had low RNA yield so no results obtained. Currently denies any dysphagia or hoarseness of voice. Denies sensation of swelling in the neck or difficulty breathing while lying flat. Denies any tenderness in the neck. Some intermittent choking when she eats. with big bites. Sometimes a forceful swallowing is required. Denies any palpitations, tremors, weight loss, frequent bowel movements. Denies any ocular complaints, blurred or double vision. Denies hair loss, dry skin, heat or cold intolerance, weight gain, confusion. She has chronic constipation. Denies any history of head or neck irradiation. Denies any family history of thyroid cancer. Daughter has hyperthyroidism TSH normal from November 2023. Denies having ever used lithium, amiodarone or biotin supplements. Review of systems Constitutional: no fevers, chills HEENT: no changes in vision Cardiac: No chest pain, discomfort or palpitations. Pulmonary: No SOB Physical exam General: sitting comfortably in no acute distress HEENT: normocephalic/atraumatic, , moist oral mucosa Neck: supple, symmetrical,palapable 3 cm left lobe nodule , no dorsocervical or supraclavicular fat pads Cardiac: normal heart sounds Pulm: normal breath sounds B/L, no added breath sounds Abd: not distended, no tenderness Extremities: no edema, no signs of myxedema Laboratory Tests 12/17/23 06:40 TSH 1.47 Free T4 0.95 US THYROID 12/14 i reviewed the images myself which showed the right dominant 1.2 cm TIRADS 3 nodule and the dominant left inferior 2.9 cm which is TR5 with echogenic foci. CLINICAL INFORMATION: Nontoxic single thyroid nodule. COMPARISON: None available. TECHNIQUE: Linear transducer grayscale and color Doppler examination with attention to the region of the thyroid. FINDINGS: SIZE: Measurements of the thyroid lobes and nodules are given in sagittal, anteroposterior and transverse dimensions respectively. Right Thyroid Lobe: 6.4 x 2.5 x 2.8 cm, volume 23.2 mL. Parenchyma: The gland echotexture is heterogeneous. Thyroid vascularity is normal. Left Thyroid Lobe: 5.9 x 2.7 x 3.0 cm, volume 25.5 mL. Parenchyma: The gland echotexture is heterogeneous. Thyroid vascularity is normal. Isthmus: 0.3 cm in maximum AP dimension. Estimated total number of nodules greater than or equal to 1 cm: 3. Intermediate Frame Tender nodules are described as follows: 1. Location: Right superior. Size: 1.1 x 1.0 x 0.6 cm, volume 0.337 mL. Nodule characteristics: Composition: Solid (2). Echogenicity: Isoechoic (1). Shape: Not taller than wide (0). Margins: Smooth (0). Echogenic Foci: None (0). ACR TI-RADS total points: 3 ACR TI-RADS category: 3 2. Location: Right mid. Size: 0.8 x 0.4 x 0.5 cm, volume 0.082 mL. Nodule characteristics: Composition: Spongiform (0). Echogenicity: Anechoic (0). Shape: Not taller than wide (0). Margins: Smooth (0). Echogenic Foci: None (0). ACR TI-RADS total points: 0 ACR TI-RADS category: 1 3. Location: Right inferior. Size: 1.2 x 1.0 x 1.0 cm, volume 0.656 mL. Nodule characteristics: Composition: Solid (2). Echogenicity: Hyperechoic (1). Shape: Not taller than wide (0). Margins: Smooth (0). Echogenic Foci: None (0). ACR TI-RADS total points: 3 ACR TI-RADS category: 3 4. Location: Left inferior. Size: 2.7 x 2.9 x 2.1 cm, volume 8.4 mL. Nodule characteristics: Composition: Solid (2). Echogenicity: Hypoechoic (2). Shape: Not taller than wide (0). Margins: Lobulated (2). Echogenic Foci: None (0). ACR TI-RADS total points: 6 ACR TI-RADS category: 4 5. Location: Left mid. Size: 0.8 x 0.8 x 0.5 cm, volume 0.173 mL. Nodule characteristics: Composition: Solid/almost completely solid (2). Echogenicity: Hypoechoic (2). Shape: Not taller than wide (0). Margins: Smooth (0). Echogenic Foci: None (0). ACR TI-RADS total points: 4 ACR TI-RADS category: 4 NODES: No lymphadenopathy is seen in the tissue surrounding the thyroid gland. US/US thyroid IMPRESSION: Enlarged, heterogeneous multinodular thyroid gland. 2.7 cm left lower thyroid nodule TR4 thyroid nodule (less likely pseudonodule) meets criteria for biopsy. Fine-needle aspiration recommended. This study was presented to ri November for interpretation. [facility] staff will provide results to referring provider at this time. [facility] Medical History (Updated 03/20/24 @ 18:20 by Lucia Curry MD) Cervical spinal stenosis Multiple sclerosis involving brain stem Anxiety Seizure disorder Vitamin D deficiency Osteopenia Hypercholesterolemia Type 2 diabetes mellitus with hyperglycemia Surgical History S/P thyroid biopsy History of tubal ligation Family History Father Hypertension Mother Cancer Brother Diabetes Social History Household Members: Children Household Members Other:: Daughter: Monik Housing: Apartment Do you presently have visiting nurse or other home services: No Alcohol intake: never Patient Tobacco Use Status: Former Tobacco user Tobacco use type: Cigarette Cigarettes Per Day: 1 Years Smoked: 5 e-Cigarette/Vaping Use: Never Used Second Hand Smoke Exposure: No service: No Current occupational status: retired Cognitive needs: No Hearing needs: No Vision needs: Yes Physical Exam Vital Signs: Last Vital Signs Pulse 84 03/30/24 08:51 BP 124/64 03/30/24 08:51 BMI result Body Mass Index 21.2 Assessment & Plan Assessment & Plan (1) Thyroid nodule: Comment: 03/12/2024Thyroid, left lower lobe nodule, fine needle aspiration: Atypia of undetermined significance ([place] category III Code(s): E04.1 - Nontoxic single thyroid nodule Category: Medical Plan: Patient with no family history of thyroid cancer, with no personal history of head or neck radiation coming in today for follow up of multinodular thyroid. She does not have any significant compressive symptoms. Ultrasound of the thyroid November 2023 showed bilateral nodules with a right inferior dominant 1.2 cm nodule which is solid, hypoechoic, TR 3 category in the left inferior dominant 2.9 cm nodule which is solid, hypoechoic, has somewhat lobulated margins, punctate echogenic foci, TR 5 category. This nodule met criteria for FNA and per DIANA this is high suspicion nodule with greater than 50% chance of malignancy.Underwent biopsy of the left inferior 2.9 cm nodule on 03/15/2024, which came back as AUS ([place] category 3), with nuclear irregularities, Afirma had low RNA yield so no results obtained. She is biochemically euthyroid. I explained to the patient that AUS results translates to 6-18% risk of malignancy in a nodule. Given Afirma could not be performed due to low RNA yield we will have to repeat the biopsy. I will schedule her for repeat biopsy in around 3 months. We will arrange for FNA at next available opening of the left inferior 2.9 cm nodule and patient will follow up with me in clinic thereafter for results and further decision making. Plan: -ordered repeat FNA of the left inferior 2.9 cm nodule and follow up 1-2 weeks after biopsy to discuss results Plan see above Orders: Orders US biopsy thyroid Today E04.1 - Nontoxic single thyroid nodule Coding Level of Care Code Est Pt Level 3 (29879) Diagnoses Thyroid nodule E04.1
== END 2024-03-30 09:27 | disposition home or self-care (01) ==
LOC: HO.ENCR 08:30
PROVIDERS: PCP Internal Medicine; Visit Provider Student in an Organized Health Care Education/Training Program
DX: E04.1 Nontoxic single thyroid nodule (principal)
CPT/HCPCS: 99213

== ENCOUNTER → 2024-03-30 08:29 | Outpatient (BNVA) | payer OTHER, SELFPAY | PROVIDERS: PCP Internal Medicine; Visit Provider Student in an Organized Health Care Education/Training Program | DX: E04.1 Nontoxic single thyroid nodule (principal) | CPT/HCPCS: 99212 ==

== ENCOUNTER 2024-04-11 10:56 | Outpatient (RCR) | payer OTHER, SELFPAY ==
--- NOTE | 2024-03-23 09:14 | MHC.PT.EP ---
[facility] [place] Office [place] Office [place] Office [address] Chris Frances [address] [phone] F: [phone] F: [phone] F: [phone] F: [phone] Physical Therapy Plan of Care Date of Evaluation: 03/21/24 Date of Surgery: N/A Diagnosis: cervical spinal stenosis ? MS (RL) Assessment: pt is a 73 y/o male presenting to physical therapy w/ referring diagnosis of cervical spinal stenosis. pt has concomitant diagnosis of MS as of July 2023. Not currently medicated d/t side effects from trial. She refuses to move multiple parts of her body d/t pain. I do not feel pt is going to make substantial improvements w/ PT alone. She will require some medication intervention to assist. Impairments include pain, decreased range of motion, decreased strength, impaired functional mobility, impaired postural awareness, and altered ambulation mechanics. pt is a poor candidate for skilled PT due to age, potential remediation of impairments, typical disease/condition progression and prognosis, comorbidities, and motivation. pt would benefit from skilled PT intervention to provide a tailored strengthening and stretching exercise program, functional training, gait training, postural re-training, neuromuscular re-education, modalities as needed for pain, equipment safety demonstration. Frequency and Duration: The patient will be seen 1x/wk for 3 wks Short Term Goals: pt will perform x10 smooth pursuits vertical and horizontal pursuits w/ 50% accuracy for ADLs. Long-Term Goals: pt will perform cervical AROM to 10* in all planes for scanning her environment for safety w/ ambulation. Treatment Plan: Modalities to reduce pain, spasms and effusion. Manual therapy to restore motion and function. Therapeutic exercise to improve strength and flexibility. Neuromuscular re-education for posture and balance. Therapeutic activities to return to functional activities of daily living. Electronically signed by: Radha Colón PT, DPT Please sign and return to therapist. Thank you for your referral.
--- NOTE | 2024-04-11 11:56 | MHC.PT.DC ---
[facility] [place] Office [place] Office [place] Office [address] Chris Frances 140 [facility] [phone] F: [phone] F: [phone] F: [phone] F: [phone] Physical Therapy Discharge Report Diagnosis: cervical spinal stenosis ? MS (RL) Date of Surgery: N/A Date of Evaluation: 03/21/24 Date of Discharge: 04/11/24 Treatments to Date: 4 Cancellations to Date: 0 No Shows to Date: 0 Discharge Status: Improved Function Recommend MD Follow-up Discharge Summary: The patient overall was reporting an improvement in her neck pain; however, I do not feel it was as a result of any physical therapy intervention. We trialed some gentle heat and gentle cryotherapy as well as very gentle soft tissue work to cervical musculature. She could not tolerate any increase in intensity of physical therapy. She is very self-limiting in her mobility as a result of current like pain that radiates down her spine with certain movements. The patient is also still currently being worked up for multiple sclerosis and questionable thyroid cancer. At this time, I do not feel physical therapy is an appropriate treatment for this patient. She has a routine at home including participating in a meditation-like activity as well as self-cryotherapy. She is discharged from this physical therapy Electronically signed by: Radha Colón PT, DPT Please sign and return to therapist. Thank you for your referral.
== END 2024-04-11 11:56 | disposition home or self-care (01) ==
LOC: HO.PT 10:56
PROVIDERS: PCP Internal Medicine; Visit Provider Psychiatry & Neurology Neurology
DX: M48.02 Spinal stenosis, cervical region (principal)
CPT/HCPCS: 97140; 97162

== ENCOUNTER 2024-04-27 10:32 | Outpatient (AMB) | payer OTHER, SELFPAY ==
[2024-04-27 10:34] VITALS: BP 102/62; PULSE 69; O2SAT 97; BMI 21.0
--- NOTE | 2024-04-27 10:34 | MHC.PC.OV ---
Vital Signs 04/27/24 10:34 Height 5 ft 2 in Weight 115 lb BMI 21.0 BP 102/62 Blood Pressure Location Lt brachial Position Sitting Pulse 69 Pulse Source Pulse Oximeter Pulse Oximetry (%) 97 Oxygen Delivery Method Room Air Intake Visit Reasons: 3mth f/u Allergies pravastatin Allergy (Unknown, Verified 04/27/24 10:35) Unknown simvastatin Allergy (Unknown, Verified 04/27/24 10:35) Unknown metformin Adverse Reaction (Intermediate, Verified 04/27/24 10:35) Abdominal Pain Penicillins Adverse Reaction (Verified 04/27/24 10:35) Weakness Tobacco use date assessed: 04/27/24 Fall risk assessment: No Falls in past year Last assessed Fall Risk: 04/27/24 Dental Screening Dental Screen Date: 04/27/24 Did you have a dental visit in the last 12 months?: Yes Did you have a dental problem in the last 6 months where you did not have access to dental care?: No Was dental information given to patient?: Patient has dentist HPI 3mth f/u HPI Details The patient is a 73-year-old female presenting with concerns regarding potential multiple sclerosis and cervical spinal stenosis. She was most recently evaluated for these conditions on January 30, during which her gait and balance issues were assessed. The neurology team suggested that these symptoms were linked to a pontine lesion and cervical spinal stenosis with moderate multilevel involvement. A prior MRI with gadolinium revealed an enhancing infratentorial lesion suggestive of multiple sclerosis. Although her cerebrospinal fluid analysis was negative, the neurology team advised initiating Obagio to manage symptoms. Additionally, gabapentin 100 mg at bedtime was prescribed. The patient reported ineffectiveness of previous treatments for her symptoms and noted increasing severity of bodily sensations. Neurology also recommended an MRI of the lumbar spine for further evaluation. The patient underwent endocrinology evaluation for a multinodular thyroid on March 30, following a biopsy in February 2024, which showed Erbacon category 3 nuclear irregularities. The risk of malignancy was estimated at 6-18%, and a repeat biopsy was advised. The patient's most recent lab work on December 16 showed normal blood count, renal and liver function, A1c of 6.1, LDL of 59, but low vitamin D at 23.9. - General: Denies symptoms. - Neurological: Denies worsening symptoms. - Respiratory: Denies shortness of breath. [facility] Medical History (Updated 12/05/24 @ 10:53 by Lucia Curry MD) Cervical spinal stenosis Multiple sclerosis involving brain stem Anxiety Seizure disorder Vitamin D deficiency Osteopenia Hypercholesterolemia Type 2 diabetes mellitus with hyperglycemia Surgical History S/P thyroid biopsy History of tubal ligation Family History Father Hypertension Mother Cancer Brother Diabetes Social History Household Members: Children Household Members Other:: Daughter: Monik Housing: Apartment Do you presently have visiting nurse or other home services: No Alcohol intake: never Patient Tobacco Use Status: Former Tobacco user Tobacco use type: Cigarette Cigarettes Per Day: 1 Years Smoked: 5 e-Cigarette/Vaping Use: Never Used Second Hand Smoke Exposure: No service: No Current occupational status: retired Cognitive needs: Yes Hearing needs: No Vision needs: Yes Questionnaire PHQ-9 Over the last 2 weeks, how often have you been bothered by any of the following problems? 1. Little interest or pleasure in doing things: not at all (Son two months ago) 2. Feeling down, depressed, or hopeless: not at all 3. Trouble falling or staying asleep, or sleeping too much: not at all 4. Feeling tired or having little energy: not at all 5. Poor appetite or overeating: not at all 6. Feeling bad about yourself - or that you are a failure or have let yourself or your family down: not at all 7. Trouble concentrating on things, such as reading the newspaper or watching television: not at all 8. Moving or speaking so slowly that other people could have noticed. Or the opposite - being so fidgety or restless that you have been moving around a lot more than usual: not at all 9. Thoughts that you would be better off or of hurting yourself in some way: not at all Total score: 0 Depression Screening Interpretation: Negative Depression Screening Done: Yes 70341 - PHQ-9 Billing: Yes Source: Developed by Drs. Roque Engel, Regine Lenz, Sharan Ervin and colleagues, with an educational armando from [employer]. Thrive Questionnaire Date Thrive assessed: 04/27/24 I am a: Patient What is your living situation today?: I have a steady place to live Within the past 12 months, did the food you bought not last and you didn't have the money to get more?: Never true Within the past 12 months, did you worry whether your food would run out before you got money to buy more?: Never true Do you have trouble paying for medicines?: No Do you have trouble getting transportation to medical appointments?: No Do you have trouble paying your heating and electricity bill?: No Do you have trouble taking care of your child, family member or friend?: No Do you have trouble with day-to-day activities such as bathing, preparing meals, shopping, managing finances, etc.?: No Are you currently unemployed and looking for a job?: No Are you interested in more education?: No Currently or been in a relationship where the following occur: No concerns reported THRIVE Score: 0 AUDIT C Alcohol Use Questionnaire (AUDIT-C) 1. How often do you have a drink containing alcohol?: Never 3. How often do you have six or more drinks on one occasion?: Never Total Score: 0 Score Reviewed/Action Taken: No LAZARUS-7 AMB Questionnaire LAZARUS-7 Date LAZARUS - 7 assessed: 04/27/24 Feeling nervous, anxious, or on edge: 0 = Not at all Not being able to stop or control worryin = Not at all Worrying too much about different things: 0 = Not at all Trouble relaxin = Not at all Being so restless that it is hard to sit still: 0 = Not at all Becoming easily annoyed or irritable: 0 = Not at all Feeling afraid as if something awful might happen: 0 = Not at all Total LAZARUS-7 score (0-4 normal; 5-9 mild; 10-14 moderate; 15-21 severe): 0 Source: Developed by Drs. Roque Engel, Regine Lenz, Sharan Ervin and colleagues, with an educational armando from [employer]. Physical exam (Primary Care) Vital Signs: Last Vital Signs Pulse 69 04/27/24 10:34 BP 102/62 04/27/24 10:34 Pulse Ox 91 L 04/27/24 10:34 Oxygen Delivery Method Room Air 04/27/24 10:34 BMI result Body Mass Index 21.0 Tobacco/Smoking Status: Tobacco use Status Tobacco use date assessed 04/27/24 04/27/24 10:36 Patient Tobacco Use Status Former Tobacco user 04/27/24 10:36 Tobacco use type Cigarette 04/27/24 10:36 e-Cigarette/Vaping Use Never Used 04/27/24 10:36 PHQ-9: PHQ-9 Score PHQ-9: Total score 0 04/27/24 10:50 Depression Screening Interpretation: Negative Thrive Assessment: Date of Thrive Assessment Date Thrive assessed 04/27/24 04/27/24 10:36 Currently or been in a relationship where the following occur: No concerns reported Const General: alert; No acute distress Eyes Conjunctivae: conjunctivae normal Resp Auscultation: clear to auscultation bilaterally Cardio Rate: regular rate Rhythm: regular rhythm GI Inspection: Yes normal to inspection Extrem General: Yes normal to inspection and No edema Results AMB Hemoglobin A1c AMB Hemoglobin A1c 5.9 % Last Edit by Nilda Best CMA on 04/27/24 10:54 Coding Level of Care Code Est Pt Level 4 (43603) Complex EM visit Add On G2211 Diagnoses Type 2 diabetes mellitus with hyperglycemia, without long-term current use of insulin E11.65 Diabetes mellitus termite exterminator helper insulin use: without mcc use Hypercholesterolemia E78.00 Osteopenia of multiple sites M85.89 Osteopenia location: multiple sites Generalized anxiety disorder F41.1 Primary hypertension I10 Hypertension type: primary hypertension Thyroid nodule E04.1 Multiple sclerosis involving brain stem G35 Cervical spinal stenosis M48.02 Additional Codes PHQ-9 - 20796 - PHQ-9 Billing: Yes ([id number]) Assessment & Plan Assessment & Plan (1) Type 2 diabetes mellitus with hyperglycemia: Comment: EYE and lasik Code(s): E11.65 - Type 2 diabetes mellitus with hyperglycemia Category: Medical Qualifiers: Diabetes mellitus termite exterminator helper insulin use: without termite exterminator helper use Qualified Code(s): E11.65 - Type 2 diabetes mellitus with hyperglycemia Plan: Decrease the amount of carbohydrate intake, pasta, bread, rice and potatoes are all sugar and that is aside from all the sweet stuff, remember that fruits are good but they are Sweet also. Patient on diet control (2) Hypercholesterolemia: Code(s): E78.00 - Pure hypercholesterolemia, unspecified Category: Medical Plan: Avoid fried foods, chicken skin, eggs, butter margarine, pastries and meat. Be it pork or beef they have a lot of cholesterol LDL goal of less than 100 and triglyceride of less than 150 on rosuvastatin 5 mg once a day (3) Osteopenia: Comment: 2014 chronic steroid treatment, November Code(s): M85.80 - Other specified disorders of bone density and structure, unspecified site Category: Medical Qualifiers: Osteopenia location: multiple sites Qualified Code(s): M85.89 - Other specified disorders of bone density and structure, multiple sites Plan: Patient is reminded about bone density discussed about calcium and vitamin-D (4) Generalized anxiety disorder: Code(s): F41.1 - Generalized anxiety disorder Category: Medical Plan: Continue with present medication as needed (5) Hypertension: Code(s): I10 - Essential (primary) hypertension Category: Medical Qualifiers: Hypertension type: primary hypertension Qualified Code(s): I10 - Essential (primary) hypertension Plan: Continue with lisinopril 5 mg once a day (6) Thyroid nodule: Comment: 03/12/2024Thyroid, left lower lobe nodule, fine needle aspiration: Atypia of undetermined significance (Erbacon category III Code(s): E04.1 - Nontoxic single thyroid nodule Category: Medical Plan: Patient is being followed up by Endocrinology and planned repeat thyroid biopsy due to high risk. (7) Multiple sclerosis involving brain stem: Comment: lesion in right dorsal roel Code(s): G35 - Multiple sclerosis Category: Medical Plan: Patient has met with Neurology and discussed about medications (8) Cervical spinal stenosis: Comment: multilevel moderate Code(s): M48.02 - Spinal stenosis, cervical region Category: Medical Plan: Patient has met with the neurosurgeon and planned physical therapy Plan - Multiple Sclerosis: Continue gabapentin at 100 mg at bedtime. Obtain a repeat MRI with gadolinium to monitor the pontine lesion and assess for multiple sclerosis progression. - Multinodular Thyroid: Advise a repeat biopsy in three months due to Erbacon category 3 classification and the associated risk of malignancy. - Cervical Spinal Stenosis: Continue physical therapy as previously advised. - Vitamin D Deficiency: Ensure adequate intake and consider supplementation to address low levels. - Diabetes and Hypercholesterolemia: No adjustments needed at present; continue monitoring as current management appears effective. I discussed with the patient the suspected diagnosis of multiple sclerosis, emphasizing the potential benefits and risks of commencing Obagio, particularly in relation to her current neurological symptoms. We reviewed the importance of ongoing MRI monitoring, specifically for the pontine lesion. The necessity of a repeat thyroid biopsy due to the Erbacon category 3 finding was explained, noting the 6-18% risk estimate for malignancy. We also reviewed her recent lab results, including adequate management of diabetes and hypercholesterolemia. I addressed her request for accommodations, outlining the process and providing a letter for housing to aid in her application for a lower-level accommodation. - Take gabapentin 100 mg at bedtime as prescribed. - patient is not able to tolerate the medication. multiple sclerosis management. - Schedule and attend recommended MRIs to monitor neurological conditions. - Follow endocrinology's recommendation for a repeat thyroid biopsy in three months. - Continue physical therapy for cervical spinal stenosis. - Ensure adequate intake of vitamin D. - Maintain current diet and medication regimen for diabetes and hypercholesterolemia. - Follow up with housing to pursue lower-level accommodation using provided letter. - Contact the office with any new symptoms or concerns. Letter printed Orders: Orders Comprehensive Met. Panel 5 Months E11.65 - Type 2 diabetes mellitus with hyperglycemia Free T4 (Free Thyroxine) 5 Months E11.65 - Type 2 diabetes mellitus with hyperglycemia Hemoglobin A1c 5 Months E11.65 - Type 2 diabetes mellitus with hyperglycemia AMB Hemoglobin A1c Today Z13.9 - Encounter for screening, unspecified Complete Blood Count Auto Diff 5 Months E11.65 - Type 2 diabetes mellitus with hyperglycemia Lipid Panel 5 Months E11.65 - Type 2 diabetes mellitus with hyperglycemia, E78.00 - Pure hypercholesterolemia, unspecified Thyroid Stimulating Hormone 5 Months E11.65 - Type 2 diabetes mellitus with hyperglycemia Vitamin B12 and Folate 5 Months E11.65 - Type 2 diabetes mellitus with hyperglycemia Vitamin D 25-OH Total 5 Months E11.65 - Type 2 diabetes mellitus with hyperglycemia Microalbumin, Random (w Creat) 5 Months E11.65 - Type 2 diabetes mellitus with hyperglycemia Creatinine Urine 5 Months E11.65 - Type 2 diabetes mellitus with hyperglycemia Medications: Refilled rosuvastatin 5 mg PO DAILY 90 tabs 3RF E78.00 - Pure hypercholesterolemia, unspecified
== END 2024-04-27 11:13 | disposition home or self-care (01) ==
PROVIDERS: PCP Internal Medicine; Visit Provider Internal Medicine
DX: E11.65 Type 2 diabetes mellitus with hyperglycemia (principal); G35 Multiple sclerosis; F41.1 Generalized anxiety disorder; E78.00 Pure hypercholesterolemia, unspecified; M85.89 Other specified disorders of bone density and structure, multiple sites; I10 Essential (primary) hypertension; E04.1 Nontoxic single thyroid nodule; M48.02 Spinal stenosis, cervical region

== ENCOUNTER → 2024-04-27 10:32 | Outpatient (BNVA) | payer OTHER, SELFPAY | PROVIDERS: PCP Internal Medicine; Visit Provider Internal Medicine | DX: E11.65 Type 2 diabetes mellitus with hyperglycemia (principal); E78.00 Pure hypercholesterolemia, unspecified; F41.1 Generalized anxiety disorder; M85.89 Other specified disorders of bone density and structure, multiple sites; I10 Essential (primary) hypertension; E04.1 Nontoxic single thyroid nodule; G35 Multiple sclerosis; M48.02 Spinal stenosis, cervical region | CPT/HCPCS: 83036; 96127; 99212 ==

== ENCOUNTER 2024-05-30 08:37 | Outpatient (AMB) | payer OTHER, SELFPAY ==
--- NOTE | 2024-05-30 08:51 | MHC.OFFVIS ---
Vital Signs 05/30/24 08:53 Height 5 ft 2 in Weight 111 lb BMI 20.3 BP 130/72 Blood Pressure Location Rt brachial Position Sitting Pulse 88 Pulse Source Pulse Oximeter Pulse Oximetry (%) 100 Oxygen Delivery Method Room Air Intake Visit Reasons: Follow up Demyelinating disease Patient Financial Advocate Required: Yes Patient Financial Advocate Services: Patient Financial Advocate Offered & Declined (Daughter will interperate) Accompanied by: Mother Allergies pravastatin Allergy (Unknown, Verified 05/30/24 08:56) Unknown simvastatin Allergy (Unknown, Verified 05/30/24 08:56) Unknown metformin Adverse Reaction (Intermediate, Verified 05/30/24 08:56) Abdominal Pain Penicillins Adverse Reaction (Verified 05/30/24 08:56) Weakness HPI Comments Details: 73 year old female, T2DM, managed with diet. She was prescribed Baclofen, she could not tolerate it. She still has electrical shock like sensations through out the night now. She still has weakness in her hands and parasthesias, can not carry anything due to cramping in hands. L. Leg muscles spasm, however better without the medication when she straightens and lifts her legs up. Cervicogenic headaches only when she moves her head laterally or on extension or flexion. She completed one session of PT, and feels she can not tolerate it at the moment, so she will continue to exercise as needed at home. She is not a good candidate for surgery. Denies vision changes, dizziness, she has cataracts. She feels unbalanced when she walks, she can not focus on the path in front of her and use her walker simultaneously, and so she holds on to her daugher and uses a cane to walk because she feels more secure. She will f/u after Thyroid Biopsy of L. Nodule. Diet, sleep and mood is better. [facility] Medical History Cervical spinal stenosis Multiple sclerosis involving brain stem Anxiety Seizure disorder Vitamin D deficiency Osteopenia Hypercholesterolemia Type 2 diabetes mellitus with hyperglycemia Surgical History S/P thyroid biopsy History of tubal ligation Family History Father Hypertension Mother Cancer Brother Diabetes Social History Household Members: Children Household Members Other:: Daughter: Monik Housing: Apartment Do you presently have visiting nurse or other home services: No Alcohol intake: never Patient Tobacco Use Status: Former Tobacco user Tobacco use type: Cigarette Cigarettes Per Day: 1 Years Smoked: 5 e-Cigarette/Vaping Use: Never Used Second Hand Smoke Exposure: No service: No Current occupational status: retired Cognitive needs: Yes Hearing needs: No Vision needs: Yes Physical Exam Vital Signs: Last Vital Signs Pulse 88 05/30/24 08:53 BP 130/72 05/30/24 08:53 Pulse Ox 100 05/30/24 08:53 Oxygen Delivery Method Room Air 05/30/24 08:53 BMI result Body Mass Index 20.3 Const General: cooperative and comfortable Nutritional Appearance: thin and underweight Orientation/consciousness: patient oriented x3 Limitations: ambulation with walker HEENT Face and sinus: Yes face symmetric Eyes Pupils: Equal, round and reactive pupils present Neck Neck: Yes other (Limited ROM to r/l and ext/flexion) Resp Effort & Inspection: normal respiratory effort and able to speak in complete sentences Neuro General: patient oriented x3 and moves all extremities Cranial nerves: Yes CN's II-XII intact bilaterally, Yes Facial sensation intact/muscles of mastication intact, Yes Equal, round and reactive pupils present, Yes Normal facial strength present, Yes Midline tongue present, Yes Ability to bilaterally elevate shoulders present and Yes Other cranial nerve findings present (unable to rotate the head or flex or extend the neck) Cognition (Neuro): normal cognition Gait exam (Neuro): Assisted gait required and Assistive device used (cane and holds on to the daughter) Motor exam (neuro): Abnormal motor strength present (3/5 strength ) and Abnormal muscle tone present (thin/ frail) Deep tendon reflexes (DTR's): Right triceps reflex intensity grade: 2+, Left triceps reflex intensity grade: 2+, Rt Biceps (C5, C6): 2+, Left biceps reflex intensity grade: 2+, Right brachioradialis reflex intensity grade: 2+, Left brachioradialis reflex intensity grade: 2+, Right patellar reflex intensity grade: 2+ and Left patellar reflex intensity grade: 2+ Psych Appearance: grossly normal Mental Status: mental status grossly normal Speech and movement: Slowed movement present (Neuro) Attitude: cooperative Results Reviewed Results Reviewed: Thyroid Nodule procedure LLL 2.3cm -Drained >10ml fluid MRI -Lesion in the R. Dorsal Roel area. Assessment & Plan Assessment & Plan (1) Cervical spinal stenosis: Comment: multilevel moderate Code(s): M48.02 - Spinal stenosis, cervical region Category: Medical (2) Multiple sclerosis involving brain stem: Comment: lesion in right dorsal roel Code(s): G35 - Multiple sclerosis Category: Medical Plan: (3) Balance disorder: Code(s): R26.89 - Other abnormalities of gait and mobility Category: Medical (4) Benign positional vertigo: Code(s): H81.10 - Benign paroxysmal vertigo, unspecified ear Category: Medical Qualifiers: Laterality: unspecified laterality Qualified Code(s): H81.10 - Benign paroxysmal vertigo, unspecified ear Plan -Balance and Gait Difficulties with Vertigo? BPPV/ d/t MS? -Continue working with PT, to improve gait balance and strengthening exercise as needed. -Will discontinue Gabapentin, she will continue with Tylenol and Voltran topically and a weighted blanket for her legs at night. Magnesium for leg cramps at night. Vitamin D, daily. Discontinue daily use of cod liver oil pills, as B12 levels were high. -ENT for Balance and Gait difficulties Follow up in 3 months, you may send a message on the portal if you have any concerns, or call the office. Orders: Referrals Ear/Nose/Throat Referral H81.10 - Benign paroxysmal vertigo, unspecified ear, R26.89 - Other abnormalities of gait and mobility Medications: New magnesium oxide 400 mg PO DAILY 30 tabs 0RF leg spasm M62.838 - Other muscle spasm Coding Level of Care Code Est Pt Level 4 (21316) Diagnoses Cervical spinal stenosis M48.02 Multiple sclerosis involving brain stem G35 Balance disorder R26.89 Benign paroxysmal positional vertigo, unspecified laterality H81.10 Laterality: unspecified laterality Time Spent (min) 30 Comment Improving
[2024-05-30 08:53] VITALS: BP 130/72; PULSE 88; O2SAT 100; BMI 20.3
== END 2024-05-30 09:41 | disposition home or self-care (01) ==
PROVIDERS: PCP Internal Medicine; Visit Provider Physician Assistant Medical
DX: M48.02 Spinal stenosis, cervical region (principal); G35 Multiple sclerosis; R26.89 Other abnormalities of gait and mobility; H81.10 Benign paroxysmal vertigo, unspecified ear
CPT/HCPCS: 99214

== ENCOUNTER → 2024-05-30 08:37 | Outpatient (BNVA) | payer OTHER, SELFPAY | PROVIDERS: PCP Internal Medicine; Visit Provider Physician Assistant Medical | DX: G37.9 Demyelinating disease of central nervous system, unspecified (principal); M48.02 Spinal stenosis, cervical region; G35 Multiple sclerosis; R26.89 Other abnormalities of gait and mobility; H81.10 Benign paroxysmal vertigo, unspecified ear | CPT/HCPCS: 99212 ==

== ENCOUNTER 2024-06-07 08:53 | Outpatient (REF) | payer OTHER, SELFPAY ==
--- NOTE | 2024-06-07 09:33 | PM.PROC ---
Brief Operative Note Date of procedure: 06/07/24 Pre-op diagnosis: left inferior 2.9 cm thyroid lobe nodule FNA biopsy Procedure: THYROID FINE NEEDLE ASPIRATION PROCEDURE NOTE ? PROCEDURE PERFORMED: Ultrasound-guided FNA of thyroid nodule ? OPERATORS: Dr. Yakelin Lorenzo ? INDICATION: left inferior 2.9 cm thyroid nodule ; FNA performed to assess for malignancy ? DESCRIPTION OF PROCEDURE: The indications for FNA (to assess for malignancy) were reviewed with the patient in detail. Potential complications (e.g., bleeding, infection, damage to local structures, absence of clear diagnosis after FNA) were reviewed. Alternatives to FNA including conservative observation or surgery were described. The patient understood and agreed to proceed. This was documented by the signing of the written informed consent form. A time-out was performed to confirm the patient's identity and the site of planned FNA. The nodule of interest was identified using ultrasound (14 MHz linear array probe). The site of FNA was then draped in the usual fashion and carefully cleaned and prepared using alcohol swabs. The skin at the previously-identified site of needle insertion was iced and sprayed with numbing spray. Under ultrasound guidance, 5__ passes were performed using a 1.5-inch, 25-gauge needle, and sample was obtained via capillary action. The needle tip was clearly visualized to be within the nodule at the time of sampling for 5__ of 5__ passes The patient tolerated the procedure well. There were no immediate complications. A small adhesive bandage was applied, and the patient was advised to take acetaminophen (rather than NSAIDs) for any discomfort and to report any signs of inflammation/infection or marked swelling. IMPRESSION: Technically successful ultrasound-guided fine needle aspiration of left inferior 2.9 cm thyroid nodule . PLAN: The patient was advised that I will provide follow-up regarding the cytology result and any subsequent plans. Yakelin Lorenzo MD Endocrinology Attending Condition: stable Disposition: same day
== END 2024-06-07 08:54 | disposition home or self-care (01) ==
LOC: HO.US 08:53
PROVIDERS: PCP Internal Medicine; Visit Provider Student in an Organized Health Care Education/Training Program
DX: E04.1 Nontoxic single thyroid nodule (principal)
CPT/HCPCS: 10005; 88173

== ENCOUNTER → 2024-06-07 08:53 | Outpatient (BNV) | payer OTHER, SELFPAY | PROVIDERS: PCP Internal Medicine; Visit Provider Student in an Organized Health Care Education/Training Program | DX: E04.1 Nontoxic single thyroid nodule (principal) | CPT/HCPCS: 10005 ==

== ENCOUNTER 2024-07-06 14:22 | Outpatient (AMB) | payer OTHER, SELFPAY ==
--- NOTE | 2024-07-06 14:40 | MHC.OFFVIS ---
Vital Signs 07/06/24 14:46 Height 5 ft 2 in Weight 112 lb 3.445 oz BMI 20.5 BP 122/62 Blood Pressure Location Lt brachial Position Sitting Pulse 81 Pulse Source Pulse Oximeter Pulse Oximetry (%) 98 Oxygen Delivery Method Room Air Intake Visit Reasons: Biopsy f/u Intake Note: Patient present today for Biopsy follow up. Smoke And Flame Specialist Required: Yes Smoke And Flame Specialist Language: Geotechnical Engineering Technician Services: Smoke And Flame Specialist Offered & Declined Accompanied by: Daughter Allergies pravastatin Allergy (Unknown, Verified 07/06/24 14:52) Unknown simvastatin Allergy (Unknown, Verified 07/06/24 14:52) Unknown metformin Adverse Reaction (Intermediate, Verified 07/06/24 14:52) Abdominal Pain Penicillins Adverse Reaction (Verified 07/06/24 14:52) Weakness Medication List - Last Reconciled 07/06/24 by Yaeklin Lorenzo MD acetaminophen (Tylenol Extra Strength) 500 mg PO Q6H PRN blood pressure monitor (Blood Pressure Kit) As directed blood sugar diagnostic As directed check the blood sugar once a day ONE TOUCH blood-glucose meter (OneTouch Ultra2 Meter kit) As directed check the blood sugar once a day diclofenac sodium 1% (Voltaren Arthritis Pain) 4 grams topical QID gabapentin 100 mg PO BEDTIME lancets As directed check the blood sugar q.day lisinopril 5 mg PO DAILY 90 days lorazepam 1-2 tab orally 1 hour before the procedure PRN; omega-3 fatty acids (Fish Oil Concentrate) 1,000 mg PO DAILY [One touch Ultra test strips Use 1 test strip once a day] rosuvastatin 5 mg PO DAILY HPI Comments Details: 74 YO F who is seen for follow up of multinodular thyroid . Here with daughter Monik. HPI from prior visit Was found to have thyroid nodules on cervical MRI incidentally in October 2023, then underwent thyroid ultrasound 12/14 showed multiple bilateral nodules, i reviewed the images myself which showed the right dominant 1.2 cm TIRADS 3 nodule and the dominant left inferior 2.9 cm which is TR5 with echogenic foci. Underwent biopsy of the left inferior 2.9 cm nodule on 03/15/2024, which came back as AUS ([place] category 3), with nuclear irregularities, Afirma had low RNA yield so no results obtained. Currently denies any dysphagia or hoarseness of voice. Denies sensation of swelling in the neck or difficulty breathing while lying flat. Denies any tenderness in the neck. Some intermittent choking when she eats. with big bites. Sometimes a forceful swallowing is required. Denies any palpitations, tremors, weight loss, frequent bowel movements. Denies any ocular complaints, blurred or double vision. Denies hair loss, dry skin, heat or cold intolerance, weight gain, confusion. She has chronic constipation. Denies any history of head or neck irradiation. Denies any family history of thyroid cancer. Daughter has hyperthyroidism TSH normal from November 2023. Denies having ever used lithium, amiodarone or biotin supplements. Interval history 06/07/2024: Underwent repeat biopsy of the left inferior nodule which came back again as AUS, [place] category 3 with nuclear atypia, Afirma came back suspicious with a 50% chance of malignancy. Physical exam General: sitting comfortably in no acute distress HEENT: normocephalic/atraumatic, , moist oral mucosa Neck: supple, symmetrical,palapable 3 cm left lobe nodule , no dorsocervical or supraclavicular fat pads Cardiac: normal heart sounds Pulm: normal breath sounds B/L, no added breath sounds Abd: not distended, no tenderness Extremities: no edema, no signs of myxedema Laboratory Tests 12/17/23 06:40 TSH 1.47 Free T4 0.95 Laboratory Tests 12/17/23 06:40 25-OH Vitamin D Total 23.9 L US THYROID 12/14 i reviewed the images myself which showed the right dominant 1.2 cm TIRADS 3 nodule and the dominant left inferior 2.9 cm which is TR5 with echogenic foci. CLINICAL INFORMATION: Nontoxic single thyroid nodule. COMPARISON: None available. TECHNIQUE: Linear transducer grayscale and color Doppler examination with attention to the region of the thyroid. FINDINGS: SIZE: Measurements of the thyroid lobes and nodules are given in sagittal, anteroposterior and transverse dimensions respectively. Right Thyroid Lobe: 6.4 x 2.5 x 2.8 cm, volume 23.2 mL. Parenchyma: The gland echotexture is heterogeneous. Thyroid vascularity is normal. Left Thyroid Lobe: 5.9 x 2.7 x 3.0 cm, volume 25.5 mL. Parenchyma: The gland echotexture is heterogeneous. Thyroid vascularity is normal. Isthmus: 0.3 cm in maximum AP dimension. Estimated total number of nodules greater than or equal to 1 cm: 3. Cigarette Stamper nodules are described as follows: 1. Location: Right superior. Size: 1.1 x 1.0 x 0.6 cm, volume 0.337 mL. Nodule characteristics: Composition: Solid (2). Echogenicity: Isoechoic (1). Shape: Not taller than wide (0). Margins: Smooth (0). Echogenic Foci: None (0). ACR TI-RADS total points: 3 ACR TI-RADS category: 3 2. Location: Right mid. Size: 0.8 x 0.4 x 0.5 cm, volume 0.082 mL. Nodule characteristics: Composition: Spongiform (0). Echogenicity: Anechoic (0). Shape: Not taller than wide (0). Margins: Smooth (0). Echogenic Foci: None (0). ACR TI-RADS total points: 0 ACR TI-RADS category: 1 3. Location: Right inferior. Size: 1.2 x 1.0 x 1.0 cm, volume 0.656 mL. Nodule characteristics: Composition: Solid (2). Echogenicity: Hyperechoic (1). Shape: Not taller than wide (0). Margins: Smooth (0). Echogenic Foci: None (0). ACR TI-RADS total points: 3 ACR TI-RADS category: 3 4. Location: Left inferior. Size: 2.7 x 2.9 x 2.1 cm, volume 8.4 mL. Nodule characteristics: Composition: Solid (2). Echogenicity: Hypoechoic (2). Shape: Not taller than wide (0). Margins: Lobulated (2). Echogenic Foci: None (0). ACR TI-RADS total points: 6 ACR TI-RADS category: 4 5. Location: Left mid. Size: 0.8 x 0.8 x 0.5 cm, volume 0.173 mL. Nodule characteristics: Composition: Solid/almost completely solid (2). Echogenicity: Hypoechoic (2). Shape: Not taller than wide (0). Margins: Smooth (0). Echogenic Foci: None (0). ACR TI-RADS total points: 4 ACR TI-RADS category: 4 NODES: No lymphadenopathy is seen in the tissue surrounding the thyroid gland. US/US thyroid IMPRESSION: Enlarged, heterogeneous multinodular thyroid gland. 2.7 cm left lower thyroid nodule TR4 thyroid nodule (less likely pseudonodule) meets criteria for biopsy. Fine-needle aspiration recommended. This study was presented to nd November for interpretation. [facility] staff will provide results to referring provider at this time. [facility] Medical History Cervical spinal stenosis Multiple sclerosis involving brain stem Anxiety Seizure disorder Vitamin D deficiency Osteopenia Hypercholesterolemia Type 2 diabetes mellitus with hyperglycemia Surgical History S/P thyroid biopsy History of tubal ligation Family History Father Hypertension Mother Cancer Brother Diabetes Social History Household Members: Children Household Members Other:: Daughter: Monik Housing: Apartment Do you presently have visiting nurse or other home services: No Alcohol intake: never Patient Tobacco Use Status: Former Tobacco user Tobacco use type: Cigarette Cigarettes Per Day: 1 Years Smoked: 5 e-Cigarette/Vaping Use: Never Used Second Hand Smoke Exposure: No service: No Current occupational status: retired Cognitive needs: Yes Hearing needs: No Vision needs: Yes Physical Exam Vital Signs: Last Vital Signs Pulse 81 07/06/24 14:46 BP 122/62 07/06/24 14:46 Pulse Ox 98 07/06/24 14:46 Oxygen Delivery Method Room Air 07/06/24 14:46 BMI result Body Mass Index 20.5 Assessment & Plan Assessment & Plan (1) Thyroid nodule: Comment: 03/12/2024Thyroid, left lower lobe nodule, fine needle aspiration: Atypia of undetermined significance ([place] category III May 2024 biopsy atypia of unknown significance Code(s): E04.1 - Nontoxic single thyroid nodule Category: Medical Plan: Patient with no family history of thyroid cancer, with no personal history of head or neck radiation coming in today for follow up of multinodular thyroid. She does not have any significant compressive symptoms. Ultrasound of the thyroid November 2023 showed bilateral nodules with a right inferior dominant 1.2 cm nodule which is solid, hypoechoic, TR 3 category in the left inferior dominant 2.9 cm nodule which is solid, hypoechoic, has somewhat lobulated margins, punctate echogenic foci, TR 5 category. This nodule met criteria for FNA and per DIANA this is high suspicion nodule with greater than 50% chance of malignancy.Underwent biopsy of the left inferior 2.9 cm nodule on 03/15/2024, which came back as AUS ([place] category 3), with nuclear irregularities, Afirma had low RNA yield so no results obtained. 06/07/2024: Underwent repeat biopsy of the left inferior nodule which came back again as AUS, [place] category 3 with nuclear atypia, Afirma came back suspicious with a 50% chance of malignancy. She is biochemically euthyroid. I discussed with the patient that given these Afirma results with 50% risk of malignancy, at this time I would advise either left lobectomy or total thyroidectomy. We will refer her to Dr. Cayetano Pereira at [facility] for evaluation. She does not have any family history of thyroid cancer no personal history of head or neck radiation she is a nonsmoker, and given nodule is less than 4 cm in size on the left side, she could be a candidate for left lobectomy. However she also has a right-sided nodule, and so also okay to proceed with total thyroidectomy. I did discuss with the patient that total thyroidectomy would result in weight her being dependent on thyroid hormone replacement for the rest of her life while with lobectomy she might not need replacement. No lymphadenopathy per the ultrasound report from November 2023. I do not see any images of any abnormal lymph nodes. Vitamin-D level noted to be low at 23 from November 2023, I have asked patient to start taking vitamin-D 1000 units daily. Prescription sent. Discussed with her complication of injury to parathyroid glands in thyroid surgery and importance of vitamin-D intake to avoid risk of hypocalcemia. Plan: -referral placed for Dr. Cayetano Pereira at [facility] -start vitamin-D 1000 units daily -follow up in 3 months Plan I spent 30 minutes in reviewing the record, seeing the patient and documenting in the medical record. Orders: Referrals General Surgery Referral E04.1 - Nontoxic single thyroid nodule Medications: New cholecalciferol (vitamin D3) 25 mcg PO DAILY 3 months 90 caps 1RF Coding Level of Care Code Est Pt Level 4 (52749) Diagnoses Thyroid nodule E04.1 Time Spent (min) 30
[2024-07-06 14:46] VITALS: BP 122/62; PULSE 81; O2SAT 98; BMI 20.5
== END 2024-07-06 15:30 | disposition home or self-care (01) ==
PROVIDERS: PCP Internal Medicine; Visit Provider Student in an Organized Health Care Education/Training Program
DX: E04.1 Nontoxic single thyroid nodule (principal)
CPT/HCPCS: 99214

== ENCOUNTER → 2024-07-06 14:22 | Outpatient (BNVA) | payer OTHER, SELFPAY | PROVIDERS: PCP Internal Medicine; Visit Provider Student in an Organized Health Care Education/Training Program | DX: E04.1 Nontoxic single thyroid nodule (principal) | CPT/HCPCS: 99212 ==

== ENCOUNTER 2024-08-23 08:25 | Outpatient (AMB) | payer OTHER, SELFPAY ==
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
[2024-08-23 09:43] VITALS: BP 140/70; BMI 20.1
== END 2024-08-23 11:11 | disposition home or self-care (01) ==
LOC: HO.HSMS 08:26
PROVIDERS: PCP Internal Medicine; Visit Provider Physician Assistant Medical
DX: M48.02 Spinal stenosis, cervical region (principal); G35 Multiple sclerosis; R26.89 Other abnormalities of gait and mobility; H81.10 Benign paroxysmal vertigo, unspecified ear
CPT/HCPCS: 99214; G2211

== ENCOUNTER → 2024-08-23 08:25 | Outpatient (BNVA) | payer OTHER, SELFPAY | PROVIDERS: PCP Internal Medicine; Visit Provider Physician Assistant Medical | DX: M48.02 Spinal stenosis, cervical region (principal); G35 Multiple sclerosis; R26.89 Other abnormalities of gait and mobility; H81.10 Benign paroxysmal vertigo, unspecified ear | CPT/HCPCS: 99212 ==

== ENCOUNTER 2024-10-26 10:21 | Outpatient (AMB) | payer OTHER, SELFPAY ==
[2024-10-26 10:40] VITALS: BP 116/60; PULSE 79; O2SAT 98; BMI 19.4
--- NOTE | 2024-10-26 10:40 | A.OFFPC_ITS ---
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: No Accompanied by: Self / Same As Patient Allergies pravastatin Allergy (Unknown, Verified 10/26/24 10:41) Unknown simvastatin Allergy (Unknown, Verified 10/26/24 10:41) Unknown metformin Adverse Reaction (Intermediate, Verified 10/26/24 10:41) Abdominal Pain Penicillins Adverse Reaction (Verified 10/26/24 10:41) Weakness Medication List - Last Reconciled 10/26/24 by Lucia Curry MD acetaminophen (Tylenol Extra Strength) 500 mg PO Q6H PRN blood pressure monitor (Blood Pressure Kit) As directed blood sugar diagnostic As directed check the blood sugar once a day ONE TOUCH blood-glucose meter (OneTouch Ultra2 Meter kit) As directed check the blood sugar once a day cholecalciferol (vitamin D3) 25 mcg PO DAILY 3 months diclofenac sodium 1% (Voltaren Arthritis Pain) 4 grams topical QID gabapentin 100 mg PO BEDTIME lancets As directed check the blood sugar q.day lisinopril 5 mg PO DAILY 90 days lorazepam 1-2 tab orally 1 hour before the procedure PRN; omega-3 fatty acids (Fish Oil Concentrate) 1,000 mg PO DAILY [One touch Ultra test strips Use 1 test strip once a day] rosuvastatin 5 mg PO DAILY Tobacco use date assessed: 10/26/24 Fall risk assessment: No Falls in past year Last assessed Fall Risk: 10/26/24 Dental Screening Dental Screen Date: 10/26/24 Did you have a dental visit in the last 12 months?: No Did you have a dental problem in the last 6 months where you did not have access to dental care?: No Was dental information given to patient?: Patient has dentist HPI DM HPI Details 02/20 thyroid surgery PFSH Medical History Cervical spinal stenosis Multiple sclerosis involving brain stem Anxiety Seizure disorder Vitamin D deficiency Osteopenia Hypercholesterolemia Type 2 diabetes mellitus with hyperglycemia Surgical History S/P thyroid biopsy History of tubal ligation Family History Father Hypertension Mother Cancer Brother Diabetes Social History Household Members: Children Household Members Other:: Daughter: Monik Housing: Apartment Do you presently have visiting nurse or other home services: No Alcohol intake: never Patient Tobacco Use Status: Former Tobacco user Tobacco use type: Cigarette Cigarettes Per Day: 1 Years Smoked: 5 e-Cigarette/Vaping Use: Never Used Second Hand Smoke Exposure: No service: No Current occupational status: retired Cognitive needs: Yes Hearing needs: No Vision needs: Yes Questionnaire PHQ-9 Over the last 2 weeks, how often have you been bothered by any of the following problems? 1. Little interest or pleasure in doing things: not at all 2. Feeling down, depressed, or hopeless: not at all 3. Trouble falling or staying asleep, or sleeping too much: not at all 4. Feeling tired or having little energy: not at all 5. Poor appetite or overeating: not at all 6. Feeling bad about yourself - or that you are a failure or have let yourself or your family down: several days 7. Trouble concentrating on things, such as reading the newspaper or watching television: several days 8. Moving or speaking so slowly that other people could have noticed. Or the opposite - being so fidgety or restless that you have been moving around a lot more than usual: several days 9. Thoughts that you would be better off or of hurting yourself in some way: not at all Total score: 3 Source: Developed by Drs. Roque Engel, Regine Lenz, Sharan Ervin and colleagues, with an educational armando from [employer]. Thrive Questionnaire Date Thrive assessed: 10/26/24 I am a: Patient What is your living situation today?: I have a steady place to live Within the past 12 months, did the food you bought not last and you didn't have the money to get more?: Never true Within the past 12 months, did you worry whether your food would run out before you got money to buy more?: Never true Do you have trouble paying for medicines?: No Do you have trouble getting transportation to medical appointments?: Yes Do you have trouble paying your heating and electricity bill?: No Do you have trouble taking care of your child, family member or friend?: No Do you have trouble with day-to-day activities such as bathing, preparing meals, shopping, managing finances, etc.?: Yes Are you currently unemployed and looking for a job?: No Are you interested in more education?: No Please select the resources that you would like help with: None Currently or been in a relationship where the following occur: I choose not to answer THRIVE Score: 1 AUDIT C Alcohol Use Questionnaire (AUDIT-C) 1. How often do you have a drink containing alcohol?: Never 3. How often do you have six or more drinks on one occasion?: Never Total Score: 0 LAZARUS-7 AMB Questionnaire LAZARUS-7 Date LAZARUS - 7 assessed: 10/26/24 Feeling nervous, anxious, or on edge: 1 = Several days Not being able to stop or control worryin = Several days Worrying too much about different things: 1 = Several days Trouble relaxin = Not at all Being so restless that it is hard to sit still: 1 = Several days Becoming easily annoyed or irritable: 1 = Several days Feeling afraid as if something awful might happen: 0 = Not at all Total LAZARUS-7 score (0-4 normal; 5-9 mild; 10-14 moderate; 15-21 severe): 5 Source: Developed by Drs. Roque Engel, Regine Lenz, Sharan Ervin and colleagues, with an educational armando from [employer]. Physical exam (Primary Care) Vital Signs: Last Vital Signs Pulse 79 10/26/24 10:40 BP 116/60 10/26/24 10:40 Pulse Ox 98 10/26/24 10:40 Oxygen Delivery Method Room Air 10/26/24 10:40 BMI result Body Mass Index 19.4 Tobacco/Smoking Status: Tobacco use Status Tobacco use date assessed 10/26/24 10/26/24 10:48 Patient Tobacco Use Status Former Tobacco user 10/26/24 10:48 Tobacco use type Cigarette 10/26/24 10:48 e-Cigarette/Vaping Use Never Used 10/26/24 10:48 PHQ-9: PHQ-9 Score PHQ-9: Total score 3 10/26/24 11:01 Thrive Assessment: Date of Thrive Assessment Date Thrive assessed 10/26/24 10/26/24 10:48 Currently or been in a relationship where the following occur: I choose not to answer Const General: alert; No acute distress Eyes Conjunctivae: conjunctivae normal Resp Auscultation: clear to auscultation bilaterally Cardio Rate: regular rate Rhythm: regular rhythm GI Inspection: Yes normal to inspection Extrem General: Yes normal to inspection and No edema Results AMB Hemoglobin A1c AMB Hemoglobin A1c 6.5 % Last Edit by AURE Zelaya on 10/26/24 10 :58 Results Reviewed Results Reviewed: Laboratory Last Values Hgb A1c (Clinic) 6.5 % (4.0-6.0) H 10/26/24 10:40 Coding Level of Care Code Est Pt Level 4 (01818) Complex EM visit Add On G2211 Diagnoses Type 2 diabetes mellitus with hyperglycemia, without long-term current use of insulin E11.65 Diabetes mellitus senior living insulin use: without extermination inspector use Hypercholesterolemia E78.00 Osteopenia of multiple sites M85.89 Osteopenia location: multiple sites Colonoscopy refused Z53.20 Generalized anxiety disorder F41.1 Primary hypertension I10 Hypertension type: primary hypertension Balance disorder R26.89 Thyroid nodule E04.1 Assessment & Plan Assessment & Plan (1) Type 2 diabetes mellitus with hyperglycemia: Comment: EYE and lasik Code(s): E11.65 - Type 2 diabetes mellitus with hyperglycemia Category: Medical Qualifiers: Diabetes mellitus extermination inspector insulin use: without extermination inspector use Qualified Code(s): E11.65 - Type 2 diabetes mellitus with hyperglycemia Plan: Decrease the amount of carbohydrate intake, pasta, bread, rice and potatoes are all sugar and that is aside from all the sweet stuff, remember that fruits are good but they are Sweet also. Hemoglobin A1c goal of less than 7.0 patient is under control diet control (2) Hypercholesterolemia: Code(s): E78.00 - Pure hypercholesterolemia, unspecified Category: Medical Plan: Avoid fried foods, chicken skin, eggs, butter margarine, pastries and meat. Be it pork or beef they have a lot of cholesterol LDL last tested in November 2023 will request for blood work LDL goal of less than 100 and triglyceride of less than 150 on rosuvastatin 5 mg once a day (3) Osteopenia: Comment: 2014 chronic steroid treatment, November Code(s): M85.80 - Other specified disorders of bone density and structure, unspecified site Category: Medical Qualifiers: Osteopenia location: multiple sites Qualified Code(s): M85.89 - Other specified disorders of bone density and structure, multiple sites Plan: Patient was advised to get another bone density (4) Colonoscopy refused: Code(s): Z53.20 - Procedure and treatment not carried out because of patient's decision for unspecified reasons Category: Medical Plan: Patient has declined colonoscopy (5) Generalized anxiety disorder: Code(s): F41.1 - Generalized anxiety disorder Category: Medical Plan: Continue with medication as needed (6) Hypertension: Code(s): I10 - Essential (primary) hypertension Category: Medical Qualifiers: Hypertension type: primary hypertension Qualified Code(s): I10 - Essential (primary) hypertension Plan: Continue with blood pressure medication. Decrease salt intake and exercise on lisinopril 5 mg once (7) Balance disorder: Code(s): R26.89 - Other abnormalities of gait and mobility Category: Medical Plan: Patient has seen Neurology and has advised physical therapy (8) Thyroid nodule: Comment: 03/12/2024Thyroid, left lower lobe nodule, fine needle aspiration: Atypia of undetermined significance (Glasgow category III May 2024 biopsy atypia of unknown significance Code(s): E04.1 - Nontoxic single thyroid nodule Category: Medical Plan: Review of the notes from endocrinology and has seen the surgeon for thyroid lobectomy Plan History of Present Illness The patient is a 74-year-old female presenting for a follow-up on her chronic conditions and to discuss preoperative preparation for a left thyroid lobectomy. Her diabetes mellitus is well-managed through dietary modifications, maintaining a stable hemoglobin A1c. Hypercholesterolemia is controlled with rosuvastatin, aiming for lower LDL and triglyceride levels. Despite an osteopenic condition, the patient declined further bone density testing but continues vitamin D supplementation. Hypertension remains stable under lisinopril treatment. Her multinodular goiter revealed a suspicious thyroid nodule necessitating lobectomy, planned for January. For her diagnosed multiple sclerosis, leading to balance and gait issues, she was advised to undertake physical therapy. Her magnesium B6 supplementation was halted due to gastrointestinal side effects. Her cognitive status, as assessed by MMSE, is within normal limits. Health Maintenance - Diabetes management with goal hemoglobin A1c of less than 7%. - Lipid management with rosuvastatin aiming for LDL <100 mg/dL. - Advised bone density test, though declined by the patient. - Scheduled left thyroid lobectomy in January for management of thyroid nodule. - Advised on exercise and physical therapy for balance and gait issues. - Declined shingles vaccination but tetanus vaccination is up to date. Social History - Recent relocation to [place]. - Regular physical activity reported. - Declined cataract surgery due to personal preference. - Refused colonoscopy. Review of Systems - Neurological: Denies worsening cognitive symptoms, reports occasional balance and gait difficulties. - Endocrine: Reports stable thyroid nodule management plan. - Musculoskeletal: Declined bone density testing but reports taking Vitamin D. - Cardiovascular: Denies chest pain, maintains normal blood pressure. - General: Reports being active, stable weight. Physical Exam - Vitals- Blood pressure 116/60 mmHg. - General- Appears well-nourished and alert. Results - Lab: Hemoglobin A1c 5.9% in April, 6.1% in November. LDL 59 mg/dL in November. - Biopsy: Suspicious but stable left inferior thyroid nodule. Plan The patient's diabetes mellitus and hypercholesterolemia are both well- controlled, with current management strategies in place. Blood work and EKGs are advised as part of the preoperative process for her planned thyroid lobectomy. Patient education highlighted maintaining hydration and regular physical activity. Continued physical therapy is advised for balancing and gait challenges. The patient is informed of the low malignancy risk associated with h er thyroid condition and consents to surgery. Patient was informed and verbally consented to the use of an ambient scribe for clinic note documentation during this visit. Discussion Notes I discussed with the patient the management of her chronic conditions, including diabetes and hypercholesterolemia, emphasizing the importance of dietary control and medication adherence. We reviewed the thyroid lobectomy procedure, confirming the low malignancy risk of her thyroid nodule, and I provided reassurance about the procedure's simplicity. All preventive care measures, including regular monitoring of blood pressure, lipid levels, and maintaining physical activity, were emphasized. The potential benefits of ongoing physical therapy for balance issues were also addressed. Patient Instructions - Continue current diabetes diet plan. - Take rosuvastatin and lisinopril as prescribed. - Schedule blood work and EKG before thyroid surgery. - Maintain hydration and physical activity. - Consideration of bone density testing if concerns arise. - Follow-up as needed with endocrinology and neurology. - Watch for any symptoms of imbalance or worsening gait. Orders: Orders XR DEXA axial skeleton Today M81.0 - Age-related osteoporosis without current pathological fracture, M85.89 - Other specified disorders of bone density and structure, multiple sites AMB Hemoglobin A1c Today Z13.9 - Encounter for screening, unspecified Medications: Refilled cholecalciferol (vitamin D3) 25 mcg PO DAILY 90 caps 3RF 3 months M85.89 - Other specified disorders of bone density and structure, multiple sites
== END 2024-10-26 11:18 | disposition home or self-care (01) ==
LOC: HO.HMCH 10:22
PROVIDERS: PCP Internal Medicine; Visit Provider Internal Medicine
DX: E11.65 Type 2 diabetes mellitus with hyperglycemia (principal); E78.00 Pure hypercholesterolemia, unspecified; M85.89 Other specified disorders of bone density and structure, multiple sites; Z53.20 Procedure and treatment not carried out because of patient's decision for unspecified reasons; F41.1 Generalized anxiety disorder; I10 Essential (primary) hypertension; R26.89 Other abnormalities of gait and mobility; E04.1 Nontoxic single thyroid nodule; Z13.9 Encounter for screening, unspecified

== ENCOUNTER → 2024-10-26 10:21 | Outpatient (BNVA) | payer OTHER, SELFPAY | PROVIDERS: PCP Internal Medicine; Visit Provider Internal Medicine | DX: E11.65 Type 2 diabetes mellitus with hyperglycemia (principal); E78.00 Pure hypercholesterolemia, unspecified; M85.89 Other specified disorders of bone density and structure, multiple sites; M81.0 Age-related osteoporosis without current pathological fracture; F41.1 Generalized anxiety disorder; I10 Essential (primary) hypertension; R26.89 Other abnormalities of gait and mobility; E04.1 Nontoxic single thyroid nodule | CPT/HCPCS: 83036; 96127; 99212 ==

== ENCOUNTER 2024-10-30 07:34 | Outpatient (REF) | payer OTHER, SELFPAY ==
[2024-10-30 07:53] LABS: MANUAL DIFF FLAG NO
[2024-10-30 08:11] LABS: Basophils Absolute Auto 0.1 X10*3/uL (0.0-0.2); Eosinophils Absolute Auto 0.6 X10*3/uL (0.0-0.4); Eosinophils Percent Auto 9.6 % (0-4); Hematocrit 41.5 % (37.0-47.0); Hemoglobin 13.6 g/dl (12.0-16.0); Imm Gran Abs Auto 0.01 X10*3/uL (0.00-0.03); Imm Gran Pct Auto 0.2 % (0.0-0.4); Lymphocytes Absolute Auto 2.4 X10*3/uL (1.2-4.9); Lymphocytes Percent Auto 41.5 % (20-40); Mean Corpuscular HGB Conc 32.8 g/dl (31.0-35.0); Mean Corpuscular Hemoglobin 28.2 pg (27.0-33.0); Mean Corpuscular Volume 85.9 fL (80.0-98.0); Mean Platelet Volume 9.4 fL (9.4-12.3); Monocytes Absolute Auto 0.5 X10*3/uL (0.1-1.2); Neutrophils Absolute Auto 2.3 x10*3/uL (2.0-8.3); Neutrophils Percent Auto 38.7 % (45-73); Platelet Count 246 X10*3/uL (160-400); Red Blood Count 4.83 X10*6/uL (4.20-5.50); Red Cell Distribution Width 12.9 % (11.0-16.0); White Blood Count 5.9 X10*3/uL (4.8-10.8)
[2024-10-30 08:13] LABS: Estimated Average Glucose 123 mg/dL; Hemoglobin A1C 149.8106 umol/L; Hemoglobin A1c % 5.9 % (<6.0); Total Hemoglobin (HGBA1C) 3610.4113 umol/L
[2024-10-30 08:37] LABS: Alanine Aminotransferase 12 U/L (0-31); Albumin Level 4.2 g/dL (3.5-5.0); Anion Gap 12 (12-20); Aspartate Amino Transferase 19 U/L (5-31); Bilirubin Total 0.6 mg/dL (0.0-1.0); Blood Urea Nitrogen 13 mg/dL (9-16); Calcium 9.2 mg/dL (8.4-10.2); Carbon Dioxide 28 mmol/L (22-29); Chloride 105 mmol/L (96-108); Cholesterol 164 mg/dL (<200); Estimated Glomerular Filt Rate > 60; Glucose Random 95 mg/dL (60-115); HDL Cholesterol 58 mg/dL (>40); LDL Cholesterol Calculated 92 mg/dL (<100); Potassium 4.5 mmol/L (3.3-5.1); Sodium 140 mmol/L (135-145); Total Protein 6.3 g/dL (6.5-8.0); Triglycerides 70 mg/dL (<150)
[2024-10-30 08:59] LABS: Free T4 (Free Thyroxine) 0.98 ng/dL (0.71-1.85); Thyroid Stimulating Hormone 1.11 uIU/mL (0.32-4.0); Vitamin D 25-OH Total 37.5 ng/mL (>30)
[2024-10-30 09:04] LABS: Folate 9.7 ng/mL (> or = 4.0); Vitamin B12 1343 pg/mL (200-900)
[2024-10-30 09:08] LABS: Alkaline Phosphatase 71 U/L (39-117)
[2024-10-30 10:01] LABS: Creatinine Urine 123.02 mg/dL; Microalbumin Urine < 5.0 mg/L
== END 2024-10-30 07:35 | disposition home or self-care (01) ==
LOC: HO.LAB 07:34
PROVIDERS: PCP Internal Medicine; Visit Provider Internal Medicine
DX: E11.65 Type 2 diabetes mellitus with hyperglycemia (principal); E78.00 Pure hypercholesterolemia, unspecified; G37.9 Demyelinating disease of central nervous system, unspecified
CPT/HCPCS: 36415; 80053; 80061; 82043; 82306; 82570; 82607; 82746; 83036; 84439; 84443; 85025

== ENCOUNTER 2024-11-08 09:07 | Outpatient (REF) | payer OTHER, SELFPAY ==
--- NOTE | ~2024-11-08 | MM_ITS ---
EXAMINATION: MM SCREENING DIGITAL BREAST TOMOSYNTHESIS, BILATERAL CLINICAL INFORMATION: Screening. Asymptomatic. COMPARISON: Mammography: Comparison is made with available priors TECHNIQUE: Digital breast mammography with tomosynthesis is performed in both the craniocaudal and mediolateral oblique views along with computer-aided detection (CAD). FINDINGS: The breasts are heterogeneously dense, which may obscure small masses (ACR BI-RADS breast composition Category c). There are no significant masses, abnormal calcifications, or other abnormalities. MM/MM tomosynthesis screening BI IMPRESSION: No mammographic evidence of malignancy. ASSESSMENT: BI-RADS BI-RADS 1 - Negative RECOMMENDATION: Routine annual mammography screening. 1 year F/U This examination should not preclude the clinical evaluation of a suspicious palpable abnormality. This patient's information was entered into a reminder system with a target due date for their next mammogram. Electronically signed by: Jesica Lynch DO 11/13/2024 03:57 PM EDT
== END 2024-11-08 09:08 | disposition home or self-care (01) ==
LOC: HO.MAMMO 09:07
PROVIDERS: PCP Internal Medicine; Visit Provider Internal Medicine
DX: Z12.31 Encounter for screening mammogram for malignant neoplasm of breast (principal)
CPT/HCPCS: 77063; 77067

== ENCOUNTER → 2024-11-08 09:30 | Outpatient (BNV) | payer OTHER, SELFPAY | PROVIDERS: PCP Internal Medicine; Visit Provider Internal Medicine | DX: Z12.31 Encounter for screening mammogram for malignant neoplasm of breast (principal) | CPT/HCPCS: 77063; 77067 ==

== ENCOUNTER 2024-11-22 07:52 | Outpatient (AMB) | payer OTHER, SELFPAY ==
[2024-11-22 08:14] VITALS: PULSE 74; O2SAT 96; BMI 20.1
--- NOTE | 2024-11-22 08:14 | MHC.OFFVIS ---
Vital Signs 11/22/24 08:14 Height 5 ft 2 in Weight 110 lb BMI 20.1 Pulse 74 Pulse Source Pulse Oximeter Pulse Oximetry (%) 96 Oxygen Delivery Method Room Air Intake Visit Reasons: 3 mo follow up Intake Note: Patient presents follow up MS. Miller Supervisor Required: Yes Miller Supervisor Services: Miller Supervisor Offered & Declined Miller Supervisor Name: Daughter Information Interpreted: non-clinical & clinical Accompanied by: Daughter Allergies pravastatin Allergy (Unknown, Verified 11/22/24 08:20) Unknown simvastatin Allergy (Unknown, Verified 11/22/24 08:20) Unknown metformin Adverse Reaction (Intermediate, Verified 11/22/24 08:20) Abdominal Pain Penicillins Adverse Reaction (Verified 11/22/24 08:20) Weakness HPI Comments Details: 74 year old r. handed female presents for a f/u of cognitive issues. Daughter Monik helps with history, she denies any falls. She just moved to [place] and has less stairs to ascend and descend daily. She has MS and electric shock like sensations through out the night. She raises her legs with pillows and she can relax herself by stretching her legs and puts her feet up on her couch. Denies Baclofen due to intolerance. Her sleep is good, goes to bed at 9pm wakes up at 5am with 2 bathroom breaks. Her diet is good, eats lots of nutrient dense fiber rich foods, and has a BM 2-3x daily. She has to slowly chew her food. She has weakness in her hands bilaterally and parasthesias. Spasms and cramping with fine motor activities, writing and buttoning shirt, zipping jackets. She has T2DM is controlled with diet and she walks regularly about a mile. She is active with all her ADLs and lives with her daughter, who supports her with all her daily activities. She has L. leg muscle spasm, twitching, however better without the medication when she stretches and lifts her legs up. Cervicogenic headaches only when she moves her head laterally as if her balance and equilibrium is off and has to mindfully change positions to avoid vertigo. She completed 2 session of PT, and declines it today, as she can not tolerate it at the moment, so she will continue to exercise as needed at home. Denies vision changes, denies dizziness, she has cataracts and anxious about the surgical procedure. She feels unbalanced when she walks, she can not focus on the path in front of her and uses her walker as she holds on to her daughter because she feels more secure. Her memory is worse, she has word finding difficulty, misplaces items, forgets medications, daughter manages her meds. Her mood is good, very positive, she talks to her daughter. She is anxious about the upcoming thyroidectomy due to malignancy, f/u in Feb 20, 2025. MRI [facility] clinic f/u for vertigo and balance - foot drop Vision difficulties unable to flex or extend due to equilibrium, nausea denies vomitting. [facility] Medical History Cervical spinal stenosis Multiple sclerosis involving brain stem Anxiety Seizure disorder Vitamin D deficiency Osteopenia Hypercholesterolemia Type 2 diabetes mellitus with hyperglycemia Surgical History S/P thyroid biopsy History of tubal ligation Family History Father Hypertension Mother Cancer Brother Diabetes Social History Household Members: Children Household Members Other:: Daughter: Monik Housing: Apartment Do you presently have visiting nurse or other home services: No Alcohol intake: never Patient Tobacco Use Status: Former Tobacco user Tobacco use type: Cigarette Cigarettes Per Day: 1 Years Smoked: 5 e-Cigarette/Vaping Use: Never Used Second Hand Smoke Exposure: No service: No Current occupational status: retired Cognitive needs: Yes Hearing needs: No Vision needs: Yes Physical Exam Vital Signs: Last Vital Signs Pulse 74 11/22/24 08:14 Pulse Ox 96 11/22/24 08:14 Oxygen Delivery Method Room Air 11/22/24 08:14 BMI result Body Mass Index 20.1 Const General: cooperative and comfortable Nutritional Appearance: thin and underweight Orientation/consciousness: patient oriented x3 Limitations: ambulation with walker HEENT Face and sinus: Yes face symmetric Neck Neck: Yes other (Limited ROM to r/l and ext/flexion) Resp Effort & Inspection: normal respiratory effort and able to speak in complete sentences Neuro General: patient oriented x3 and moves all extremities Cranial nerves: Yes Facial sensation intact/muscles of mastication intact, Yes Normal facial strength present, Yes Midline tongue present, Yes Ability to bilaterally elevate shoulders present and Yes Other cranial nerve findings present (unable to rotate the head or flex or extend the neck) Cognition (Neuro): normal cognition Gait exam (Neuro): Assisted gait required and Assistive device used (cane and holds on to the daughter) Motor exam (neuro): Abnormal motor strength present (3/5 strength ) and Abnormal muscle tone present (thin/ frail) Psych Speech and movement: Slowed movement present (Neuro) Thought process: Normal thought process present Thought content: Normal thought content present Results Reviewed Results Reviewed: MRI brain 08/14 - Enhancement associated with a single infratentorial lesion along the dorsal roel suggestive of active demyelination. No pathologic intracranial enhancement associated with the supratentorial white matter lesions. Consider contrast enhanced MRI of the cervical and thoracic spine to assess for possibility of demyelinating plaques in the cervicothoracic cord. 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 Most notably, there are moderate spinal canal stenoses at C4-C5 and C5-C6. Mild spinal canal stenosis at C3-C4 and C6-C7. Moderate to severe neural foraminal stenoses at C5-C6 and C6-C7. 2. No demonstrated spinal cord signal abnormalities. No abnormal enhancement. 3. There is a 2 cm heterogeneous lesion in the left thyroid lobe. Recommend further characterization with thyroid ultrasound. Assessment & Plan Assessment & Plan (1) Multiple sclerosis involving brain stem: Comment: lesion in right dorsal roel Multiple sclerosis Code(s): G35 - Multiple sclerosis Category: Medical Plan: (2) Balance disorder: Code(s): R26.89 - Other abnormalities of gait and mobility Category: Medical (3) Cervical spinal stenosis: Comment: multilevel moderate c 4 c5 Code(s): M48.02 - Spinal stenosis, cervical region Category: Medical (4) Forgetfulness: Code(s): R68.89 - Other general symptoms and signs Category: Medical Plan Balance and Gait Difficulties continue PT as needed, changing positions slowly. RLS symptoms will continue with Tylenol and stretching, walking. May take Cod liver pills every 2 days, B12 levels elevated. [facility] brain wellness 1 tablet daily at bedtime for 90 days. MRI with contrast r. dorsal roel lesion Cognitive Decline, engage in social activities and read, journal, complete puzzles. f/u in 3 months Orders: Orders MR head/brain w con Today G35 - Multiple sclerosis Referrals Neurology Referral G35 - Multiple sclerosis, R26.89 - Other abnormalities of gait and mobility Medications: New yuodhdktac-cadkhsr-H-mefolate 600-2-6 mg ([employer]) take one tablet daily at night. 1 tab PO BEDTIME 90 tabs 0RF cognitive decline 3 months MDD t tablet R68.89 - Other general symptoms and signs Patient Instructions: Sleep Hygiene provided: set a scheduled bedtime and wake time to help regulate the circadian rhythm and balance the release of pituitary hormones. Sleep in a dark room, temperatures below 68 degrees, and no devices n bed. Limit caffeinated products 6 hours prior to bed, and limit fluids 2-4 hours prior to bed. Gentle night yoga, diffusing essential oils, and playing soft music can be relaxing. Patient education today re: [facility] orthotic/prosthetic clinician to manage her MS symptoms, gait, balance, vertigo, electric shock, and especially vision as she is apprehensive to have cataract surgery. MRI with gadolinium r.dorsal roel lesion. Coding Level of Care Code Est Pt Level 4 (77154) Diagnoses Multiple sclerosis involving brain stem G35 Balance disorder R26.89 Cervical spinal stenosis M48.02 Forgetfulness R68.89 Time Spent (min) 30 Comment supportive care
== END 2024-11-22 09:01 | disposition home or self-care (01) ==
LOC: HO.HSMS 07:52
PROVIDERS: PCP Internal Medicine; Visit Provider Physician Assistant Medical
DX: G35 Multiple sclerosis (principal); R26.89 Other abnormalities of gait and mobility; M48.02 Spinal stenosis, cervical region; R68.89 Other general symptoms and signs
CPT/HCPCS: 99214

== ENCOUNTER → 2024-11-22 07:52 | Outpatient (BNVA) | payer OTHER, SELFPAY | PROVIDERS: PCP Internal Medicine; Visit Provider Physician Assistant Medical | DX: G35 Multiple sclerosis (principal); R26.89 Other abnormalities of gait and mobility; M48.02 Spinal stenosis, cervical region; R68.89 Other general symptoms and signs | CPT/HCPCS: 99212 ==

== ENCOUNTER 2024-11-23 11:19 | Outpatient (REF) | payer OTHER, SELFPAY ==
--- NOTE | ~2024-11-23 | MM_ITS ---
EXAMINATION: DXA BONE DENSITY AXIAL HISTORY: M81.0 - Age-related osteoporosis without current pathological fracture TECHNIQUE: Iptivia Dual energy absorptiometry (DEXA) of the lumbar spine, total left hip, and femoral neck was performed. COMPARISON: Comparison is made with the prior examination dated 01/16/2022. FINDINGS: The bone mineral density of the lumbar spine is 1.125 g/cm2, corresponding to a T-score of -0.5, and a Z-score of 1.8. This is indicative of normal bone mineral density. This represents a BMD change of -6.6% compared to the prior exam. This is statistically significant. The bone mineral density of the left total hip is 0.842 g/cm2, corresponding to a T-score of -1.3, and a Z-score of 0.8. This is indicative of osteopenia.- This represents a BMD change of 4.8% compared to the prior exam. This is statistically significant. The bone mineral density of the left femoral neck is 0.781 g/cm2, corresponding to a T-score of -1.8, and a Z-score of 0.4. This is indicative of osteopenia. This represents a BMD change of -10.7% compared to the prior exam. FRACTURE RISK: The FRAX index suggests a ten year probability of major osteoporotic fracture of 9.8%, and of hip fracture 2.3%. MM/XR DEXA axial skeleton IMPRESSION: Based on bone mineral density, and according to World Health Organization (WHO) criteria, the diagnosis is consistent with osteopenia. Statistically, 68% of repeat scans fall within 1 SD (+/- 0.010 g/cm2 for AP spine L1-L4) and 1 SD (+/- 0.012 g/cm2 for femur total) FRAX is a trademark of the [employer]'s [place] [facility] Metabolic Bone Disease, a World Health Organization (WHO) Collaborating Center. Electronically signed by: Roque Muñiz MD 11/23/2024 12:08 PM EDT
== END 2024-11-23 11:20 | disposition home or self-care (01) ==
LOC: HO.MAMMO 11:19
PROVIDERS: PCP Internal Medicine; Visit Provider Internal Medicine
DX: M81.0 Age-related osteoporosis without current pathological fracture (principal); M85.89 Other specified disorders of bone density and structure, multiple sites
CPT/HCPCS: 77080

== ENCOUNTER → 2024-11-23 11:30 | Outpatient (BNV) | payer OTHER, SELFPAY | PROVIDERS: PCP Internal Medicine; Visit Provider Radiology Diagnostic Radiology | DX: E28.39 Other primary ovarian failure (principal) | CPT/HCPCS: 77080 ==

== ENCOUNTER 2025-01-01 09:18 | Outpatient (AMB) | payer OTHER, SELFPAY ==
[2025-01-01 09:22] VITALS: BP 128/72; PULSE 78; O2SAT 97; BMI 19.8
--- NOTE | 2025-01-01 09:22 | A.OFFVIS_ITS ---
Vital Signs 3 01/01/25 09:22 Height 5 ft 2 in Weight 108 lb 3.951 oz BMI 19.8 BP 128/72 Blood Pressure Location Lt brachial Position Sitting Pulse 78 Pulse Source Pulse Oximeter Pulse Oximetry (%) 97 Oxygen Delivery Method Room Air Intake Visit Reasons: Thyroid nodule Intake Note: Patient present today for Thyroid nodule office visit. Floral Designer Required: Yes Floral Designer Language: Water Purifier Operator Services: Floral Designer Offered & Declined Accompanied by: Daughter Allergies pravastatin Allergy (Unknown, Verified 01/01/25 09:31) Unknown simvastatin Allergy (Unknown, Verified 01/01/25 09:31) Unknown metformin Adverse Reaction (Intermediate, Verified 01/01/25 09:31) Abdominal Pain Penicillins Adverse Reaction (Verified 01/01/25 09:31) Weakness Medication List - Last Reconciled 01/01/25 by Yakelin Lorenzo MD acetaminophen (Tylenol Extra Strength) 500 mg PO Q6H PRN xrbigcblxp-pymhjbo-C-mefolate 600-2-6 mg (Cerefolin Brain Wellness) 1 tab PO BEDTIME 3 months MDD t tablet blood pressure monitor (Blood Pressure Kit) As directed blood sugar diagnostic As directed check the blood sugar once a day ONE TOUCH blood-glucose meter (OneTouch Ultra2 Meter kit) As directed check the blood sugar once a day cholecalciferol (vitamin D3) 25 mcg PO DAILY 3 months diclofenac sodium 1% (Voltaren Arthritis Pain) 4 grams topical QID gabapentin 100 mg PO BEDTIME lancets As directed check the blood sugar q.day lisinopril 5 mg PO DAILY 90 days lorazepam 1-2 tab orally 1 hour before the procedure PRN; omega-3 fatty acids (Fish Oil Concentrate) 1,000 mg PO DAILY [One touch Ultra test strips Use 1 test strip once a day] rosuvastatin 5 mg PO DAILY HPI Comments Details: 74 YO F who is seen for follow up of multinodular thyroid . Here with daughter Monik. HPI from prior visit Was found to have thyroid nodules on cervical MRI incidentally in October 2023, then underwent thyroid ultrasound 12/14 showed multiple bilateral nodules, i reviewed the images myself which showed the right dominant 1.2 cm TIRADS 3 nodule and the dominant left inferior 2.9 cm which is TR5 with echogenic foci. Underwent biopsy of the left inferior 2.9 cm nodule on 03/15/2024, which came back as AUS ([place] category 3), with nuclear irregularities, Afirma had low RNA yield so no results obtained. Currently denies any dysphagia or hoarseness of voice. Denies sensation of swelling in the neck or difficulty breathing while lying flat. Denies any tenderness in the neck. Some intermittent choking when she eats. with big bites. Sometimes a forceful swallowing is required. Denies any palpitations, tremors, weight loss, frequent bowel movements. Denies any ocular complaints, blurred or double vision. Denies hair loss, dry skin, heat or cold intolerance, weight gain, confusion. She has chronic constipation. Denies any history of head or neck irradiation. Denies any family history of thyroid cancer. Daughter has hyperthyroidism TSH normal from November 2023. Denies having ever used lithium, amiodarone or biotin supplements. 06/07/2024: Underwent repeat biopsy of the left inferior nodule which came back again as AUS, [place] category 3 with nuclear atypia, Afirma came back suspicious with a 50% chance of malignancy. Interval history September 2024: Saw Dr. Cayetano Pereira at [facility] for surgical consultation, was being planned for left lobectomy. Date of surgery Feb 20 2025 Taking vitamin D 1000 units daily Physical exam General: sitting comfortably in no acute distress HEENT: normocephalic/atraumatic, , moist oral mucosa Neck: supple, symmetrical,palapable 3 cm left lobe nodule , no dorsocervical or supraclavicular fat pads Cardiac: normal heart sounds Pulm: normal breath sounds B/L, no added breath sounds Abd: not distended, no tenderness Extremities: no edema, no signs of myxedema Laboratory Tests 12/17/23 06:40 TSH 1.47 Free T4 0.95 Laboratory Tests 12/17/23 06:40 25-OH Vitamin D Total 23.9 L Laboratory Tests 10/30/24 07:52 TSH 1.11 Free T4 0.98 US THYROID 12/14 i reviewed the images myself which showed the right dominant 1.2 cm TIRADS 3 nodule and the dominant left inferior 2.9 cm which is TR5 with echogenic foci. CLINICAL INFORMATION: Nontoxic single thyroid nodule. COMPARISON: None available. TECHNIQUE: Linear transducer grayscale and color Doppler examination with attention to the region of the thyroid. FINDINGS: SIZE: Measurements of the thyroid lobes and nodules are given in sagittal, anteroposterior and transverse dimensions respectively. Right Thyroid Lobe: 6.4 x 2.5 x 2.8 cm, volume 23.2 mL. Parenchyma: The gland echotexture is heterogeneous. Thyroid vascularity is normal. Left Thyroid Lobe: 5.9 x 2.7 x 3.0 cm, volume 25.5 mL. Parenchyma: The gland echotexture is heterogeneous. Thyroid vascularity is normal. Isthmus: 0.3 cm in maximum AP dimension. Estimated total number of nodules greater than or equal to 1 cm: 3. Layout Designer nodules are described as follows: 1. Location: Right superior. Size: 1.1 x 1.0 x 0.6 cm, volume 0.337 mL. Nodule characteristics: Composition: Solid (2). Echogenicity: Isoechoic (1). Shape: Not taller than wide (0). Margins: Smooth (0). Echogenic Foci: None (0). ACR TI-RADS total points: 3 ACR TI-RADS category: 3 2. Location: Right mid. Size: 0.8 x 0.4 x 0.5 cm, volume 0.082 mL. Nodule characteristics: Composition: Spongiform (0). Echogenicity: Anechoic (0). Shape: Not taller than wide (0). Margins: Smooth (0). Echogenic Foci: None (0). ACR TI-RADS total points: 0 ACR TI-RADS category: 1 3. Location: Right inferior. Size: 1.2 x 1.0 x 1.0 cm, volume 0.656 mL. Nodule characteristics: Composition: Solid (2). Echogenicity: Hyperechoic (1). Shape: Not taller than wide (0). Margins: Smooth (0). Echogenic Foci: None (0). ACR TI-RADS total points: 3 ACR TI-RADS category: 3 4. Location: Left inferior. Size: 2.7 x 2.9 x 2.1 cm, volume 8.4 mL. Nodule characteristics: Composition: Solid (2). Echogenicity: Hypoechoic (2). Shape: Not taller than wide (0). Margins: Lobulated (2). Echogenic Foci: None (0). ACR TI-RADS total points: 6 ACR TI-RADS category: 4 5. Location: Left mid. Size: 0.8 x 0.8 x 0.5 cm, volume 0.173 mL. Nodule characteristics: Composition: Solid/almost completely solid (2). Echogenicity: Hypoechoic (2). Shape: Not taller than wide (0). Margins: Smooth (0). Echogenic Foci: None (0). ACR TI-RADS total points: 4 ACR TI-RADS category: 4 NODES: No lymphadenopathy is seen in the tissue surrounding the thyroid gland. US/US thyroid IMPRESSION: Enlarged, heterogeneous multinodular thyroid gland. 2.7 cm left lower thyroid nodule TR4 thyroid nodule (less likely pseudonodule) meets criteria for biopsy. Fine-needle aspiration recommended. This study was presented to [facility] November for interpretation. [facility] staff will provide results to referring provider at this time. [facility] Medical History Cervical spinal stenosis Multiple sclerosis involving brain stem Anxiety Seizure disorder Vitamin D deficiency Osteopenia Hypercholesterolemia Type 2 diabetes mellitus with hyperglycemia Surgical History S/P thyroid biopsy History of tubal ligation Family History Father Hypertension Mother Cancer Brother Diabetes Social History Household Members: Children Household Members Other:: Daughter: Monik Housing: Apartment Do you presently have visiting nurse or other home services: No Alcohol intake: never Patient Tobacco Use Status: Former Tobacco user Tobacco use type: Cigarette Cigarettes Per Day: 1 Years Smoked: 5 e-Cigarette/Vaping Use: Never Used Second Hand Smoke Exposure: No service: No Current occupational status: retired Cognitive needs: Yes Hearing needs: No Vision needs: Yes Physical Exam Vital Signs: Last Vital Signs Pulse 78 01/01/25 09:22 BP 128/72 01/01/25 09:22 Pulse Ox 97 01/01/25 09:22 Oxygen Delivery Method Room Air 01/01/25 09:22 BMI result Body Mass Index 19.8 Assessment & Plan Assessment & Plan (1) Thyroid nodule: Comment: 03/12/2024Thyroid, left lower lobe nodule, fine needle aspiration: Atypia of undetermined significance ([place] category III May 2024 biopsy atypia of unknown significance Code(s): E04.1 - Nontoxic single thyroid nodule Category: Medical Plan: Patient with no family history of thyroid cancer, with no personal history of head or neck radiation coming in today for follow up of multinodular thyroid. She does not have any significant compressive symptoms. Ultrasound of the thyroid November 2023 showed bilateral nodules with a right inferior dominant 1.2 cm nodule which is solid, hypoechoic, TR 3 category and the left inferior dominant 2.9 cm nodule which is solid, hypoechoic, has somewhat lobulated margins, punctate echogenic foci, TR 5 category. This nodule met criteria for FNA and per DIANA this is high suspicion nodule with greater than 50% chance of malignancy.Underwent biopsy of the left inferior 2.9 cm nodule on 03/15/2024, which came back as AUS ([place] category 3), with nuclear irregularities, Afirma had low RNA yield so no results obtained. 06/07/2024: Underwent repeat biopsy of the left inferior nodule which came back again as AUS, [place] category 3 with nuclear atypia, Afirma came back suspicious with a 50% chance of malignancy. She is biochemically euthyroid. September 2024: Saw Dr. Cayetano Pereira at [facility] for surgical consultation, was being planned for left lobectomy. Date of surgery Feb 20 2025 Taking vitamin D 1000 units daily Vitamin-D level noted to be low at 23 from November 2023, Discussed with her complication of injury to parathyroid glands in thyroid surgery and importance of vitamin-D intake to avoid risk of hypocalcemia. Plan: -plan is for left lobectomy with Dr. Cayetano Pereira at [facility] on February 20 2025 -continue vitamin-D 1000 units daily -follow up 4-6 weeks postoperatively with blood work done prior to appointment Plan See above Orders: Orders 2 Thyroid Stimulating Hormone 03/13/25 E04.1 - Nontoxic single thyroid nodule Free T4 (Free Thyroxine) 03/13/25 E04.1 - Nontoxic single thyroid nodule Patient Instructions: Follow up in February 2025 with blood work done 3-4 days before appointment Continue vitamin D 1000 units daily Coding Level of Care Code Est Pt Level 3 (64080) Diagnoses Thyroid nodule E04.1
--- OUTSIDE RECORDS SUMMARY | 2025-01-01 09:45 | XMS_ITS | Clinical Summary ---
Author Organization [address] [facility] Address [address] [place] [address] Phone Care Team Providers Care Funeral Planning Counselor Name Role Phone Judi Montero Primary Care Provider [phone] Social History Tobacco Use Types Packs/Day Years Used Date Smoking Tobacco: Never Assessed Comments Unknown Sex and Gender Information Value Date Recorded Sex Assigned at Not on file Legal Sex Female 11:48 AM EDT Gender Identity Not on file Sexual Orientation Not on file Plan of Treatment Upcoming Encounters Date Type Department Care Team (Late st Contact Info) Description 01/17/2025 11:00 AM EDT Consult [facility] [address] [facility] [address] [place] [address] Grant Arroyo MD [address] [facility] [address] [place] [id number] Health Maintenance Due Date Last Done Comments DTaP,Tdap,and Td Vaccines (1 - Tdap) 1968 Pneumococcal Vaccine: 50+ Ye ars (1 of 1 - PCV) 1999 Zoster Vaccines (1 of 2) 1999 COVID-19 Vaccine ( - 2023-2 5 season) 2024 Depression Screening 05/24/2024 RSV Immunization Adult Patie nts (1 - 1-dose 75+ series) 2024 Colorectal Cancer Screening: Colonoscopy 11/27/2024 Falls Risk Assessment 11/27/2024 Hepatitis C Screening 11/27/2024 Medicare Annual Wellness Visit 11/27/2024 Osteoporosis Screening (Bone Density Screening) 11/27/2024 Social Influencers of Health Screening 11/27/2024 Influenza Vaccine (#1) 2025 HIB Vaccines Aged Out No longer eligi ble based on patient's age to complete this topic HPV Vaccines Aged Out No longer eligi ble based on patient's age to complete this topic Hepatitis A Vaccines Aged Out No long er eligible based on patient's age to complete this topic Hepatitis B Vaccines Aged Out No long er eligible based on patient's age to complete this topic IPV Vaccines Aged Out No longer eligi ble based on patient's age to complete this topic MMR Vaccines Aged Out No longer eligi ble based on patient's age to complete this topic Meningococcal ACWY Vaccine Aged Out N o longer eligible based on patient's age to complete this topic Meningococcal B Vaccine Aged Out No l onger eligible based on patient's age to complete this topic RSV Immunization Patients Un pio 20 months Aged Out No longer eligible b ased on patient's age to complete this topic Varicella Vaccines Aged Out No longer eligible based on patient's age to complete this topic Insurance [address] MEDICARE Member Subscriber Plan / Payer (Ef fective 2022-Present) Name:Gerardo Linda Relation to Subscriber:Self Name:Gerardo Linda Payer ID:[id number] Group ID:[id number] Type:Not on file Address: [place] [address] [address] [phone] Care Teams Funeral Planning Counselor Relationship Specialty Start Date End Date Judi Montero PA [facility] [place] [address] PCP - General 11/29/24
== END 2025-01-01 09:42 | disposition home or self-care (01) ==
LOC: HO.ENCR 09:19
PROVIDERS: PCP Internal Medicine; Visit Provider Student in an Organized Health Care Education/Training Program
DX: E04.1 Nontoxic single thyroid nodule (principal)
CPT/HCPCS: 99213

== ENCOUNTER → 2025-01-01 10:42 | Outpatient (BNV) | payer OTHER, SELFPAY | PROVIDERS: PCP Internal Medicine; Visit Provider Radiology Diagnostic Radiology | DX: G35 Multiple sclerosis (principal); G37.9 Demyelinating disease of central nervous system, unspecified | CPT/HCPCS: 70553 ==

== ENCOUNTER 2025-01-01 11:02 | Outpatient (REF) | payer OTHER, SELFPAY ==
--- NOTE | ~2025-01-01 | MR_ITS ---
EXAMINATION: MR BRAIN WITHOUT AND WITH CONTRAST CLINICAL INFORMATION: MS. COMPARISON: August 07, 2023. TECHNIQUE: Multiplanar, multisequence MRI of the brain was obtained before and after the intravenous administration of 5.0 mL gadolinium based (Gadavist) without reported immediate complications.. FINDINGS: Patient's motion artifact. No abnormal enhancement within the intra-axial or the extra-axial compartment of the cranium. No restricted diffusion. There is a focal, patchy, 7 mm nonenhancing no restricted diffusion hyperintense T2 signal in the right midline deep periventricular white matter/cingulate gyrus. There is a focal 8 mm nonenhancing no restricted diffusion ovoid shaped hyperintense T2 FLAIR signal in the deep left frontal white matter hernandez radiata. There is a 5 mm subtle hyperintense T2 FLAIR no restricted diffusion or enhancing signal abnormality in the deep periventricular white matter of the anterior right temporal lobe. No signal abnormality within the infratentorial compartment. Flow-void signal within the main cerebral vessels is normal. Sellar/suprasellar region demonstrated no CSF prominence suggesting diaphragmatic sella insufficiency. There is a 4 mm descensus of the cerebellar tonsils below foramen magnum. CSF prominence in the Meckel's caves. Mucosal thickening, left maxillary sinus. MR/MR head/brain wo/w con IMPRESSION: Nonenhancing no restricted diffusion supratentorial compartment demyelinating plaques with similar morphology pattern distribution number since prior exam. Low-lying cerebellar tonsils. No acute brain abnormality. Electronically signed by: Roland Chen MD 01/01/2025 01:47 PM EDT
== END 2025-01-01 11:03 | disposition home or self-care (01) ==
LOC: HO.MRI 11:02
PROVIDERS: PCP Internal Medicine; Visit Provider Physician Assistant Medical
DX: G35 Multiple sclerosis (principal); E04.2 Nontoxic multinodular goiter
CPT/HCPCS: 70553; 99212; A9585

== ENCOUNTER 2025-02-28 13:45 | Outpatient (AMB) | payer OTHER, SELFPAY ==
[2025-02-28 13:52] VITALS: BP 138/60; PULSE 67; O2SAT 97; BMI 20.2
--- NOTE | 2025-02-28 13:52 | A.OFFVIS_ITS ---
Vital Signs 3 02/28/25 13:52 Height 5 ft 2 in Weight 110 lb 7.225 oz BMI 20.2 BP 138/60 Blood Pressure Location Lt brachial Position Sitting Pulse 67 Pulse Source Pulse Oximeter Pulse Oximetry (%) 97 Oxygen Delivery Method Room Air Intake Visit Reasons: biospy f/u Intake Note: Patient present today for biopsy follow up. Security Installer Required: Yes Security Installer Language: Slab Lifting Supervisor Services: Security Installer Offered & Declined Accompanied by: Grand Child Allergies pravastatin Allergy (Unknown, Verified 02/28/25 13:56) Unknown simvastatin Allergy (Unknown, Verified 02/28/25 13:56) Unknown metformin Adverse Reaction (Intermediate, Verified 02/28/25 13:56) Abdominal Pain Penicillins Adverse Reaction (Verified 02/28/25 13:56) Weakness Medication List - Last Reconciled 02/28/25 by Yakelin Lorenzo MD acetaminophen (Tylenol Extra Strength) 500 mg PO Q6H PRN iqumgdupse-bqnjnlz-M-mefolate 600-2-6 mg (Cerefolin Brain Wellness) 1 tab PO BEDTIME 3 months MDD t tablet blood pressure monitor (Blood Pressure Kit) As directed blood sugar diagnostic As directed check the blood sugar once a day ONE TOUCH blood-glucose meter (OneTouch Ultra2 Meter kit) As directed check the blood sugar once a day cholecalciferol (vitamin D3) 25 mcg PO DAILY 3 months diclofenac sodium 1% (Voltaren Arthritis Pain) 4 grams topical QID gabapentin 100 mg PO BEDTIME lancets As directed check the blood sugar q.day lisinopril 5 mg PO DAILY 90 days lorazepam 1-2 tab orally 1 hour before the procedure PRN; omega-3 fatty acids (Fish Oil Concentrate) 1,000 mg PO DAILY [One touch Ultra test strips Use 1 test strip once a day] rosuvastatin 5 mg PO DAILY HPI Comments Details: 74 YO F who is seen for follow up of multinodular thyroid . Here with daughter Monik. HPI from prior visit Was found to have thyroid nodules on cervical MRI incidentally in October 2023, then underwent thyroid ultrasound 12/14 showed multiple bilateral nodules, i reviewed the images myself which showed the right dominant 1.2 cm TIRADS 3 nodule and the dominant left inferior 2.9 cm which is TR5 with echogenic foci. Underwent biopsy of the left inferior 2.9 cm nodule on 03/15/2024, which came back as AUS (Skippers category 3), with nuclear irregularities, Afirma had low RNA yield so no results obtained. Currently denies any dysphagia or hoarseness of voice. Denies sensation of swelling in the neck or difficulty breathing while lying flat. Denies any tenderness in the neck. Some intermittent choking when she eats. with big bites. Sometimes a forceful swallowing is required. Denies any palpitations, tremors, weight loss, frequent bowel movements. Denies any ocular complaints, blurred or double vision. Denies hair loss, dry skin, heat or cold intolerance, weight gain, confusion. She has chronic constipation. Denies any history of head or neck irradiation. Denies any family history of thyroid cancer. Daughter has hyperthyroidism TSH normal from November 2023. Denies having ever used lithium, amiodarone or biotin supplements. 06/07/2024: Underwent repeat biopsy of the left inferior nodule which came back again as AUS, Skippers category 3 with nuclear atypia, Afirma came back suspicious with a 50% chance of malignancy. Interval history She was being planned for left lobectomy, had surgical date for 02/20/[address] Cayetano Pereira at [facility] however patient came down with a viral infection in her daughter was also hospitalized so she was unable to make it to surgery and canceled it. Has not rescheduled it yet. Today denies any compressive symptoms. Taking vitamin D 1000 units daily Physical exam General: sitting comfortably in no acute distress HEENT: normocephalic/atraumatic, , moist oral mucosa Neck: supple, symmetrical,palapable 3 cm left lobe nodule , no dorsocervical or supraclavicular fat pads Cardiac: normal heart sounds Pulm: normal breath sounds B/L, no added breath sounds Abd: not distended, no tenderness Extremities: no edema, no signs of myxedema Laboratory Tests 12/17/23 06:40 TSH 1.47 Free T4 0.95 Laboratory Tests 12/17/23 06:40 25-OH Vitamin D Total 23.9 L Laboratory Tests 10/30/24 07:52 TSH 1.11 Free T4 0.98 US THYROID 12/14 i reviewed the images myself which showed the right dominant 1.2 cm TIRADS 3 nodule and the dominant left inferior 2.9 cm which is TR5 with echogenic foci. CLINICAL INFORMATION: Nontoxic single thyroid nodule. COMPARISON: None available. TECHNIQUE: Linear transducer grayscale and color Doppler examination with attention to the region of the thyroid. FINDINGS: SIZE: Measurements of the thyroid lobes and nodules are given in sagittal, anteroposterior and transverse dimensions respectively. Right Thyroid Lobe: 6.4 x 2.5 x 2.8 cm, volume 23.2 mL. Parenchyma: The gland echotexture is heterogeneous. Thyroid vascularity is normal. Left Thyroid Lobe: 5.9 x 2.7 x 3.0 cm, volume 25.5 mL. Parenchyma: The gland echotexture is heterogeneous. Thyroid vascularity is normal. Isthmus: 0.3 cm in maximum AP dimension. Estimated total number of nodules greater than or equal to 1 cm: 3. Item Processing Clerk nodules are described as follows: 1. Location: Right superior. Size: 1.1 x 1.0 x 0.6 cm, volume 0.337 mL. Nodule characteristics: Composition: Solid (2). Echogenicity: Isoechoic (1). Shape: Not taller than wide (0). Margins: Smooth (0). Echogenic Foci: None (0). ACR TI-RADS total points: 3 ACR TI-RADS category: 3 2. Location: Right mid. Size: 0.8 x 0.4 x 0.5 cm, volume 0.082 mL. Nodule characteristics: Composition: Spongiform (0). Echogenicity: Anechoic (0). Shape: Not taller than wide (0). Margins: Smooth (0). Echogenic Foci: None (0). ACR TI-RADS total points: 0 ACR TI-RADS category: 1 3. Location: Right inferior. Size: 1.2 x 1.0 x 1.0 cm, volume 0.656 mL. Nodule characteristics: Composition: Solid (2). Echogenicity: Hyperechoic (1). Shape: Not taller than wide (0). Margins: Smooth (0). Echogenic Foci: None (0). ACR TI-RADS total points: 3 ACR TI-RADS category: 3 4. Location: Left inferior. Size: 2.7 x 2.9 x 2.1 cm, volume 8.4 mL. Nodule characteristics: Composition: Solid (2). Echogenicity: Hypoechoic (2). Shape: Not taller than wide (0). Margins: Lobulated (2). Echogenic Foci: None (0). ACR TI-RADS total points: 6 ACR TI-RADS category: 4 5. Location: Left mid. Size: 0.8 x 0.8 x 0.5 cm, volume 0.173 mL. Nodule characteristics: Composition: Solid/almost completely solid (2). Echogenicity: Hypoechoic (2). Shape: Not taller than wide (0). Margins: Smooth (0). Echogenic Foci: None (0). ACR TI-RADS total points: 4 ACR TI-RADS category: 4 NODES: No lymphadenopathy is seen in the tissue surrounding the thyroid gland. US/US thyroid IMPRESSION: Enlarged, heterogeneous multinodular thyroid gland. 2.7 cm left lower thyroid nodule TR4 thyroid nodule (less likely pseudonodule) meets criteria for biopsy. Fine-needle aspiration recommended. This study was presented to [facility] November for interpretation. [facility] staff will provide results to referring provider at this time. [facility] Medical History Cervical spinal stenosis Multiple sclerosis involving brain stem Anxiety Seizure disorder Vitamin D deficiency Osteopenia Hypercholesterolemia Type 2 diabetes mellitus with hyperglycemia Surgical History S/P thyroid biopsy History of tubal ligation Family History Father Hypertension Mother Cancer Brother Diabetes Social History Household Members: Children Household Members Other:: Daughter: Monik Housing: Apartment Do you presently have visiting nurse or other home services: No Alcohol intake: never Patient Tobacco Use Status: Former Tobacco user Tobacco use type: Cigarette Cigarettes Per Day: 1 Years Smoked: 5 e-Cigarette/Vaping Use: Never Used Second Hand Smoke Exposure: No service: No Current occupational status: retired Cognitive needs: Yes Hearing needs: No Vision needs: Yes Physical Exam Vital Signs: Last Vital Signs Pulse 67 02/28/25 13:52 BP 138/60 02/28/25 13:52 Pulse Ox 97 02/28/25 13:52 Oxygen Delivery Method Room Air 02/28/25 13:52 BMI result Body Mass Index 20.2 Assessment & Plan Assessment & Plan (1) Thyroid nodule: Comment: 03/12/2024Thyroid, left lower lobe nodule, fine needle aspiration: Atypia of undetermined significance (Skippers category III May 2024 biopsy atypia of unknown significance Code(s): E04.1 - Nontoxic single thyroid nodule Category: Medical Plan: Patient with no family history of thyroid cancer, with no personal history of head or neck radiation coming in today for follow up of multinodular thyroid. She does not have any significant compressive symptoms. Ultrasound of the thyroid November 2023 showed bilateral nodules with a right inferior dominant 1.2 cm nodule which is solid, hypoechoic, TR 3 category and the left inferior dominant 2.9 cm nodule which is solid, hypoechoic, has somewhat lobulated margins, punctate echogenic foci, TR 5 category. This nodule met criteria for FNA and per DIANA this is high suspicion nodule with greater than 50% chance of malignancy.Underwent biopsy of the left inferior 2.9 cm nodule on 03/15/2024, which came back as AUS (Skippers category 3), with nuclear irregularities, Afirma had low RNA yield so no results obtained. 06/07/2024: Underwent repeat biopsy of the left inferior nodule which came back again as AUS, Skippers category 3 with nuclear atypia, Afirma came back suspicious with a 50% chance of malignancy. She is biochemically euthyroid. September 2024: Saw Dr. Cayetano Pereira at [facility] for surgical consultation, was being planned for left lobectomy. She was scheduled for surgery on 02/20/2025 but came down with a viral infection and daughter was also hospitalized so they cancel surgery. Taking vitamin D 1000 units daily Vitamin-D level noted to be low at 23 from November 2023, Discussed with her complication of injury to parathyroid glands in thyroid surgery and importance of vitamin-D intake to avoid risk of hypocalcemia. Plan: -I have asked her to call Dr. Cayetano Pereira office and reschedule left lobectomy -I have asked patient to let us know the date of her surgery as she would need to be seen postoperatively 6-8 weeks -continue vitamin-D 1000 units daily -for now we will tentatively schedule her for follow up in July 2025 Plan See above Patient Instructions: Please call Dr. Cayetano Pereira's office and reschedule the surgery to a few months later when it is convenient for you Once you have the date for surgery, please call our office and let us know the date for surgery so we can schedule you for a follow up 6-8 weeks after your surgery For now we will make a tentative follow up with me for July 2025, but we can reschedule this once you have a surgical date. Coding Level of Care Code Est Pt Level 3 (66192) Diagnoses Thyroid nodule E04.1
== END 2025-02-28 14:11 | disposition home or self-care (01) ==
LOC: HO.ENCR 13:46
PROVIDERS: PCP Internal Medicine; Visit Provider Student in an Organized Health Care Education/Training Program
DX: E04.1 Nontoxic single thyroid nodule (principal)
CPT/HCPCS: 99213

== ENCOUNTER → 2025-02-28 13:45 | Outpatient (BNVA) | payer OTHER, SELFPAY | PROVIDERS: PCP Internal Medicine; Visit Provider Student in an Organized Health Care Education/Training Program | DX: E04.1 Nontoxic single thyroid nodule (principal) | CPT/HCPCS: 99212 ==

== ENCOUNTER 2025-03-06 15:10 | Outpatient (AMB) | payer OTHER, SELFPAY ==
--- NOTE | 2025-03-06 15:40 | MHC.OFFVIS ---
Vital Signs 03/06/25 15:41 Height 5 ft 2 in Weight 109 lb 6 oz BMI 20.0 BP 120/64 Blood Pressure Location Rt brachial Position Sitting Pulse 51 Pulse Source Pulse Oximeter Pulse Oximetry (%) 100 Oxygen Delivery Method Room Air Intake Visit Reasons: 3mnth follow up Intake Note: Patient presents follow up MS medication. MRI in chart. Grand daughter states primary infant childcare provider was recently hospitalized they are working out everything with that. Sweep Press Operator Required: Yes Sweep Press Operator Language: Industrial Design Intern Services: Sweep Press Operator Offered & Declined Sweep Press Operator Name: grand daughter Information Interpreted: non-clinical & clinical Accompanied by: Grand Child Allergies pravastatin Allergy (Unknown, Verified 03/06/25 15:49) Unknown simvastatin Allergy (Unknown, Verified 03/06/25 15:49) Unknown metformin Adverse Reaction (Intermediate, Verified 03/06/25 15:49) Abdominal Pain Penicillins Adverse Reaction (Verified 03/06/25 15:49) Weakness HPI Comments Details: 74 year old r. handed Turkmen speaking female presents for a f/u of cognitive issues. Grand-daugther Tashi helps with history today. She just moved to [place], has less stairs to ascend and descend daily and she likes her new home. She has MS and electric shock like sensations through out the night down the neck, she uses relaxation techniques for pain. She sleeps well, goes to bed at 9pm wakes up at 5am with 2 bathroom breaks. Her diet is good, eats lots of nutrient dense, fiber rich foods, and has a BM 2-3x daily. She has to slowly chew her food. She has weakness in her hands bilaterally and paresthesias in both hands along with cramping, due to fine motor activities, writing and buttoning shirt, zipping jackets. She is active with all her ADLs, lives with her daughter, who supervises all activities. She has L. leg muscle spasms and twitching, however improves with stretching and lifts her legs up. Cervicogenic headaches only when she moves her head laterally as if her balance and equilibrium is off and has to slowly change positions to avoid vertigo. She does exercises at home, declines PT. She has blurry vision, and no longer able to focus on objects. She feels unbalanced when she walks, she can not focus on the path in front of her and uses her walker or takes daughter's arm. Her memory is worse, she has word finding difficulty, misplaces items, forgets medications, daughter manages her meds. Her mood is positive, she talks to her daughter daily. She is anxious about the upcoming thyroidectomy due to nodules and possible malignancy, surgery is now in May 2024. [facility] Medical History Cervical spinal stenosis Multiple sclerosis involving brain stem Anxiety Seizure disorder Vitamin D deficiency Osteopenia Hypercholesterolemia Type 2 diabetes mellitus with hyperglycemia Surgical History S/P thyroid biopsy History of tubal ligation Family History Father Hypertension Mother Cancer Brother Diabetes Social History Household Members: Children Household Members Other:: Daughter: Monik Housing: Apartment Do you presently have visiting nurse or other home services: No Alcohol intake: never Patient Tobacco Use Status: Former Tobacco user Tobacco use type: Cigarette Cigarettes Per Day: 1 Years Smoked: 5 e-Cigarette/Vaping Use: Never Used Second Hand Smoke Exposure: No service: No Current occupational status: retired Cognitive needs: Yes Hearing needs: No Vision needs: Yes Physical Exam Vital Signs: Last Vital Signs Pulse 51 03/06/25 15:41 BP 120/64 03/06/25 15:41 Pulse Ox 100 03/06/25 15:41 Oxygen Delivery Method Room Air 03/06/25 15:41 BMI result Body Mass Index 20.0 Const General: cooperative and comfortable Nutritional Appearance: thin and underweight Orientation/consciousness: patient oriented x3 Limitations: ambulation with walker HEENT Face and sinus: Yes face symmetric Neck Neck: Yes other (Limited ROM to r/l and ext/flexion) Resp Effort & Inspection: normal respiratory effort and able to speak in complete sentences Neuro General: patient oriented x3 and moves all extremities Cranial nerves: Yes Facial sensation intact/muscles of mastication intact, Yes Normal facial strength present, Yes Midline tongue present, Yes Ability to bilaterally elevate shoulders present and Yes Other cranial nerve findings present (unable to rotate the head or flex or extend the neck) Cognition (Neuro): normal cognition Gait exam (Neuro): Assisted gait required and Assistive device used (cane and holds on to the daughter) Motor exam (neuro): Abnormal motor strength present (3/5 strength ) and Abnormal muscle tone present (thin/ frail) Psych Appearance: well kempt Speech and movement: Slowed movement present (Neuro) Thought process: Normal thought process present Thought content: Normal thought content present Results Reviewed Results Reviewed: labs reviewed with pt. Assessment & Plan Assessment & Plan (1) Multiple sclerosis involving brain stem: Comment: lesion in right dorsal roel Multiple sclerosis Code(s): G35 - Multiple sclerosis Category: Medical Plan: (2) Chronic fatigue: Code(s): R53.82 - Chronic fatigue, unspecified Category: Medical (3) Balance disorder: Code(s): R26.89 - Other abnormalities of gait and mobility Category: Medical (4) Cervical spinal stenosis: Comment: multilevel moderate c 4 c5 Code(s): M48.02 - Spinal stenosis, cervical region Category: Medical (5) Forgetfulness: Code(s): R68.89 - Other general symptoms and signs Category: Medical Plan Balance and Gait Difficulties continue PT as needed, changing positions slowly and f/u with [facility] for MS symptoms. Foot drop, vision and gait impairment. labs B12 levels elevated will complete labs and f/u cognitive decline [employer] brain wellness 1 tablet daily at bedtime for 90 days. MRI with contrast r. dorsal roel lesion reviewed with pt. Vision f/u at [facility] Thyroidectomy, lobectomy surgical consult? May 2024? f/u in 3 months Orders: Orders Comprehensive Met. Panel 03/06/25 R53.82 - Chronic fatigue, unspecified Ferritin 03/06/25 R53.82 - Chronic fatigue, unspecified Vitamin D 25-OH Total 03/06/25 R53.82 - Chronic fatigue, unspecified Vitamin B12 and Folate 03/06/25 R53.82 - Chronic fatigue, unspecified TSH reflex Free T4 03/06/25 R53.82 - Chronic fatigue, unspecified Complete Blood Count no Diff 03/06/25 R53.82 - Chronic fatigue, unspecified Homocysteine 03/06/25 R53.83 - Other fatigue, G47.9 - Sleep disorder, unspecified, R53.82 - Chronic fatigue, unspecified Methylmalonic Acid 03/06/25 R53.83 - Other fatigue, G47.9 - Sleep disorder, unspecified, R53.82 - Chronic fatigue, unspecified Hemoglobin A1c 03/06/25 R53.82 - Chronic fatigue, unspecified Referrals Neurology Referral G35.D - Multiple sclerosis, unspecified Patient Instructions: Please complete the following fasting labs to rule out deficiencies. CBC/CMP/ B12/ Vit D/ TSH/ Homocysteine and MMA/ Ferritin. Sleep Hygiene provided: set a scheduled bedtime and wake time to help regulate the circadian rhythm and balance the release of pituitary hormones. Sleep in a dark room, temperatures below 68 degrees, and no devices n bed. Limit caffeinated products 6 hours prior to bed, and limit fluids 2-4 hours prior to bed. Gentle night yoga, diffusing essential oils, and playing soft music can be relaxing. Coding Level of Care Code Est Pt Level 4 (72427) Diagnoses Multiple sclerosis involving brain stem G35 Chronic fatigue R53.82 Balance disorder R26.89 Cervical spinal stenosis M48.02 Forgetfulness R68.89
[2025-03-06 15:41] VITALS: BP 120/64; PULSE 51; O2SAT 100
--- OUTSIDE RECORDS SUMMARY | 2025-03-06 18:05 | XMS_ITS | Clinical Summary ---
Author Organization [address] [facility] Address [address] [place] [address] Phone Care Team Providers Care Pit Hand Name Role Phone Judi Montero Primary Care Provider [phone] Social History Tobacco Use Types Packs/Day Years Used Date Smoking Tobacco: Never Assessed Comments Unknown Sex and Gender Information Value Date Recorded Sex Assigned at Not on file Legal Sex Female 11:48 AM EDT Gender Identity Not on file Sexual Orientation Not on file Plan of Treatment Upcoming Encounters Date Type Department Care Team ([facility] st Contact Info) Description 06/14/2025 2:00 PM EST Consult [facility] [address] [facility] [address] [place] [address] Grant Arroyo MD [address] [place] [address] Health Maintenance Due Date Last Done Comments Colorectal Cancer Screening: Colonoscopy 1950 DTaP,Tdap,and Td Vaccines (1 - Tdap) 1968 Pneumococcal Vaccine: 50+ Ye ars (1 of 1 - PCV) 1999 Zoster Vaccines (1 of 2) 1999 Depression Screening 05/24/2024 RSV Immunization Adult Patie nts (1 - 1-dose 75+ series) 2024 Falls Risk Assessment 11/27/2024 Hepatitis C Screening 11/27/2024 Medicare Annual Wellness Visit 11/27/2024 Osteoporosis Screening (Bone Density Screening) 11/27/2024 Social Influencers of Health Screening 11/27/2024 COVID-19 Vaccine (1 - 2023-2 5 season) 2025 Influenza Vaccine (#1) 2025 HIB Vaccines Aged [...] patient's age to complete this topic Insurance MEDICARE Member Subscriber Plan / Payer (Ef fective 2022-Present) Name:Gerardo Linda Relation to Subscriber:Self Name:Gerardo Linda Payer ID:[id number] Group ID:[id number] Type:Not on file Address: [facility] [place] [address] Care Teams Pit Hand Relationship Specialty Start Date End Date Judi Montero PA [address] [place] [address] PCP - General 11/29/24
== END 2025-03-06 16:39 | disposition home or self-care (01) ==
LOC: HO.HSMS 15:11
PROVIDERS: PCP Internal Medicine; Visit Provider Physician Assistant Medical
DX: G35.D Multiple sclerosis, unspecified (principal); R53.82 Chronic fatigue, unspecified; R26.89 Other abnormalities of gait and mobility; M48.02 Spinal stenosis, cervical region; R68.89 Other general symptoms and signs
CPT/HCPCS: 99214

== ENCOUNTER → 2025-03-06 15:10 | Outpatient (BNVA) | payer OTHER, SELFPAY | PROVIDERS: PCP Internal Medicine; Visit Provider Physician Assistant Medical | DX: R26.89 Other abnormalities of gait and mobility (principal); G35.D Multiple sclerosis, unspecified; R53.82 Chronic fatigue, unspecified; M48.02 Spinal stenosis, cervical region; G47.9 Sleep disorder, unspecified; R68.89 Other general symptoms and signs | CPT/HCPCS: 99212 ==